=== PATIENT | male | born 1940 | race Caucasian/White ===

== ENCOUNTER 2021-10-10 18:44 | Emergency (ER) | payer MEDICARE, BC, SELFPAY ==
[2021-10-10 18:54] VITALS: BP 156/85; PULSE 63; RESP 18; TEMP 36.8; O2SAT 95; BMI 29.5
--- NOTE | 2021-10-10 18:56 | CRLHL7_ITS ---
For Patients: As a result of the Century Cures Act, medical imaging exams and procedure reports are released immediately into your electronic medical record. You may view this report before your referring provider. If you have questions, please contact your health care provider. INDICATION: Head injury. TECHNIQUE: CT head without contrast. COMPARISON: 06/04/2021. FINDINGS: CSF spaces: Within normal limits for age. Brain parenchyma and extra-axial spaces: The rodrigues-white differentiation is normal. No sign of mass, hemorrhage, or midline shift. No extra-axial fluid collection. Skull base and calvarium: Unchanged opacification of the left maxillary and sphenoid sinuses. The visualized orbits are grossly unremarkable. No skull fractures. Right frontal scalp laceration present. IMPRESSION: Right frontal scalp laceration without fracture or intracranial hemorrhage. Please note that all CT scans at this facility use dose modulation, iterative reconstruction, and/or weight-based dosing when appropriate to reduce radiation dose to as low as reasonably achievable. Dictated by Jersey Anguiano MD @ 10/10/2021 8:14:05 PM (Electronically Signed)
--- NOTE | 2021-10-10 19:06 | ED_ITS ---
HPI - Wound/Laceration General Time Seen by Provider: 19:06 Date Seen: 10/10/21 Chief Complaint: Laceration/Wound Stated Complaint: head laceration Time Seen by Provider: 10/10/21 19:00 Source: patient, family (His daughter is present) and RN notes reviewed Mode of arrival: ambulatory Limitations: no limitations History of Present Illness HPI narrative: Patient was sent directly to head CT with a fall onto concrete causing a laceration to his forehead. Nursing staff triaged him and sent him test head CT as he is on anticoagulation with Coumadin. Patient was seen as soon as he was back in department from head CT. He believes his tetanus is up-to-date per nursing staff but we will be checking that. Patient was working out in the shop when he tripped and lost his balance. He fell forward hitting his head on concrete. He sustained a laceration over his right eyebrow area, there is a flap there that did bleed, bleeding is now subsequently controlled. He denies any loss of consciousness, there was another family member with him which corroborated this history. Denies any neck pain. Denies any visual changes. Denies any difficulty breathing or chest pain. Has no abdominal pain. Did hit his right knee and there is a little discomfort there but was able to ambulate on it. This happened shortly prior to arrival. Patient is on Coumadin. He has been on Coumadin long-term. He believes his last INR was about 4 and half weeks ago and was in the 2 range, he did remember the exact number but I do not remember what he said at time of this dictation. He is scheduled to follow up on the of this month. His daughter reports he has 2 alcoholic beverages a day, nothing more at this point. Location: face Extremity Location: Right: knee Patient tetanus UTD: No (Last in 2006) Context: fall (After tripping) Associated symptoms: pain (In right forehead area where laceration is) Related Data Home Medications Medication Instructions Recorded Confirmed warfarin 5 mg tablet mg 10/10/21 Allergies Allergy/AdvReac Type Severity Reaction Status Date / Time No Known Drug Allergies Allergy Verified 10/10/21 18:54 Review of Systems Status of ROS: Reports: 10 or more systems reviewed and unremarkable except as noted in History and below PFSH PFSH Social History Smoking Status: Unknown if ever smoked Second hand tobacco smoke exposure: No How often do you have a drink containing alcohol: 2-4 times a month How many standard drinks containing alcohol do you have on a typical day: 1 or 2 How often do you have six or more drinks on one occasion: Less than monthly AUDIT-C Alcohol total score: 3 Non-prescribed substance use: denies use Exam Const: Vital Signs, click to edit/add: Vital Signs - 24 hr 10/10/21 18:54 Temperature 98.2 F Pulse Rate [Right Pulse Oximeter] 63 Respiratory Rate 18 Blood Pressure [Ri ght Upper Arm] 156/85 H Pulse Oximetry 95 Documenting provider has reviewed patient's vital signs: yes Common normals: no apparent distress, average body habitus, oriented x3, no limitations, healthy appearing and alert General appearance: cooperative and comfortable Orientation/consciousness: Yes awake HENMT: Common normals: normocephalic, hearing grossly normal bilaterally, external ears normal and external nose normal Head and scalp: normocephalic and laceration (Flap above right eyebrow, L-shaped about 3 cm long) Face and sinus: normal facial exam (Outside of laceration) Nose: external nose normal External ear: external ears normal Eye: Common normals: PERRL, EOMs intact bilaterally and conjunctivae normal Conjunctiva: conjunctiva(e) normal Pupil: PERRL Neck & C-Spine: Common normals: full ROM, no lymphadenopathy, supple and thyroid normal Thyroid: thyroid normal Resp: Common normals: normal respiratory effort and clear to auscultation bilaterally Auscultation: clear to auscultation bilaterally Cardio: Common normals: regular rate, regular rhythm, S1 normal heart sound, S2 normal heart sound, no gallops, no clicks and no murmurs Rate: regular rate Rhythm: regular rhythm Heart sounds: S1 normal and S2 normal Other: Is known to have atrial fibrillation but his heart rate certainly sounds quite regular at this time. GI: Common normals: Normal to inspection, nondistended, normoactive bowel sounds present, soft to palpation, non-tender, no hepatosplenomegaly and no masses Palpation: soft and no hepatosplenomegaly Extremity: Common normals: normal to inspection and full ROM (But complains of pain with full flexion of his right knee.) Other: Joint line is nontender over the right knee joint, no ecchymosis, abrasions or open wounds noted. Neuro: Common normals: oriented x3 Sensorium/orientation: awake and alert Course Course Hospital Course: Patient was sent for head CT immediately. After that patient was examined and laceration repaired after nursing irrigated. Please see procedure note. He did not want his INR done tonight which I think is reasonable. He has no excessive bleeding from his wound and thus I do not have concerns about being supratherapeutic. The a right knee x-ray to rule out fracture. I have reviewed with patient and his daughter that there still could be intra-articular issues such as cartilage damage from a fall. He are ever does not have any joint effusion or swelling with being on Coumadin I think we might see that if there was significant cartilage damage from a fall. Vital Signs Vital signs: Initial Vital Signs Temperature 98.2 F 10/10/21 18:54 Temperature Source Temporal Artery Scan 10/10/21 18:54 Pulse Rate 63 10/10/21 18:54 Respiratory Rate 18 10/10/21 18:54 Blood Pressure 156/85 H 10/10/21 18:54 Blood Pressure Mean 108 10/10/21 18:54 Blood Pressure Position Sitting 10/10/21 18:54 Pulse Oximetry 95 10/10/21 18:54 Oxygen Delivery Method 10/10/21 18:54 Vital Signs Temperature 98.2 F 10/10/21 18:54 Pulse Rate 63 10/10/21 18:54 Respiratory Rate 18 10/10/21 18:54 Blood Pressure 156/85 H 10/10/21 18:54 Pulse Oximetry 95 10/10/21 18:54 Temperature 98.2 F 10/10/21 18:54 Pulse Rate 63 10/10/21 18:54 Respiratory Rate 18 10/10/21 18:54 Blood Pressure 156/85 H 10/10/21 18:54 Pulse Oximetry 95 10/10/21 18:54 MDM - Wound/Laceration MDM Narrative Medical decision making narrative: Rule out intracranial bleed, skull fracture. Also rule out fracture of the knee. Imaging Data CT scan - head: Attestation: I have reviewed the pertinent imaging results. Radiologist's impression: Patient: NIKKIE LEBRON Facility:?[facility] Patient ID:?[id number] Site Patient ID:?[id number]. Site :?[id number] Study:?CT Head W/O-10/10/2021 7:23:46 PM Ordering Physician:?Shannan Araya Final Report: INDICATION: Head injury. TECHNIQUE: CT head without contrast. COMPARISON: 06/04/2021. FINDINGS: CSF spaces: Within normal limits for age. Brain parenchyma and extra-axial spaces: The rodrigues-white differentiation is normal. No sign of mass, hemorrhage, or midline shift. No extra-axial fluid collection. Skull base and calvarium: Unchanged opacification of the left maxillary and sphenoid sinuses. The visualized orbits are grossly unremarkable. No skull fractures. Right frontal scalp laceration present. IMPRESSION: Right frontal scalp laceration without fracture or intracranial hemorrhage. Please note that all CT scans at this facility use dose modulation, iterative reconstruction, and/or weight-based dosing when appropriate to reduce radiation dose to as low as reasonably achievable. Dictated by Jersey Anguiano MD @ 10/10/2021 8:14:05 PM (Electronic Signature) Right knee x-ray: Attestation: I have reviewed the pertinent imaging results. My impression: I do not see or appreciate any acute fracture on my preliminary read but there is a stippling type lesion in the distal femur. Will await Radiology over-read. Radiologist's impression: Patient: NIKKIE LEBRON Facility:?[facility] Patient ID:?[id number] Site Patient ID:?[id number]. Site :?[id number] Study:?XRay Knee 2 VIEWS-10/10/2021 8:19:46 PM Ordering Physician:?Shannan Araya Final Report: INDICATION: Fall, knee pain, injury, pain TECHNIQUE: Knee radiograph 2 views right COMPARISON: None FINDINGS: Bone: No acute fractures or aggressive bone lesions are identified. Is a chondroid type lesion in the distal femur measuring 3 cm in diameter. 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 No significant knee effusion is seen. Soft tissue: Unremarkable. No radiopaque foreign bodies are seen. IMPRESSIONS: 1. No acute osseous injuries or abnormalities are noted. 2. Is a chondroid type lesion in the distal femur measuring 3 cm in diameter. Comparison with any prior outside imaging is recommended. If these cannot be obtained, follow up radiograph in 3 months is warranted to document stability. Dictated by Michael Grider MD @ 10/10/2021 8:43:58 PM Dictated by: Michael Grider MD @ 10/10/2021 20:44:02 (Electronic Signature) Did review with his daughter the chondroid lesion and showed her pictures on the x-ray. She will have him follow up with his primary care provider or orthopedics depending on if he has ongoing issues or if he just needs a 3 month x-ray to see if there is any change. Critical Care Time Critical Care Time Critical Care Time: No Discharge Plan Discharge Clinical Impression: Laceration of face, Fall, Acute pain of right knee Patient Disposition: Home, Self-Care Condition: Stable Instructions: Care For Your Stitches (ED), Laceration (ED), Fall Prevention for Older Adults (ED), Knee Pain (ED) Additional Instructions: Use bandages on the laceration above here I with bacitracin during the day and as needed and if there is some mild bleeding. If concern for infection of the wound, please seek re-evaluation. Can use Tylenol per bottle directions if you have any discomfort. If there is ongoing knee pain, do recommend re-evaluation and consider seen orthopedics. You can see primary care provider or Orthopedics to follow up the chondroid lesion on the x-ray, if he is doing fine it is likely his primary care provider congested artery imaging films of his knee in 3 months time. Activity Level: Activity as Tolerated Prescriptions: No Action warfarin 5 mg tablet 0RF Label Comments: TAKE 2 TABLETS BY MOUTH EVERY DAY OR DIRECTED Follow Up/Referrals: Brien Blunt MD [Primary Care Provider] - Stand Alone Forms: [facility] Info Instructions Procedures Laceration Laceration 1: Pre procedure diagnosis: Right facial laceration, above right eye Post procedure diagnosis: Same Site marking: not applicable Name of person performing procedure: Quiana Campbell Site: face Size (cm): 3 Description: flap Depth: simple, single layer Local Anesthetic: lidocaine 1% Amount of anesthesia used (mL): 5 Pre-repair: wound explored (Flap but only into the superficial tissue.), irrigated extensively and deep structures intact Skin layer closed with: other (Ethilon) Size (cm): 4-0 Number of sutures: 6 Technique: simple, interrupted Conclusion: patient tolerated procedure
--- NOTE | 2021-10-10 19:45 | ED.NURSE ---
irrigation done, 300cc of NS to lac above right eyebrow
[2021-10-10] MEDS: LIDOCAINE 1% 20 ML VIAL 5 ML INJECTION (19:50)
--- NOTE | 2021-10-10 19:53 | CRLHL7_ITS ---
For Patients: As a result of the Cures Act, medical imaging exams and procedure reports are released immediately into your electronic medical record. You may view this report before your referring provider. If you have questions, please contact your health care provider. INDICATION: Fall, knee pain, injury, pain TECHNIQUE: Knee radiograph 2 views right COMPARISON: None FINDINGS: Bone: No acute fractures or aggressive bone lesions are identified. Is a chondroid type lesion in the distal femur measuring 3 cm in diameter. 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 No significant knee effusion is seen. Soft tissue: Unremarkable. No radiopaque foreign bodies are seen. IMPRESSIONS: 1. No acute osseous injuries or abnormalities are noted. 2. Is a chondroid type lesion in the distal femur measuring 3 cm in diameter. Comparison with any prior outside imaging is recommended. If these cannot be obtained, follow up radiograph in 3 months is warranted to document stability. Dictated by Michael Grider MD @ 10/10/2021 8:43:58 PM Dictated by: Michael Grider MD @ 10/10/2021 20:44:02 (Electronically Signed)
[2021-10-10 21:22] VITALS: BP 142/62; PULSE 80; RESP 16; O2SAT 98
--- NOTE | 2021-10-10 21:23 | ED.NURSE ---
pt stated he will get tetanus shot in clinic.
== END 2021-10-10 21:21 | disposition home or self-care (01) ==
LOC: ED 21:07
PROVIDERS: Emergency Provider Family Medicine; PCP Family Medicine
DX: S01.111A Laceration without foreign body of right eyelid and periocular area, initial encounter (principal); M25.561 Pain in right knee; W01.198A Fall on same level from slipping, tripping and stumbling with subsequent striking against other object, initial encounter
CPT/HCPCS: 12013; 70450; 73560; 99284

== ENCOUNTER 2022-04-18 11:42 | Emergency (ER) | payer MEDICARE, BC, SELFPAY ==
[2022-04-18 12:10] VITALS: BP 178/99; PULSE 68; RESP 24; TEMP 37.2; O2SAT 95; BMI 28.7
--- NOTE | 2022-04-18 12:46 | CRLHL7_ITS ---
For Patients: As a result of the Century Cures Act, medical imaging exams and procedure reports are released immediately into your electronic medical record. You may view this report before your referring provider. If you have questions, please contact your health care provider. INDICATION: Shoulder injury from fall TECHNIQUE: Shoulder radiograph 3 views right COMPARISON: None FINDINGS: Bone: No acute fractures or aggressive bone lesions are identified. Cephalad migration of the humeral head is noted, likely due to rotator cuff atrophy and/or tear. Severe diffuse osteopenia is present. Joint: The glenohumeral joint is unremarkable. The acromioclavicular joint has mild osteoarthritis. Soft tissue: Unremarkable. The visualized hemithorax is unremarkable in appearance. No radiopaque foreign bodies are seen. IMPRESSIONS: 1. No acute osseous injuries or abnormalities are noted. 2. Cephalad migration of the humeral head is noted, likely due to rotator cuff atrophy and/or tear. Dictated by Michael Grider MD @ 04/18/2022 1:32:13 PM Dictated by: Michael Grider MD @ 04/18/2022 13:32:20 (Electronically Signed)
--- NOTE | 2022-04-18 12:46 | CRLHL7_ITS ---
For Patients: As a result of the Cures Act, medical imaging exams and procedure reports are released immediately into your electronic medical record. You may view this report before your referring provider. If you have questions, please contact your health care provider. INDICATION: Fall. TECHNIQUE: Chest and left ribs 3 views. COMPARISON: None. FINDINGS: Cardiovascular and mediastinum: Mildly enlarged heart size. Aortic knob is prominent. Mediastinum is within normal limits. Left chest wall pacer with leads extending to the right atrium and ventricle. Lungs and pleural spaces: Lungs are clear. No sign of infiltrate or mass. No sign of pleural effusion. No pneumothorax. Bones and soft tissues: Detailed oblique images of the left ribs demonstrate subtle irregularity in a rib along the left anterior margin. IMPRESSION: Subtle irregularity along a left anterior rib possibly the 5th or 6th rib. Correlate with point tenderness. If there is persistent concern for fracture consider further evaluation with CT of the chest.. Dictated by Osmel Borden MD @ 04/18/2022 1:42:38 PM (Electronically Signed)
--- NOTE | 2022-04-18 12:47 | ED.GENADULT ---
HPI - General Adult General Chief complaint: Extremity Pain/Injury, Upper Stated complaint: Fell, hurt R shoulder, L rib Time Seen by Provider: 04/18/22 11:44 History of Present Illness HPI narrative: This 81-year-old male comes in for evaluation of an injury that occurred just prior to arrival. He was on a wet shop floor and slipped falling on his left side. He has left rib pain. He states that he had immediate pain and was unable to catch his breath for a few seconds. He did not hit his head or have loss of consciousness. He does report also some pain in the anterior aspect of his right shoulder. He is on Coumadin for chronic atrial fibrillation. Related Data Home Medications Medication Instructions Recorded Confirmed calcium-vit D3-ferrous fumarate tab PO 11/06/21 01/24/22 600 mg-125 unit-18 mg tablet clotrimazole 1 % topical cream applic topical 11/06/21 01/24/22 cyanocobalamin (vitamin B-12) 1,000 mcg IM .qmonth 11/06/21 04/18/22 1,000 mcg/mL injection solution triamcinolone acetonide 0.1 % 1 applic topical PRN 11/06/21 01/24/22 topical ointment warfarin 5 mg tablet 10 mg PO QDAY 11/06/21 04/18/22 Previous Rx's Medication Instructions Recorded hydrocodone 5 mg-acetaminophen 325 1 tab PO Q4-6H PRN pain #25 tabs 04/18/22 mg tablet Allergies Allergy/AdvReac Type Severity Reaction Status Date / Time No Known Drug Allergies Allergy Verified 01/24/22 08:46 Review of Systems Status of ROS: Reports: 10 or more systems reviewed and unremarkable except as noted in History and below Narrative: Constitutional: No fevers, no weight gain or loss. Eyes: No discharge. No vision changes. HENT: No congestion, no sore throat, no ear pain. Cardiovascular: No palpitations. Chest: Pain in the left lateral lower ribs. Respiratory: No shortness of breath, no wheezes, no cough. Gastrointestinal: No abdominal pain, no vomiting, no diarrhea. Genitourinary: No dysuria, no hematuria. Musculoskeletal: Normal range of motion. Skin: No rashes, no pruritis. Neurological: No dizziness, weakness, sensory change, speech change. Endo/Heme/Allergies: No bruising or bleeding. No polydipsia. Pysch: no suicidality, no anxiety, no insomnia. All other systems reviewed and are negative. [facility] Medical History Atrial fibrillation History of kidney cancer (~2013) Surgical History History of cholecystectomy (~2004) Social History Smoking Status: Former smoker What tobacco products do you use: cigarettes Smoking quit date/years: >15 years ago and cigars Second hand tobacco smoke exposure: No How often do you have a drink containing alcohol: 2-4 times a month How many standard drinks containing alcohol do you have on a typical day: 1 or 2 How often do you have six or more drinks on one occasion: Less than monthly AUDIT-C Alcohol total score: 3 Non-prescribed substance use: denies use Are you now , , , , never or living with a partner: Social isolation score (0-1 are the most socially isolated patients): 0 Exam Narrative: Exam Narrative: Constitutional: Well-developed, well-nourished. HEENT: Normocephalic, atraumatic. Neck: Normal range of motion. Nontender. Supple. Heart: Irregular. No murmurs. Normal rate. Intact distal pulses. Lungs: Clear to auscultation. No wheezes, rhonchi, or rales. Chest: Pain in the left lateral lower ribs. No sign of bruising. Abdomen: Normal bowel sounds. Nontender. No rebound tenderness. Genitalia: Deferred. Back: No midline tenderness. Normal range of motion. Extremities: Normal range of motion. No injury. Skin: Intact. No rash. Warm. No erythema or pallor. Neurologic: No altered sensation. No weakness. Alert and oriented. Psychiatric: No suicidality. No anxiety or depression. No insomnia. Nursing notes and vitals signs are reviewed. Const: Vital Signs, click to edit/add: Vital Signs - 24 hr 04/18/22 12:10 Temperature 99.0 F Pulse Rate [Pulse Oximeter] 68 Respiratory Rate 24 Blood Pressure [Le ft Upper Arm] 178/99 H Pulse Oximetry 95 Oxygen Delivery Me thod Room Air Course Vital Signs Vital signs: Initial Vital Signs Temperature 99.0 F 04/18/22 12:10 Temperature Source Temporal Artery Scan 04/18/22 12:10 Pulse Rate 68 04/18/22 12:10 Respiratory Rate 24 04/18/22 12:10 Blood Pressure 178/99 H 04/18/22 12:10 Blood Pressure Mean 125 04/18/22 12:10 Blood Pressure Position Sitting 04/18/22 12:10 Pulse Oximetry 95 04/18/22 12:10 Oxygen Delivery Method 04/18/22 12:10 Vital Signs Temperature 99.0 F 04/18/22 12:10 Pulse Rate 68 04/18/22 12:10 Respiratory Rate 24 04/18/22 12:10 Blood Pressure 178/99 H 04/18/22 12:10 Pulse Oximetry 95 04/18/22 12:10 Oxygen Delivery Method 04/18/22 12:10 Temperature 99.0 F 04/18/22 12:10 Pulse Rate 68 04/18/22 12:10 Respiratory Rate 24 04/18/22 12:10 Blood Pressure 178/99 H 04/18/22 12:10 Pulse Oximetry 95 04/18/22 12:10 Oxygen Delivery Method 04/18/22 12:10 Medical Decision Making MDM Narrative Medical decision making narrative: This patient has pain in his left ribs from a fall that occurred prior to arrival. X-ray imaging shows a possibility of a subtle fractures of the 5th and 6th ribs with no significant displacement. Lung crow appear normal without sign of pneumothorax. X-ray imaging of his right shoulder also has no acute findings. The patient received a rib belt and a prescription for tablets of Grant. His daughter made a follow-up appointment with his primary physician about a week from now. Imaging Data Chest x-ray: Radiologist's impression: Subtle irregularity along a left anterior rib possibly the 5th or 6th rib. Correlate with point tenderness. If there is persistent concern for fracture consider further evaluation with CT of the chest.. Discharge Plan Discharge Clinical Impression: Fracture, ribs Patient Disposition: Home w/ Parent or Adult Condition: Stable Additional Instructions: Take medication as needed and directed. Activity as tolerated. Follow up with primary MD or return if worsening. Prescriptions: New hydrocodone-acetaminophen 5-325 mg tablet 1 tab PO Q4-6H PRN (Reason: pain) Qty: 25 0RF No Action cyanocobalamin (vitamin B-12) 1,000 mcg/mL solution 1,000 mcg IM .qmonth triamcinolone acetonide 0.1 % ointment 1 applic topical PRN clotrimazole 1 % cream topical [id number] fumarate 600-125-18 mg-unit-mg tablet PO warfarin 5 mg tablet 10 mg PO QDAY Label Comments: TAKE 2 TABLETS BY MOUTH EVERY DAY OR DIRECTED Follow Up/Referrals: Brien Blunt MD [Primary Care Provider] - Stand Alone Forms: [facility] Info Instructions
[2022-04-18] MEDS: MORPHINE 10 MG/ML inj 6 MG IM (12:58)
[2022-04-18 14:18] VITALS: BP 138/91; PULSE 89; RESP 18; TEMP 36.7; O2SAT 93
== END 2022-04-18 14:40 | disposition home or self-care (01) ==
PROVIDERS: Emergency Provider Emergency Medicine Emergency Medical Services; PCP Family Medicine
DX: S22.39XA Fracture of one rib, unspecified side, initial encounter for closed fracture (principal); W01.0XXA Fall on same level from slipping, tripping and stumbling without subsequent striking against object, initial encounter
CPT/HCPCS: 71101; 73030; 96372; 99284; J2270

== ENCOUNTER 2023-05-04 12:13 | Emergency (ER) | payer MEDICARE, BC, SELFPAY ==
[2023-05-04 12:23] VITALS: BP 145/89; PULSE 83; RESP 16; TEMP 36.3; O2SAT 92; BMI 28.8
--- NOTE | 2023-05-04 12:32 | ED_ITS ---
HPI - General Adult General Date Seen: 05/04/23 Chief complaint: Back Injury/Pain Stated complaint: left flank pain Time Seen by Provider: 05/04/23 12:29 History of Present Illness HPI narrative: 82-year-old gentleman with a history of metastatic renal cell carcinoma (status post partial nephrectomy. Has a history of pancreatic met treated with radiation), atrial fibrillation(on warfarin), who presents to the ER today for evaluation of left flank pain. 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 He does says that he was pulling really hard on a ranch to loosen in up a stopper nut. He was twisti ng his torso to do that. He did that activity several days ago. Since then he has been having some mild pain in his left flank. He did not need to take any medicine for it. However yesterday began to get worse. He now has more intense pain whenever he tries to move, sit up, or twist his torso. The pain is located in the left flank. It does not radiate. No anterior abdominal pain. No pain up into his ribs. No trouble breathing. No pain with breathing. No shortness of breath. No midline back pain. The pain does not radiate down to his hip or lower extremity. No associated numbness or tingling. Urination has been normal. No fever. Overnight his pain got worse and now is not tolerable. He says when he holds still it is pretty mild but whenever he tries to move the pain is intense. He had taken Tylenol at home with minimal improvement. Per medical record: 04/18/22-ER visit for an injury. He slipped and fell on a wet shot floor and injured his left side. He had left rib pain. No head injury. X-ray showed possible left 5th and rib fractures. Prescribed hydrocodone for pain. 04/25/23-oncology visit. Oncology Hx: 2013 left renal mass s/p left open partial nephrectomy with pathology significant for 3.4cm gr2/4 clear cell renal cell carcinoma. AJCC 7 pT1aNX. 2. 2019 enhancing pancreatic lesion?identified 3. 08/10/2022 pancreatic lesion enlarged, EUS FNA bx positive for metastatic gr2 RCC 4. 8-11/23 SBRT to pancreatic oligometastasis 3000cGY in 5 fractions at [facility] 5. 01/2023 Pancreatic mass appears similar post-radiation consistent with indolent RCC. Also new indeterminate enhancing hepatic lesion, low suspicion for RCC metastasis. Interval Hx: From a clinical perspective, Mr. Mckeon is feeling well. He has had some mild left flank discomfort over the past 1-2 weeks, he notes that he often times over does it in his shop in feels that his current discomfort may be related to this. He is not having any urinary symptoms, no will hematuria. He is not having any abdominal pain, nausea or unintentional weight loss. He is accompanied today by his daughter who is in our an RN her at [facility]. Plan Mr. Mckeon is seen today to establish care for surveillance of oligo metastatic grade 2 clear cell renal cell carcinoma with most recent imaging from January 2023 showing no evidence of active disease, postradiation change noted involving the pancreas. Plan for follow-up at [address] chest/abdomen/pelvis prior. He will contact us in the interim if he has concerns such as hematuria, flank pain, unintentional weight loss, or major decline in overall energy level. Related Data Home Medications Medication Instructions Recorded Confirmed calcium-vit D3-ferrous fumarate tab PO 11/06/21 03/19/23 600 mg-125 unit-18 mg tablet cyanocobalamin (vitamin B-12) 1,000 mcg IM .qmonth 11/06/21 03/19/23 1,000 mcg/mL injection solution triamcinolone acetonide 0.1 % 1 applic topical PRN 11/06/21 03/19/23 topical ointment warfarin 5 mg tablet 10 mg PO QDAY 11/06/21 03/19/23 denosumab 60 mg/mL subcutaneous 60 mg subcut [id number] 09/12/22 03/19/23 syringe Previous Rx's Medication Instructions Recorded lidocaine 5 % topical patch See Rx Instructions topical 03/21/23 .COMPLEX #30 ea cephalexin 500 mg capsule 500 mg PO Q12H #20 caps 05/04/23 lidocaine 5 % topical patch 1 patch topical DAILY #15 ea 05/04/23 oxycodone 5 mg capsule 5 mg PO Q6H PRN pain #10 caps 05/04/23 Allergies Allergy/AdvReac Type Severity Reaction Status Date / Time No Known Drug Allergies Allergy Verified 04/25/23 11:16 PFSH [facility] Medical History (Updated 05/04/23 @ 14:39 by James Rodriguez MD) Metastatic renal cell carcinoma of pancreas ?C64.9 - Malignant neoplasm of unspecified kidney, except renal pelvis (ICD- 10) ?C78.89 - Secondary malignant neoplasm of other digestive organs (ICD-10) Renal cell cancer ?C64.9 - Malignant neoplasm of unspecified kidney, except renal pelvis (ICD- 10) History of kidney cancer (~2013) ?Z85.528 - Personal history of other malignant neoplasm of kidney (ICD-10) Atrial fibrillation ?I48.91 - Unspecified atrial fibrillation (ICD-10) Surgical History (Updated 11/08/22 @ 10:30 by Tarik Dow) S/P YAG capsulotomy, bilateral (11/23/20) ?Z98.890 - Other specified postprocedural states (ICD-10) H/O bilateral cataract extraction (~2020) ?Z98.41 - Cataract extraction status, right eye (ICD-10) ?Z98.42 - Cataract extraction status, left eye (ICD-10) History of partial nephrectomy (2013) ?Z90.5 - Acquired absence of kidney (ICD-10) History of cholecystectomy (04/08/06) ?Z90.49 - Acquired absence of other specified parts of digestive tract (ICD- 10) Social History (Reviewed 09/12/22 @ 15:12 by Thelma Rashid ~ [facility]) Smoking Status: Former smoker What tobacco products do you use: cigarettes Smoking quit date/years: >15 years ago and cigars Second hand tobacco smoke exposure: No How often do you have a drink containing alcohol: 2-4 times a month How many standard drinks containing alcohol do you have on a typical day: 1 or 2 How often do you have six or more drinks on one occasion: Less than monthly AUDIT-C Alcohol total score: 3 Non-prescribed substance use: denies use Are you now , , , , never or living with a partner: Social isolation score (0-1 are the most socially isolated patients): 0 Exam Narrative: Exam Narrative: Constitutional: Appears well-developed and well-nourished. Alert. Conversant. Non toxic. Polite. Whenever he tries to move he grimaces in pain and grunts. HENT: Head: Atraumatic. Nose: Nose normal. Mouth/Throat: Oral mucosa is clear and moist. no trismus. Pharynx normal. Tonsils symmetric. No tonsillar enlargement, erythema, or exudate. Eyes: Conjunctivae normal. EOM normal. Pupils equal, round, and reactive to light. No scleral icterus. Neck: Normal range of motion. Neck supple. No tracheal deviation present. Cardiovascular: Normal rate, regular rhythm. No gallop. No friction rub. No murmur heard. Symmetric radial artery pulses Pulmonary/Chest: Effort normal. No stridor. No respiratory distress. No wheezes. No rales. No rhonchi . No tenderness. Abdominal: Soft. Bowel sounds normal. No distension. No mass. No tenderness. No rebound. No guarding. No CVA tenderness. Musculoskeletal: No rib cage, thoracic, lumbar spine tenderness or step-off. He is mildly tender over the left flank. No bruising, redness, abrasion. No shingles. Bony pelvis is nontender including the posterior sacrum, posterior iliac bones, ASIS, and hips. Pelvis is stable. RUE: Normal range of motion. No tenderness. No deformity LUE: Normal range of motion. No tenderness. No deformity RLE: Normal range of motion. No edema. No tenderness. No deformity LLE: Normal range of motion. No edema. No tenderness. No deformity Neurological: Alert and oriented to person, place, and time. Normal strength. CN II-VII intact. No sensory deficit. GCS eye subscore is 4. GCS verbal subscore is 5. GCS motor subscore is 6. Normal coordination Skin: Skin is warm and dry. No rash noted. No pallor. Normal capillary refill. Psychiatric: Normal mood. Normal affect. Const: Vital Signs, click to edit/add: Vital Signs - 24 hr 05/04/23 12:23 Temperature 97.4 F L Pulse Rate [Pulse Oximeter] 83 Respiratory Rate 16 Blood Pressure [Ri ght Upper Arm] 145/89 H Pulse Oximetry 92 Oxygen Delivery Me thod Room Air Course Vital Signs Vital signs: Initial Vital Signs Temperature 97.4 F L 05/04/23 12:23 Temperature Source Temporal Artery Scan 05/04/23 12:23 Pulse Rate 83 05/04/23 12:23 Respiratory Rate 16 05/04/23 12:23 Blood Pressure 145/89 H 05/04/23 12:23 Blood Pressure Mean 107 H 05/04/23 12:23 Blood Pressure Position Sitting 05/04/23 12:23 Pulse Oximetry 92 05/04/23 12:23 Oxygen Delivery Method Room Air 05/04/23 12:23 Vital Signs Temperature 97.4 F L 05/04/23 12:23 Pulse Rate 83 05/04/23 12:23 Respiratory Rate 16 05/04/23 12:23 Blood Pressure 145/89 H 05/04/23 12:23 Pulse Oximetry 92 05/04/23 12:23 Oxygen Delivery Method Room Air 05/04/23 12:23 Temperature 97.4 F L 05/04/23 12:23 Pulse Rate 83 05/04/23 12:23 Respiratory Rate 16 05/04/23 12:23 Blood Pressure 145/89 H 05/04/23 12:23 Pulse Oximetry 92 05/04/23 12:23 Oxygen Delivery Method Room Air 05/04/23 12:23 Medications Administered Medications: Generic Name Dose Route Start Last Admin Trade Name Freq PRN Reason Stop Dose Admin Oxycodone/Acetaminophen 1 tab 05/04/23 12:49 05/04/23 13:16 Oxycodone/Apap 5-325 Tablet PO 1 tab Q4H PRN Administration Discontinued Medications Generic Name Dose Route Start Last Admin Trade Name Freq PRN Reason Stop Dose Admin Lidocaine 1 patch 05/04/23 12:49 05/04/23 13:15 Lidocaine 5% Patch TRANSDERMA 05/04/23 12:50 1 patch ONCE ONE Administration Protocol Ondansetron HCl 4 mg 05/04/23 12:49 05/04/23 13:16 Ondansetron Odt 4 Mg Tab PO 05/04/23 12:50 4 mg ONCE ONE Administration Medical Decision Making MDM Narrative Medical decision making narrative: Presented to the Emergency Department with left flank abdominal pain. The differential diagnosis of abdominal pain includes: Kidney pathology such as recurrent tumor, perinephric hematoma since he is on warfarin, UTI, kidney stone, as well as GI pathology, Bowel Obstruction, Ulcer, Ischemia, Cholecystitis, Diverticulitis, Pancreatitis, Colitis, amongst many other etiologies. Overall though, clinical presentation would be most consistent with musculoskeletal left flank pain. Given medical history we did obtain workup to rule out other conditions. Laboratory testing does not reveal a cause for the patient's pain. Stone protocol CT Imaging is noted to be normal. Discussed with the patient and his daughter that without contrast cannot definitively rule out conditions such as renal infarct or artery thrombosis but overall with reassuring labs, likelihood of those conditions is very very low. At this point visual the risk of contrast exposure would outweigh the benefit. Urinalysis does show pyuria which could indicate possible UTI. Clinic a I suspect the patient probably has cystitis but we will treat him with antibiotics with a duration suspicion for pyelonephritis as well. Cephalexin started today, pending urine culture. He is subtherapeutic on his INR. Turns out he missed a dose 36 hours ago. Therefore will not change any medications now. Recommend follow-up INR on Saturday. Also discussed that being on antibiotic therapy could disturb his INR He had very good improvement in his flank pain with lidocaine patch and 1 oxycodone tablet. He is not having excessive side effects or drowsiness or unsteadiness. Discharge home with a plan for pain control including the following: Tylenol as needed. Add lidocaine patch every morning. Use oxycodone only if needed for breakthrough pain uncontrolled by those medications. Opiate and sedation precautions reviewed in detail with the patient and his family. No life threatening cause or need for emergent surgery or hospital admission is detected today. The patient also understands that if they worsen, they should return to the ER right away. I discussed the uncertainty about the diagnosis and answered the patient's questions. Abdominal pain return precautions discussed. Lab Data Labs: Lab Results 05/04/23 05/04/23 Range/Units 13:10 13:15 WBC 6.63 (4.50-11.00) K/uL RBC 4.44 (4.30-5.90) m/uL Hgb 14.2 (13.5-17.5) gm/dL Hct 43.2 (37.0-53.0) % MCV 97 (80-100) fL MCH 32 (26-34) pg MCHC 33 (32-36) gm/dL RDW Coeff of Coleman 13.0 (11.5-15.5) % Plt Count 262 (140-440) K/uL Neut % (Auto) 67.4 (42.0-72.0) % Lymph % (Auto) 21.1 (20-44) % [place] % (Auto) 9.7 (0.0-11.0) % Eos % (Auto) 1.1 (0.0-7.0) % Baso % (Auto) 0.5 (0.0-3.0) % Neut # (Auto) 4.48 (1.7-7.0) K/uL Lymph # (Auto) 1.40 (0.90-2.90) K/uL [place] # (Auto) 0.60 (0.00-0.90) K/UL Eos # (Auto) 0.07 (0.00-0.50) K/uL Baso # (Auto) 0.03 (0.00-0.30) K/uL Abs Immat Gran (auto) 0.01 (0.00-0.30) K/uL Imm/Tot Granulo (auto) 0.2 % INR 1.51 H (0.91-1.10) Sodium 140 (135-149) mmol/L Potassium 4.4 (3.6-5.1) mmol/L Chloride 106 (96-114) mmol/L Carbon Dioxide 25 (20-32) mmol/L Anion Gap 9 (7-15) mEq/L BUN 15 (7-30) mg/dL Creatinine 0.9 (0.5-1.5) mg/dL Estimated Creat Clear 65.08 Estimated GFR 85 ml/min Glucose 100 (60-115) mg/dL Calcium 9.3 (8.4-10.6) mg/dL Lipase 58 (23-300) U/L Urine Color Yellow (Yellow) Urine Appearance Clear (Clear) Urine pH 7.0 (5.0-8.5) Ur Specific [place] 1.020 (1.000-1.030) Urine Protein Negative (Negative) Urine Glucose (UA) Negative (Negative) Urine Ketones Negative (Negative) Urine Blood Negative (Negative) Urine Nitrite Negative (Negative) Urine Bilirubin Negative (Negative) Urine Urobilinogen 2.0 A (0.2-1.0) Ur Leukocyte Esterase 1+ A (Negative) Urine RBC 0-2 (0-2) Urine WBC 10-25 A (0-5) Ur Squamous Epith Cells Few (None-Few) Urine Bacteria Few A (None) Urine Mucus Few A (None) Imaging Data CT scan - abdomen: Attestation: I have reviewed the pertinent imaging results. Radiologist's impression: IMPRESSION: 1. Stable right renal cyst. Interval postop changes left kidney. No hydronephrosis. No ureteral dilatation 2. No abnormal bowel distention, bowel wall thickening or inflammation. 3. No free air or free fluid. Discharge Plan Discharge Clinical Impression: Acute left flank pain, Subtherapeutic international normalized ratio (INR), Acute UTI Patient Disposition: Home, Self-Care Condition: Stable Instructions: Urinary Tract Infection in Men (DC), Flank Pain (ED) Additional Instructions: As we discussed, your INR level is low today. Please continue on your Coumadin dose and have it rechecked again on Saturday or . You have signs of an infection in your bladder. Please take the prescribed antibiotics. I suspect that the pain in your left side is probably due to injured muscles and is probably not a kidney infection. To treat your side pain, start with Tylenol. Use lidocaine patches every day. Use the prescription oxycodone if needed if you have pain uncontrolled by the Tylenol or lidocaine patch. Be careful with oxycodone because it causes drowsiness, dizziness, constipation, and can cause confusion. Oxycodone, like all prescription pain killers, can be addictive. Come back to the ER right away if you have any concerns especially fever, worsening or uncontrolled pain, trouble breathing, pain radiating down your leg, or any other concerns. Prescriptions: New oxycodone 5 mg capsule 5 mg PO Q6H PRN (Reason: pain) Qty: 10 0RF lidocaine 5 % adhesive patch,medicated 1 patch topical DAILY Qty: 15 0RF Rx Instructions: leave on most painful area for up to 12 hrs cephalexin 500 mg capsule 500 mg PO Q12H Qty: 20 0RF No Action cyanocobalamin (vitamin B-12) 1,000 mcg/mL solution 1,000 mcg IM .qmonth triamcinolone acetonide 0.1 % ointment 1 applic topical PRN [id number] fumarate 600-125-18 mg-unit-mg tablet PO denosumab 60 mg/mL syringe 60 mg subcut [id number] warfarin 5 mg tablet 10 mg PO QDAY Patient Comments: TAKE 2 TABLETS BY MOUTH EVERY DAY OR DIRECTED lidocaine 5 % adhesive patch,medicated See Rx Instructions topical .COMPLEX Qty: 30 3RF Rx Instructions: leave on most painful area for up to 12 hrs topical Follow Up/Referrals: Brien Blunt MD [Primary Care Provider] - Stand Alone Forms: [facility] Info Instructions
--- OUTSIDE RECORDS SUMMARY | 2023-05-04 12:40 | XMS_ITS | Encounter Summary ---
Author Name Unknown Organization [facility] Address [address] [place] [address] Care Team Providers Care Forensic Manager Name Role Phone Brien Blunt MD Primary Care Provider [phone] Reason for Visit * Diagnostic Imaging CT Scan (Routine) - Closed Specialty Diagnoses / Procedures Referred By Robles t Referred To Contact Radiology. Diagnoses Paroxysmal atrial fibrillation (H) Headache Procedures CT Head w/o Contrast CT Head w/o & w Contrast Derrell Covarrubias MD [facility] [address] [place] [address] [address] Scan [id number] [id number] Referral ID Status Reason Start Date Expiration Date Visits Re quested Visits Authorized [id number] Closed 08/29/2022 08/29/2023 1 1 Encounter Details Date Type Department Care Team (Late st Contact Info) Description 09/10/2022 9:23 AM CDT - 09/10/2022 11:59 PM CDT Hospital Encounter [facility] [id number] [phone] Derrell Covarrubias MD [facility] [address] [place] [address] Paroxysmal atrial fibrillation (H); Headache Discharge Disposition: Home or Self Care Social History Tobacco Use Types Packs/Day Years Used Date Smoking Tobacco: Former Cigarettes Q uit: 1989 Smokeless Tobacco: Never Alcohol Use Standard Drinks/Week Comments Yes 2 (1 standard drink = 0.6 oz pur e alcohol) 3-4 drinks/ wk Sex and Gender Information Value Date Recorded Sex Assigned at Not on file Gender Identity Not on file Sexual Orientation Not on file COVID-19 Exposure Response Date Recorded In the last 10 days, have yo u been in contact with someone who was confirmed or suspected to have Coronavirus/COVID-19? No / Unsure 09/10/2022 9:21 AM CDT documented as of this encounter Medications at Time of Discharge Medication Sig Dispensed Refills Start Date End Date Kdvifyl-Dsusqdtzq-Fqfsgx n D 600-40-500 MG-MG-UNIT TB24 0 clotrimazole (LOTRIMIN) 1 % vaginal cream Place vaginally 2 times daily 0 cyanocobalamin (CYANOCOBALAMIN) 1000 MCG/ML injection Inject 1 mL into the muscle every 30 days 0 denosumab (PROLIA) 60 MG/ML SOSY injection Inject 60 mg Subcutaneous once 0 sildenafil (VIAGRA) 100 MG tablet Take 100 mg by mouth daily as needed 0 warfarin ANTICOAGULANT (COUMADIN) 5 MG tablet Take 5 mg by mouth daily 0 documented as of this encounter Plan of Treatment Not on file documented as of this encounter Procedures Procedure Name Priority Date/Time Associated Diagnosis Comments CT HEAD W/O CONTRAST Routine 09/10/2022 9:47 AM CDT Paroxysmal atrial fibrillation (H) Headache documented in this encounter Results * CT Head w/o Contrast (09/10/2022 9:47 AM CDT) Anatomical Region Laterality Modality Head, SUBRAD CT NEURO, SUBRA D CT NEURO, UMP CT NEURO, RAD CT Computed Tomography Impressions 09/10/2022 10:10 AM CDT IMPRESSION: Probable chronic left maxillary and sphenoid sinusitis. Diffuse cerebral volume loss and cerebral white matter changes consistent with chronic small vessel ischemic disease. No evidence for acute intracranial pathology. Radiation dose for this scan was reduced using automated exposure control, adjustment of the mA and/or kV according to patient size, or iterative reconstruction technique KE JONES MD Narrative 09/10/2022 10:[address] OF THE HEAD WITHOUT CONTRAST 09/10/2022 9:47 AM COMPARISON: None HISTORY: Paroxysmal atrial fibrillation (H); Headache TECHNIQUE: [address] images of the head were acquired without IV contrast material. FINDINGS: There is mild diffuse cerebral volume loss. There are subtle patchy areas of decreased density in the cerebral white matter bilaterally that are consistent with sequela of chronic small vessel ischemic disease. The ventricles and basal cisterns are within normal limits in configuration given the degree of cerebral volume loss. ??There is no midline shift. There are no extra-axial fluid collections. No intracranial hemorrhage, mass or recent infarct. There is presumed chronic sinusitis in the left maxillary sinus and left locule of the sphenoid sinus. Remaining paranasal sinuses are well aerated. There is no mastoiditis. There are no fractures of the visualized bones. Procedure Note Ke Jones MD - 09/10/2022 CT OF THE HEAD WITHOUT CONTRAST 09/10/2022 9:47 AM COMPARISON: None HISTORY: Paroxysmal atrial fibrillation (H); Headache TECHNIQUE: [address] images of the head were acquired without IV contrast material. FINDINGS: There is mild diffuse cerebral volume loss. There are subtle patchy areas of decreased density in the cerebral white matter bilaterally that are consistent with sequela of chronic small vessel ischemic disease. The ventricles and basal cisterns are within normal limits in configuration given the degree of cerebral volume loss. There is no midline shift. There are no extra-axial fluid collections. No intracranial hemorrhage, mass or recent infarct. There is presumed chronic sinusitis in the left maxillary sinus and left locule of the sphenoid sinus. Remaining paranasal sinuses are well aerated. There is no mastoiditis. There are no fractures of the visualized bones. IMPRESSION: Probable chronic left maxillary and sphenoid sinusitis. Diffuse cerebral volume loss and cerebral white matter changes consistent with chronic small vessel ischemic disease. No evidence for acute intracranial pathology. Radiation dose for this scan was reduced using automated exposure control, adjustment of the mA and/or kV according to patient size, or iterative reconstruction technique KE JONES MD Derrell Covarrubias MD IM CT ORDERABLES documented in this encounter Visit Diagnoses Diagnosis Paroxysmal atrial fibrillation (H) Atrial fibrillation Headache documented in this encounter Care Teams Forensic Manager Relationship Specialty Start Date End Date Brien Blunt MD PCP - General Family Medicine 08/06/22 documented as of this encounter
--- OUTSIDE RECORDS SUMMARY | 2023-05-04 12:40 | XMS_ITS | Encounter Summary ---
Author Name Unknown Organization [facility] Address [address] [place] [address] Care Team Providers Care Crusher Tender Name Role Phone Unavailable Primary Care Provider Unavailabl e Reason for Referral * MRI/CAT/PET Scan (Routine) - Closed Specialty Diagnoses / Procedures Referred By Contac t Referred To Contact Radiology Diagnoses Carcinoma Renal Cell Left (HCC) Procedures CT Abdomen Pelvis with IV Contrast CT Abdomen Pelvis without and with IV Contrast Heriberto Kaba M.D., Ph.D. [address] [place] [phone] [facility] Referral ID Status Reason Start Date Expiration Date Visits Re quested Visits Authorized [id number] Closed 09/24/2022 09/24/2023 1 1 ET PUNCH PRESS OPERATOR * MRI/CAT/PET Scan (Routine) - Closed Specialty Diagnoses / Procedures Referred By Contac t Referred To Contact Radiology Diagnoses Carcinoma Renal Cell Left (HCC) Procedures CT Chest with IV Contrast Heriberto Kaba M.D., Ph.D. [address] [place] [address] [facility] Referral ID Status Reason Start Date Expiration Date Visits Re quested Visits Authorized [id number] Closed 09/24/2022 09/24/2023 1 1 ET PUNCH PRESS OPERATOR Reason for Visit * MRI/CAT/PET Scan (Routine) - Closed Specialty Diagnoses / Procedures Referred By Robles rivas Referred To Contact Radiology Diagnoses Carcinoma Renal Cell Left (HCC) Procedures CT Chest with IV Contrast Heriberto Kaba M.D., Ph.D. [address] [place] [phone] [facility] Referral ID Status Reason Start Date Expiration Date Visits Re quested Visits Authorized [id number] Closed 09/24/2022 09/24/2023 1 1 Encounter Details Date Type Department Care Team (Latest Contact Info) Description 02/25/2023 8:26 AM TURRET PUNCH PRESS OPERATOR - 02/25/2023 11:59 PM TURRET PUNCH PRESS OPERATOR Hospital Encounter Department of Radiology, [facility], in [place], [place] [address] [place] [phone] Heriberto Kaba M.D., Ph.D. [address] [place] [phone] Carcinoma Renal Cell Left (HCC) Discharge Disposition: Home or Self Care Social History Tobacco Use Types Packs/Day Years Used Date Smoking Tobacco: Former Cigarettes 0.5 20 Cigars Smokeless Tobacco: Never Alcohol Use Standard Drinks/Week Comments Yes 3 (1 standard drink = 0.6 oz pur e alcohol) Humiliation, Afraid, Rape, and Kick questionnair e Answer Date Recorded Within the last year, have y ou been afraid of your partner or ex-partner? No 06/27/2022 Within the last year, have y ou been humiliated or emotionally abused in other ways by your partner or ex-partner? No Within the last year, have y ou been kicked, hit, slapped, or otherwise physically hurt by your partner or ex-partner? No 06/27/2022 Within the last year, have y ou been raped or forced to have any kind of sexual activity by your partner or ex-partner? No 06/27/2022 Social Connection and Isolation Panel [NHANES] A nswer Date Recorded In a typical week, how many times do you talk on the phone with family, friends, or neighbors? Twice a week 06/28/19 23 How often do you get togethe r with friends or relatives? Twice a week 06/27/2022 How often do you attend chur ch or buddhism services? 1 to 4 times per year 06/27/2022 Do you belong to any clubs o r organizations such as quaker groups, unions, fraternal or athletic groups, or school groups? Yes 06/27/2022 How often do you attend meet ings of the clubs or organizations you belong to? 1 to 4 times per year 06/27/2022 Are you , , di vorced, , never , or living with a partner? 06/27/2022 AUDIT-C Answer Date Recorded Q1: How often do you have a drink containing alc ohol? 2-4 times a month 06/27/2022 Q2: How many drinks containi ng alcohol do you have on a typical day when you are drinking? 3 or 4 06/27/2022 Q3: How often do you have si x or more drinks on one occasion? Monthly 06/27/2022 Overall Financial Resource Strain (CARDIA) Answe r Date Recorded How hard is it for you to pa y for the very basics like food, housing, medical care, and heating? Not hard at all 06/27/2022 [facility] [place] of Occupat ional Health - Occupational Stress Questionnaire Answer Date Recorded Do you feel stress - tense, restless, nervous, or anxious, or unable to sleep at night because your mind is troubled all the time - these days? To some extent 06/27/2022 Exercise Vital Sign Answer Date Recorde d On average, how many days pe r week do you engage in moderate to strenuous exercise (like a brisk walk)? 2 days 06/27/2022 On average, how many minutes do you engage in exercise at this level? 30 min 06/27/2022 Hunger Vital Sign Answer Date Recorded Within the past 12 months, y ou worried that your food would run out before you got the money to buy more. Never true 06/28/19 23 Within the past 12 months, t he food you bought just didn't last and you didn't have money to get more. Never true 06/27/2022 PRAPARE - Transportation Answer Date Re corded In the past 12 months, has l ack of transportation kept you from medical appointments or from getting medications? No 05/31 In the past 12 months, has l ack of transportation kept you from meetings, work, or from getting things needed for daily living? No 06/27/2022 Housing Stability Vital Sign Answer Aristeo e Recorded In the last 12 months, was t here a time when you were not able to pay the mortgage or rent on time? No 06/27/2022 In the last 12 months, how many places have you lived? 1 06/27/2022 In the last 12 months, was t here a time when you did not have a steady place to sleep or slept in a nursing home (including now)? No 06/27/2022 Nutrition Answer Date Recorded Nutrition: EVOO Fat Source No 06/27 On average, how many serving s of fruits and vegetables do you eat per day (serving size is equal to 1 cup or approximately the size of a tennis ball)? 2-3 06/27/2022 Dental Answer Date Recorded Dental: Regular Dentist Yes 06/28/19 Employment Answer Date Recorded Employment status Retired 06/27/2022 Education Answer Date Recorded What is the highest level of school you have completed or the highest degree you have received? 12th grade 06/27/2022 Sex and Gender Information Value Date Recorded Sex Assigned at Male 05/30/2018 12:39 PM TURRET PUNCH PRESS OPERATOR Gender Identity Male 05/30/2018 12:39 PM TURRET PUNCH PRESS OPERATOR Sexual Orientation Straight 05/30/2018 12 :39 PM TURRET PUNCH PRESS OPERATOR documented as of this encounter Medications at Time of Discharge Medication Sig Dispensed Refills Start Date End Date BD SafetyGlide Syringe 3 mL 23 x 1 syringe See Admin Instructions. 0 06/08/2020 calcium carbonate-vitamin D3 1,250 mg (500 mg calcium)-5 mcg (200 Unit) per tablet Take 1 tablet by mouth daily with breakfast. 0 calcium citrate/vitamin D3 (CITRACAL REGULAR ORAL) Take 1 tablet by mouth 2 (two) times a day. 0 04/25/2016 clotrimazole (LOTRIMIN) 1 % cream Apply 1 Application topically as needed. 0 clotrimazole-betameth dip-zinc 1-0.05-20 % combo pack 0 11/06/2021 cyanocobalamin (VITAMIN B12) 1,000 mcg/mL injection every 30 (thirty) days. 4 04/02/2018 denosumab (PROLIA) 60 mg/mL syringe Inject 1 mL (60 mg total) under the skin every 6 (six) months. 1 mL 1 05/30/2018 denosumab (PROLIA) 60 mg/mL syringe Inject 1 mL (60 mg total) under the skin every 6 (six) months. 1 mL 1 11/07/2022 sildenafiL (VIAGRA) 50 mg tablet Take 1 tablet by mouth as directed. 0 11/02/2013 triamcinolone (KENALOG) 0.1 % cream Apply topically as needed. 0 04/25/2016 warfarin (COUMADIN) 5 mg tablet Take 10 mg by mouth daily. 0 05/09/2018 documented as of this encounter Plan of Treatment Scheduled Orders Name Type Priority Associated Diagnoses Orde r Schedule Creatinine, POCT Point of Care Testing-Docked Device Routine Routine lab collecti on (next collection) for 1 Occurrences starting 02/25/2023 until 02/25/2023 documented as of this encounter Procedures Procedure Name Priority Date/Time Associated Diagnosis Comments CT ABDOMEN PELVIS WITH IV CONTRAST RAD - Routine (most inpatients and all outpatients) 02/25/2023 9:26 AM TURRET PUNCH PRESS OPERATOR Carcinoma Renal Cell Left (HCC) CT CHEST WITH IV CONTRAST RAD - Routine (most inpatients and all outpatients) 02/25/2023 9:26 AM TURRET PUNCH PRESS OPERATOR Carcinoma Renal Cell Left (HCC) CREATININE, POCT, B Routine 02/25/2023 9:07 AM TURRET PUNCH PRESS OPERATOR CREATININE, POCT, B Routine 02/25/2023 9:07 AM TURRET PUNCH PRESS OPERATOR documented in this encounter Results * CT Abdomen Pelvis with IV Contrast (02/25/2023 9:26 AM TURRET PUNCH PRESS OPERATOR) Anatomical Region Laterality Modality Abdomen, Pelvis, Abdominal R ST LOS, Abdominal ARZ LOS, Abdominal FLA LOS N/A Computed Tomograp hy, Computed Tomography 02/25/2023 9:23 AM TURRET PUNCH PRESS OPERATOR Impressions 02/25/2023 9:42 AM TURRET PUNCH PRESS OPERATOR 1. New indeterminate enhancing hepatic lesion, low suspicion for RCC metastasis. 2. Minimal enlargement of a pancreatic metastasis. 3. Stable partial left nephrectomy. Narrative 02/25/2023 9:42 AM TURRET PUNCH PRESS OPERATOR EXAM: ??CT ABDOMEN PELVIS WITH IV CONTRAST COMPARISON: ??06/29/2022, 06/16/2021 FINDINGS: ??Partial left nephrectomy. No suspicious enhancement in the left kidney suggest recurrent neoplasm. No solid or enhancing right renal mass. Bilateral simple renal cysts. New enhancing 0.5 cm nodule in the superior aspect of the left hepatic lobe only visible on cortical medullary phase imaging (series 3, image 17) and not definitely visualized on prior exams. No other suspicious hepatic mass. Hepatic cyst. Cholecystectomy. Splenic cyst. Minimal interval enlargement of the enhancing metastatic nodule in the head of the pancreas now measuring approximately 1.3 x 1.5 x 1.4 cm (previously 1.4 x 1.2 x 1.2 cm). No new pancreatic masses. Negative adrenal glands. No enlarged abdominal lymph nodes. Small enhancing nodularity arising from the GE junction (series 3, image 30), potentially small polyp. Diverticulosis. Moderate prostate enlargement. Osteopenia. No suspicious skeletal lesions. This examination was performed in conjunction with a CT of the chest, which will be reported separately. Procedure Note Sherley Muniz M.D. - 02/25/2023 EXAM: CT ABDOMEN PELVIS WITH IV CONTRAST COMPARISON: 06/29/2022, 06/16/2021 FINDINGS: Partial left nephrectomy. No suspicious enhancement in the leftkidney suggest recurrent neoplasm. No solid or enhancing right renal mass.Bilateral simple renal cysts. New enhancing 0.5 cm nodule in the superior aspect of the left hepaticlobe only visible on cortical medullary phase imaging (series 3, image 17)and not definitely visualized on prior exams. No other suspicious hepaticmass. Hepatic cyst. Cholecystectomy. Splenic cyst. Minimal interval enlargement of theenhancing metastatic nodule in the head of the pancreas now measuringapproximately 1.3 x 1.5 x 1.4 cm (previously 1.4 x 1.2 x 1.2 cm). No newpancreatic masses. Negative adrenal glands. No enlarged abdominal lymph nodes. Small enhancing nodularity arising from the GE junction (series 3, image30), potentially small polyp. Diverticulosis. Moderate prostateenlargement. Osteopenia. No suspicious skeletal lesions. This examination was performed in conjunction with a CT of the chest,which will be reported separately. IMPRESSION: 1. New indeterminate enhancing hepatic lesion, low suspicion for RCCmetastasis. 2. Minimal enlargement of a pancreatic metastasis. 3. Stable partial left nephrectomy. Heriberto Kaba M.D., Ph.D. [facility] [place] PROCEDUR ES * CT Chest with IV Contrast (02/25/2023 9:26 AM TURRET PUNCH PRESS OPERATOR) Anatomical Region Laterality Modality Chest, Thoracic RST LOS, Tho racic ARZ LOS, Thoracic ARZ LOS, Thoracic FLA LOS N/A Computed Tomography, Compute d Tomography 02/25/2023 9:24 AM TURRET PUNCH PRESS OPERATOR Impressions 02/25/2023 10:50 AM TURRET PUNCH PRESS OPERATOR Stable exam including small pulmonary nodules. Narrative 02/25/2023 10:50 AM TURRET PUNCH PRESS OPERATOR EXAM: CT CHEST WITH IV CONTRAST COMPARISON: 06/29/2022 and 06/16/2021 FINDINGS: There is a 5 mm nodule in the right lower lobe (3/553). This is unchanged compared to both prior exams. Few additional tiny micronodules are also stable. No new or enlarging pulmonary nodules. No thoracic adenopathy. No pleural effusion. No parenchymal consolidation. Calcified granulomas. Bilateral apical scarring. Slight fibrosis or linear atelectasis in the bases. Stable bilateral fissural lymph nodes. Coronary, aortic valvular, and mitral annulus calcification. AV pacemaker. Slight cardiac enlargement. 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 Stable prominence of the central pulmonary arteries. Degenerative changes thoracic spine with stable loss of height of several thoracic vertebral bodies. Old rib fractures. Tiny esophageal hiatal hernia. Stable bone island right 6th rib. This examination was performed in conjunction with a CT of the abdomen, which will be reported separately. 3D maximum intensity projection (MIP) images were created on a dependent workstation as ordered by the treating provider and reviewed by the radiologist to increase sensitivity for detection of pulmonary nodules. Procedure Note Karsten Pelaez M.D. - 02/25/2023 EXAM: CT CHEST WITH IV CONTRAST COMPARISON: 06/29/2022 and 06/16/2021 FINDINGS: There is a 5 mm nodule in the right lower lobe (3/553). This is unchangedcompared to both prior exams. Few additional tiny micronodules are alsostable. No new or enlarging pulmonary nodules. No thoracic adenopathy. No pleural effusion. No parenchymalconsolidation. Calcified granulomas. Bilateral apical scarring. Slight fibrosis or linearatelectasis in the bases. Stable bilateral fissural lymph nodes. Coronary, aortic valvular, and mitral annulus calcification. AV pacemaker.Slight cardiac enlargement. Stable ectasia of the ascending aortameasuring 46 mm. Stable prominence of the central pulmonary arteries. Degenerative changes thoracic spine with stable loss of height of severalthoracic vertebral bodies. Old rib fractures. Tiny esophageal hiatalhernia. Stable bone island right 6th rib. This examination was performed in conjunction with a CT of the abdomen,which will be reported separately. 3D maximum intensity projection (MIP) images were created on a dependentworkstation as ordered by the treating provider and reviewed by theradiologist to increase sensitivity for detection of pulmonary nodules. IMPRESSION: Stable exam including small pulmonary nodules. Heriberto Kaba M.D., Ph.D. IMG CT PROCEDUR ES * Creatinine, POCT (02/25/2023 9:07 AM TURRET PUNCH PRESS OPERATOR) Pathologist [facility] Creatinine, POCT, B 0.9 0.7 - 1.4 mg/dL 02/25/2023 9:10 AM TURRET PUNCH PRESS OPERATOR PCDT Comment: ----ADDITIONAL INFORMATION---- Performed at the Point of Care Blood 02/25/2023 9:07 AM TURRET PUNCH PRESS OPERATOR 02/25/2023 9:10 AM TURRET PUNCH PRESS OPERATOR Unknown Provider LAB POCT ORDERABLES - DEVICE POC [facility] [address] [place] [address], [facility] PCDT [facility] POC [address] [place] [address] * Creatinine, POCT (02/25/2023 9:07 AM TURRET PUNCH PRESS OPERATOR) Pathologist [facility] Estimated GFR (eGFR), POCT 85 >=60 mL/min/BSA 02/25/2023 9:10 AM TURRET PUNCH PRESS OPERATOR PCDT Comment: Estimated GFR calculated using the 2020 CKD_EPI creatinine equation. Blood 02/25/2023 9:07 AM TURRET PUNCH PRESS OPERATOR 02/25/2023 9:10 AM TURRET PUNCH PRESS OPERATOR Unknown Provider LAB POCT ORDERABLES - DEVICE [facility] [address] [place] [address], [place] PCDT [facility] POC [address] [place] [address] documented in this encounter Visit Diagnoses Diagnosis Carcinoma Renal Cell Left (HCC) documented in this encounter Administered Medications Inactive Administered Medications - up to 3 most recent administrations Medication Order MAR Action Action Date Dose Rate Site iohexoL 300 mg iodine/mL solution 1-200 mL (OMNIPAQUE) 1-200 mL, intravenous, Once in imaging, contrast, Starting on Sat02/25/23 at 0858, For 1 dose, Imaging Protocol Orders, Dose per Radiant Medication Guidelines Given 02/25/2023 9:19 AM TURRET PUNCH PRESS OPERATOR 140 mL sodium chloride (PF) 0.9 % injection 1-100 mL 1-100 mL, intravenous, Once, On Sat02/25/23 at 0915, For 1 dose, Imaging Protocol Orders Given 02/25/2023 9:19 AM TURRET PUNCH PRESS OPERATOR 50 mL documented in this encounter
--- OUTSIDE RECORDS SUMMARY | 2023-05-04 12:40 | XMS_ITS | Clinical Summary ---
Author Name Unknown Organization [facility] Address [address] [place] [address] Care Team Providers Care Afternoon Nanny Name Role Phone Unavailable Primary Care Provider Unavailabl e Source Comments Patient records contain information from all sites at [facility]. For routine questions regarding patient records, call [phone] during business hours, M-F 8:00 AM - 5:00 PM Central Time. Record requests for emergency care only can be directed to [phone] at any time.[facility] Allergies No known active allergies Medications Medication Sig Dispensed Refills Start Date End Date Status triamcinolone (KENALOG) 0.1 % cream Apply topically as needed. 0 04/25/2016 Active calcium citrate/vitamin D3 (CITRACAL REGULAR ORAL) Take 1 tablet by mouth 2 (two) times a day. 0 04/25/2016 Active cyanocobalamin (VITAMIN B12) 1,000 mcg/mL injection every 30 (thirty) days. 4 04/02/2018 Active sildenafiL (VIAGRA) 50 mg tablet Take 1 tablet by mouth as directed. 0 11/02/2013 Active warfarin (COUMADIN) 5 mg tablet Take 10 mg by mouth daily. 0 05/09/2018 Active denosumab (PROLIA) 60 mg/mL syringe Inject 1 mL (60 mg total) under the skin every 6 (six) months. 1 mL 1 05/30/2018 Active Additional Information Patient not taking.Reported on 02/25/2023 BD SafetyGlide Syringe 3 mL 23 x 1 syringe See Admin Instructions. 0 06/08/2020 Active clotrimazole-betamet h dip-zinc 1-0.05-20 % combo pack 0 11/06/2021 Active denosumab (PROLIA) 60 mg/mL syringe Inject 1 mL (60 mg total) under the skin every 6 (six) months. 1 mL 1 11/07/2022 Active Additional Information Patient not taking.Reported on 02/25/2023 clotrimazole (LOTRIMIN) 1 % cream Apply 1 Application topically as needed. 0 Active calcium carbonate-vitamin D3 1,250 mg (500 mg calcium)-5 mcg (200 Unit) per tablet Take 1 tablet by mouth daily with breakfast. 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 2) 2019: Enhancing pancreatic lesion shown on imaging. 3) 08/10/2022: Pancreatic lesion continued to grow since 2019, EUS biopsy showed RCC. Genetics: Not indicated. Medical history is otherwise notable for Paget's disease of the bone, atrial fibrillation (on warfarin). Last Assessment & Plan: Today we reviewed available imaging and laboratory results pertinent to the diagnosis and plan. Pancreatic mass appears similar post-radiation. This is very gratifying and confirms our suspicion of an indolent RCC. One small hepatic enhancing lesion is likely seen due to better contrast timing. He will continue to observe and will do so with his primary care physician. Mildly enlarged prostate, will follow up with primary care physician. It was a pleasure to meet with Mr. Mckeon today. Patient does not require additional follow-up with me in Medical Oncology at [facility] at this time. If there are additional complications or concerns in the future, I would be happy to see back in clinic. 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 Carcinoma Renal Cell Left (HCC) (Primary Dx) 02/25/2023 10:45 AM PLANT TECHNICAL SPECIALIST Infusion Department of Infusion Therapy in [address] [address] Asa Enriquez M.D. Osteoporosis (Primary Dx) 02/25/2023 8:26 AM PLANT TECHNICAL SPECIALIST - 02/25/2023 11:59 PM PLANT TECHNICAL SPECIALIST Hospital Encounter Department of Radiology, [facility] in [address] [address] Heriberto Kaba M.D., Ph.D. Carcinoma Renal Cell Left (HCC) Discharge Disposition: Home or Self Care 02/25/2023 8:05 AM PLANT TECHNICAL SPECIALIST - 02/25/2023 8:25 AM PLANT TECHNICAL SPECIALIST Hospital Encounter Department of Laboratory Medicine and Pathology, [facility] in [address] [phone] Heriberto Kaba M.D., Ph.D. Carcinoma Renal Cell Left (HCC); Osteoporosis Discharge Disposition: Home or Self Care 02/20/2023 9:30 AM PLANT TECHNICAL SPECIALIST Clinical Communication Virtual Review in [address] [address] Pre-visit Intake from Last 3 Months Immunizations Name Administration Dates Next Due SARS-COV-2 (COVID-19) - PFIZ ER (Discontinued)(12 years or older) 05/27/2020,05/06/2020 Family History Medical History Relation Name Comments Diabetes Mother Naomi Age 85 Stroke Mother Naomi Age 86 Relation Name Status Comments Mother Naomi Social History Tobacco Use Types Packs/Day Years Used Date Smoking Tobacco: Former Cigarettes 0.5 20 Cigars Smokeless Tobacco: Never Tobacco Cessation:Counseling Given: Not Answered Alcohol Use Standard Drinks/Week Comments Yes 3 [...] friends, or neighbors? Twice a week 06/28/19 How often do you get togethe r with friends or relatives? Twice a week 06/27/2022 How often do you attend [facility] specialty [facility] or congregational services? 1 to 4 times per year 06/27/2022 Do you belong to any clubs o r organizations such as buddhist groups, unions, fraternal or athletic groups, or [...] and heating? Not hard at all 06/27/2022 [facility] - Occupational Stress Questionnaire Answer Date Recorded [...] place to sleep or slept in a senior care (including now)? No 06/27/2022 Nutrition Answer Date [...] Sex Assigned at Male 05/30/2018 12:39 PM PLANT TECHNICAL SPECIALIST Gender Identity Male 05/30/2018 12:39 PM PLANT TECHNICAL SPECIALIST Sexual Orientation Straight 05/30/2018 12 :39 PM PLANT TECHNICAL SPECIALIST Last Filed Vital Signs Vital Sign Reading Time Taken Comments Blood Pressure 141/71 02/25/2023 11:11 AM PLANT TECHNICAL SPECIALIST Pulse 89 02/25/2023 11:11 AM PLANT TECHNICAL SPECIALIST Temperature 37.2 ??C (99 ??F) 02/25/2023 2:51 PM PLANT TECHNICAL SPECIALIST Respiratory Rate 16 02/25/2023 2:51 PM PLANT TECHNICAL SPECIALIST Oxygen Saturation 95% 02/25/2023 2:51 PM PLANT TECHNICAL SPECIALIST Inhaled Oxygen Concentration - - Weight 105 kg (230 lb 7.9 oz) 02/25/2023 2:51 PM PLANT TECHNICAL SPECIALIST Height 183.9 cm (6' 0.4) 02/25/2023 2:51 PM PLANT TECHNICAL SPECIALIST Body Mass Index 30.91 02/25/2023 2:51 PM PLANT TECHNICAL SPECIALIST Plan of Treatment Health Maintenance Due Date Last Done Comments Depression Screening (Annual PHQ-2) 04/01/2023 Fall Risk Screen (Annual) 04/01/2023 DTaP,Tdap,and Td Vaccines (3 - Td or Tdap) 10/18/2031 10/17/2021, 12/12/2011, 04/05/2006 Pneumococcal vaccine (65+ years) Completed 02/19/20 15, 10/09/2007 Zoster Vaccines Completed 05/12/2019, 01/30, 04/19/2008 Influenza Vaccine Completed 01/03/2023, , 01/30/2021, Additional history exists COVID-19 Vaccine Completed 02/12/2023, 04/2021, 02/06/2021, Additional history exists Medical Devices Implanted Type Area Medical Records Receptionist Device Identifier Shelf Expiration Date Model / Serial / Lot Lead Medtronic [id number] Implanted:05/2008 (Quantity not on file) Cardiac Lead Other/Legacy - See Implant Description Medtronic / [id number] / Description:LEAD Medtronic P [id number] CapSureFix Novus Conversions - Default Historical Implant Device Implanted:04/2008 (Quantity not on file) Pacemaker Description:Device Status Te xt - Pacemaker. Pacemaker Medtronic [id number] Implanted:05/2008 (Quantity not on file) Pacemaker Chest Medtronic / [id number] / Description:Pacemaker Medtro marina [id number] Adapta Conversions - Default Historical Implant Device Implanted:05/2015 (Quantity not on file) Pacemaker Description:Device Status Te xt - Pacemaker. Procedures Procedure Name Priority Date/Time Associated Diagnosis Comments CT ABDOMEN PELVIS WITH IV CONTRAST RAD - Routine (most inpatients and all outpatients) 02/25/2023 9:26 AM PLANT TECHNICAL SPECIALIST Carcinoma Renal Cell Left (HCC) CT CHEST WITH IV CONTRAST RAD - Routine (most inpatients and all outpatients) 02/25/2023 9:26 AM PLANT TECHNICAL SPECIALIST Carcinoma Renal Cell Left (HCC) CREATININE, POCT, B Routine 02/25/2023 9 :07 AM PLANT TECHNICAL SPECIALIST CREATININE, POCT, B Routine 02/25/2023 9 :07 AM PLANT TECHNICAL SPECIALIST COMPREHENSIVE METABOLIC PANEL, S/P Routine 02/25/2023 8:20 AM PLANT TECHNICAL SPECIALIST Carcinoma Renal Cell Left (HCC) CBC NO CALL BACK, REFLEX T/S Routine 02/25/2023 8:20 AM PLANT TECHNICAL SPECIALIST Carcinoma Renal Cell Left (HCC) from Last 3 Months Results * CT Abdomen Pelvis with IV Contrast (02/25/2023 9:26 AM PLANT TECHNICAL SPECIALIST) Anatomical Region Laterality Modality Abdomen, Pelvis, Abdominal R ST LOS, Abdominal ARZ LOS, Abdominal FLA LOS N/A Computed Tomograp hy, Computed Tomography 02/25/2023 9:23 AM PLANT TECHNICAL SPECIALIST Impressions 02/25/2023 9:42 AM PLANT TECHNICAL SPECIALIST 1. New indeterminate enhancing hepatic lesion, low suspicion for RCC metastasis. 2. Minimal enlargement of a pancreatic metastasis. 3. Stable partial left nephrectomy. Narrative 02/25/2023 9:42 AM PLANT TECHNICAL SPECIALIST EXAM: ??CT ABDOMEN PELVIS WITH IV CONTRAST [...] partial left nephrectomy. Heriberto Kaba M.D., Ph.D. [facility] CT PROCEDUR ES * CT Chest with IV Contrast (02/25/2023 9:26 AM PLANT TECHNICAL SPECIALIST) Anatomical Region Laterality Modality Chest, Thoracic RST LOS, Tho racic ARZ LOS, Thoracic ARZ LOS, Thoracic FLA LOS N/A Computed Tomography, Compute d Tomography 02/25/2023 9:24 AM PLANT TECHNICAL SPECIALIST Impressions 02/25/2023 10:50 AM PLANT TECHNICAL SPECIALIST Stable exam including small pulmonary nodules. Narrative 02/25/2023 10:50 AM PLANT TECHNICAL SPECIALIST EXAM: CT CHEST WITH IV CONTRAST COMPARISON: [...] ES * Creatinine, POCT (02/25/2023 9:07 AM PLANT TECHNICAL SPECIALIST) Only the most recent of2 resultswithin the time period is included. Pathologist [facility] Creatinine, POCT, B 0.9 0.7 - 1.4 mg/dL 02/25/2023 9:10 AM PLANT TECHNICAL SPECIALIST PCDT Comment: ----ADDITIONAL INFORMATION---- Performed at the Point of Care Blood 02/25/2023 9:07 AM PLANT TECHNICAL SPECIALIST 02/25/2023 9:10 AM PLANT TECHNICAL SPECIALIST Unknown Provider LAB POCT ORDERABLES - DEVICE POC [facility] [address] [place] [address], [facility] PCDT [facility] POC [address] [place] [address] * (ABNORMAL) CBC no call back, reflex T/S HGB <8 (02/25/2023 8:20 AM PLANT TECHNICAL SPECIALIST) Pathologist [facility] Hemoglobin 14.6 13.2 - 16.6 g/dL 02/25/2023 9:56 AM PLANT TECHNICAL SPECIALIST DTL Hematocrit 43.1 38.3 - 48.6 % 02/25/2023 9:56 AM PLANT TECHNICAL SPECIALIST DTL Erythrocytes 4.38 4.35 - 5.65 x10(12)/L 02/25/2023 9:56 AM PLANT TECHNICAL SPECIALIST DTL MCV 98.4(H) 78.2 - 97.9 fL 02/25/2023 9:56 AM PLANT TECHNICAL SPECIALIST DTL RBC Distrib Width 13.0 11.8 - 14.5 % 02/25/2023 9:56 AM PLANT TECHNICAL SPECIALIST DTL Platelet Count 283 135 - 317 x10(9)/L 02/25/2023 9:56 AM PLANT TECHNICAL SPECIALIST DTL Leukocytes 5.0 3.4 - 9.6 x10(9)/L 02/25/2023 9:56 AM PLANT TECHNICAL SPECIALIST DTL Neutrophils 2.81 1.56 - 6.45 x10(9)/L 02/25/2023 9:56 AM PLANT TECHNICAL SPECIALIST [facility] Lymphocytes 1.49 0.95 - 3.07 x10(9)/L 02/25/2023 9:56 AM PLANT TECHNICAL SPECIALIST DTL Monocytes 0.56 0.26 - 0.81 x10(9)/L 02/25/2023 9:56 AM PLANT TECHNICAL SPECIALIST DTL Eosinophils 0.07 0.03 - 0.48 x10(9)/L 02/25/2023 9:56 AM PLANT TECHNICAL SPECIALIST DTL Basophils 0.04 0.01 - 0.08 x10(9)/L 02/25/2023 9:56 AM PLANT TECHNICAL SPECIALIST DTL Blood (Blood, Venous) 02/25/2023 8:20 AM PLANT TECHNICAL SPECIALIST 02/25/2023 8:54 AM PLANT TECHNICAL SPECIALIST Heriberto Kaba M.D., Ph.D. LAB BLOOD NON A DD-ON [facility] [address] [place] [address], [place] DTL [facility] [address] [place] [address] [facility] [address] [place] [address] * (ABNORMAL) Comprehensive Metabolic Panel (02/25/2023 8:20 AM PLANT TECHNICAL SPECIALIST) [facility] Potassium, S 4.7 3.6 - 5.2 mmol/L 02/25/2023 9:28 AM PLANT TECHNICAL SPECIALIST DTL Sodium, S 141 135 - 145 mmol/L 02/25/2023 9:28 AM PLANT TECHNICAL SPECIALIST DTL Chloride, S 104 98 - 107 mmol/L 02/25/2023 9:28 AM PLANT TECHNICAL SPECIALIST DTL Bicarbonate, S 29 22 - 29 mmol/L 02/25/2023 9:28 AM PLANT TECHNICAL SPECIALIST DTL Anion Gap 8 7 - 15 02/25/2023 9:28 AM PLANT TECHNICAL SPECIALIST DTL BUN (Blood Urea Nitrogen), S 11 8 - 24 mg/dL 02/25/2023 9:28 AM PLANT TECHNICAL SPECIALIST DTL Creatinine 0.98 0.74 - 1.35 mg/dL 02/25/2023 9:28 AM PLANT TECHNICAL SPECIALIST DTL Estimated GFR (eGFR) 77 >=60 mL/min/BS A 02/25/2023 9:28 AM PLANT TECHNICAL SPECIALIST DTL Comment: Estimated GFR calculated using the 2020 CKD_EPI creatinine equation. Calcium, Total, S 9.5 8.8 - 10.2 mg/dL 02/25/2023 9:28 AM PLANT TECHNICAL SPECIALIST DTL Glucose, S 116 70 - 140 mg/dL 02/25/2023 9:28 AM PLANT TECHNICAL SPECIALIST DTL Protein, Total, S 7.3 6.3 - 7.9 g/dL 02/25/2023 9:28 AM PLANT TECHNICAL SPECIALIST DTL Albumin, S 4.4 3.5 - 5.0 g/dL 02/25/2023 9:28 AM PLANT TECHNICAL SPECIALIST DTL Aspartate Aminotransferase (AST), S 17 8 - 48 U/L 02/25/2023 9:28 AM PLANT TECHNICAL SPECIALIST DTL Alkaline Phosphatase, S 88 40 - 129 U/L 02/25/2023 9:28 AM PLANT TECHNICAL SPECIALIST DTL Alanine Aminotransferase (ALT), S 10 7 - 55 U/L 02/25/2023 9:28 AM PLANT TECHNICAL SPECIALIST DTL Bilirubin, Total, S 1.5(H) 0.0 - 1.2 mg/dL 02/25/2023 9:28 AM PLANT TECHNICAL SPECIALIST DTL Blood (Blood, Venous) 02/25/2023 8:20 AM PLANT TECHNICAL SPECIALIST 02/25/2023 9:03 AM PLANT TECHNICAL SPECIALIST Heriberto Kaba M.D., Ph.D. LAB BLOOD ADD-O N [facility] [place] [address] [place] [address], [place] DTL [facility] [address] [place] [address] from Last 3 Months
--- OUTSIDE RECORDS SUMMARY | 2023-05-04 12:40 | XMS_ITS | Encounter Summary ---
Author Name Unknown Organization [facility] Address [address] [facility] [place] [address] Care Team Providers Care Heel Room Supervisor Name Role Phone Brien Blunt MD Primary Care Provider [phone] Encounter Details Date Type Department Care Team (Latest Contact Info) Description 09/10/2022 Travel Social History Tobacco Use Types Packs/Day Years [...] AM CDT documented as of this encounter Plan of Treatment Not on file documented as of this encounter Visit Diagnoses Not on filedocumented in this encounter Care Teams Heel Room Supervisor Relationship Specialty Start Date End Date Brien Blunt MD PCP - General Family Medicine 08/06/22 documented as of this encounter
--- OUTSIDE RECORDS SUMMARY | 2023-05-04 12:40 | XMS_ITS ---
Author Name Unknown Organization [facility] Address [address] [place] [address] Care Team Providers Care Sailboat Captain Name Role Phone Unavailable Unavailable Unavailable Surgery Details Not on file Complications Check Surgery Details section. Procedure Estimated Blood Loss Check Surgery Details section. Procedure Findings Check Surgery Details section. Procedure Specimens Taken Check Surgery Details section.
--- OUTSIDE RECORDS SUMMARY | 2023-05-04 12:40 | XMS_ITS ---
Author Name Unknown Organization [facility] Address [address] [place] [address] Care Team Providers Care Assistant Professor Of Forestry Name Role Phone Unavailable Primary Care Provider Unavailabl e Active Problems Problem Noted Date Diagnosed Date [...] follow-up with me in Medical Oncology at [facility] at this time. If there are additional complications or concerns in the future, I would be happy to see back in clinic. 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 Other Current Plans Vascular Access Patency - Peripheral Intravenous Catheter and Rapid Infusion Catheter* Plan Start Date:02/25/2023 Linked Problems Osteoporosis Treatment Medications No medications scheduled. Past Plans Radiation Treatments * No radiation treatments are documented for this patient in [facility]. Treatments may have been administered in another system.
--- OUTSIDE RECORDS SUMMARY | 2023-05-04 12:40 | XMS_ITS | Encounter Summary ---
Author Name Unknown Organization [facility] Address [address] [place] [address] Care Team Providers Care Dry End Tester Name Role Phone Brien Blunt MD Primary Care Provider [phone] Reason for Visit * Auth/Cert (Routine) Specialty Diagnoses / Procedures Referred By Robles rivas Referred To Contact Surgery Diagnoses Pancreatic mass Pancreatic mass [K86.89] Procedures [place] UPPR GI ENDOSCOPY W/US FN BX [place] EGD INTRMURAL NEEDLE ASPIR/BIOP ALTERED ANATOMY ENDOSCOPIC ULTRASOUND UPPER WITH FINE NEEDLE ASPIRATION n Periop Services [facility] [place] [address] Referral ID Status Reason Start Date Expiration Date Visits Re quested Visits Authorized [id number] 1 1 Encounter Details Date Type Department Care Team (Late st Contact Info) Description 08/10/2022 10:31 AM CDT - 08/10/2022 11:21 AM CDT Surgery [facility] [address] [id number] Helio Hurtado MD [facility] [place] [address] [facility] [place] [id number] ENDOSCOPIC ULTRASOUND UPPER WITH FINE NEEDLE ASPIRATION Surgery Details Date/Time Status Location OR Service Patient Class Case Class Case Type Trauma Case? 08/10/22 10:31 AM Posted [facility] OR N OR Gastroenterology Same Day Surgery Elective Panel 1 Procedure LRB Anes Op Region Wound Class Comments ENDOSCOPIC ULTRASOUND UPPER WITH FINE NEEDLE ASPIRATION N/A MAC Esophagus II-Clean Contamina bob Surgeon Surgeon Role Service Panel Helio Hurtado MD Primary Gastroenter ology 1 documented in this encounter Social History Tobacco Use Types Packs/Day Years Used Date Smoking Tobacco: Former Cigarettes Q uit: 1989 Smokeless Tobacco: Never Alcohol Use Standard Drinks/Week Comments Yes 2 (1 standard drink = 0.6 oz pur e alcohol) 3-4 drinks/ wk Sex and Gender Information Value Date Recorded Sex Assigned at Not on file Gender Identity Not on file Sexual Orientation Not on file documented as of this encounter Last Filed Vital Signs Vital Sign Reading Time Taken Comments Blood Pressure 127/65 08/10/2022 11:15 AM CDT Pulse 60 08/10/2022 11:15 AM CDT Temperature 36.8 ??C (98.3 ??F) 08/10/2022 1 1:10 AM CDT Simultaneous filing. User may not have seen previous data. Respiratory Rate 14 08/10/2022 11:1 5 AM CDT Oxygen Saturation 94% 08/10/2022 11: 15 AM CDT Inhaled Oxygen Concentration - - Weight 103 kg (227 lb) 08/10/2022 8:58 AM CDT Height 188 cm (6' 2) 08/10/2022 9:11 AM CDT Body Mass Index 29.15 08/10/2022 8:58 AM CDT documented in this encounter Medications at Time of Discharge Medication Sig Dispensed Refills Start Date End Date Uoxxron-Sbubsnzrz-Hjuqyo n D 600-40-500 MG-MG-UNIT TB24 0 clotrimazole [...] daily 0 documented as of this encounter H&P Notes * Helio Hurtado MD - 08/10/2022 10:08 AM CDT The History and Physical has been reviewed, the patient has been examined and no changes have occurred in the patient's condition since the H & P was completed. Helio Hurtado MD [facility] [phone] documented in this encounter Plan of Treatment Not on file documented as of this encounter Procedures Procedure Name Priority Date/Time Associated Diagnosis Comments FINE NEEDLE ASPIRATE Routine 08/10/2022 10:42 AM CDT ESOPHAGOGASTRODUODEN OSCOPY, WITH FINE NEEDLE ASPIRATION BIOPSY, WITH ENDOSCOPIC ULTRASOUND GUIDANCE 08/10/2022 10:28 AM CDT Pancreatic mass UPPER EUS Routine 08/10/2022 10:22 AM CDT LAB RESULT - HIM SCAN 07/25/2022 12:00 AM CDT EKG CARDIAC - HIM SCAN 06/07/2022 12:00 AM [employer] ECHO CARDIAC - HIM SCAN 06/01/2022 12:00 AM [employer] documented in this encounter Results * (ABNORMAL) Fine Needle Aspirate Pancreas (08/10/2022 10:42 AM CDT) Final Diagnosis Specimen A Interpretation: Positive for malignancy PANCREATIC UNCINATE MASS, ENDOSCOPIC ULTRASOUND-GUIDE D FINE-NEEDLE ASPIRATION: - METASTATIC RENAL CELL CARCINOMA, NUCLEAR GRADE 2 Adequacy: Satisfactory for evaluation 08/15/2022 11:44 AM CDT [facility] Comment Dr. Sue Brewster concurs with the diagnosis. 08/15/2022 11:44 AM CDT [facility] Clinical Information Pre-op Diagnosis: Pancreatic mass [K86.89] 08/15/2022 11:44 AM CDT [facility] Rapid Onsite Evaluation FNA Performance: Fine needle aspiration was not performed by [facility] staff. Aspirate immediate study/adequacy: I, JENN ERICKSON MD, attest that I immediately examined smears while the procedure was underway and determined or confirmed the adequacy of the specimens. It is of note that the final assessment and report may be performed and signed by a different pathologist. Onsite adequacy/interpr etation: A, Pass 1: Adequate; epithelium present KLW 1052 A, Pass 2: No immediate cytologic evaluation 08/15/2022 11:44 AM CDT [facility] Gross Description A(1). Pancreas, Pancreatic Uncinate Mass, Fine Needle Aspirate: Received are 2 fixed slides, processed for Pap stain, 2 air dried slides, processed for Diff Quik stain, and material in formalin, processed for one hematoxylin stained cell block. 08/15/2022 11:44 AM CDT [facility] Microscopic Description Cytologic smears show background hemorrhage with occasional sheets and nests of medium sized round to slightly elongated epithelial cells. The cells contain a medium sized oval nucleus, reticular nuclear chromatin and scant to moderate amounts of light basophilic cytoplasm on differential-Hector k stained smears. Cellblock sections show blood clot, few fragments of fibromuscular stroma, occasional pancreatic acini and occasional cords of a moderately cellular neoplasm composed of nests ofmedium sized cuboidal cellls with medium sized nuclei and clear to eosinophilic cytoplasm. The cells stain strongly positive for PAX8 and CD10, consistent with metastatic renal cell carcinoma. All controls stain appropriately. 08/15/2022 11:44 AM CDT [facility] Abnormal Result? Yes(A) No 08/15/2022 11:44 AM CDT [facility] Performing Labs The technical component of this testing was completed at [facility] 08/15/2022 11:44 AM CDT [facility] Fine Needle Aspiration PANCREATIC STRUCTURE / Unknown 08/10/2022 10:42 AM CDT 08/10/2022 2:53 PM CDT Helio BENAVIDEZ - EMERITA JUAREZ [facility] [address] [place] [address], [facility] [phone] [facility] Specialty Lab [address] [facility], [address] [place] [address], [place] [phone] * UPPER EUS (08/10/2022 10:22 AM CDT) Upper EUS [facility] [address], [place] [address] ___ Patient Name: Alfonso Mckeon ? Procedure Date: 08/10/2022 10:22 AM ? Date of : 1940 ?Admit Type: Outpatient Age: 82 ? Room: [facility] OR 04 Note Status: Finalized ?Attending MD: HELIO HURTADO MD, Instrument Name: EUS Linear Scope [id number] ___ Procedure: ? Upper EUS Indications: ? Suspected mass in pancreas on CT scan Providers: ? HELIO HURTADO MD Referring MD: ? Medicines: ? Monitored Anesthesia Care Complications: ? No immediate complications. ___ Procedure: ? Pre-Anesthesia Assessment: ? - Prior to the procedure, a History and Physical was ? performed, and patient medications, allergies and ? sensitivities were reviewed. The patient's tolerance ? of previous anesthesia was reviewed. ? - The risks and benefits of the procedure and the ? sedation options and risks were discussed with the ? patient. All questions were answered and informed ? consent was obtained. ? After obtaining informed consent, the endoscope was ? passed under direct vision. Throughout the procedure, ? the patient's blood pressure, pulse, and oxygen ? saturations were monitored continuously. The EUS ? linear scope was introduced through the mouth, and ? advanced to the third part of duodenum. The upper EUS ? was accomplished without difficulty. The patient ? tolerated the procedure well. ? Findings: ? ENDOSCOPIC FINDING: : ? The examined esophagus was endoscopically normal. ? The entire examined stomach was endoscopically normal. ? The examined duodenum was endoscopically normal. ? ENDOSONOGRAPHIC FINDING: : ? There was no sign of significant endosonographic abnormality in the ? ampulla. ? There was no sign of significant endosonographic abnormality in the ? common bile duct and in the common hepatic duct. The maximum diameter of ? the ducts were 6 mm. ? There was no sign of significant endosonographic abnormality in the ? visualized portion of the liver. ? An oval mass was identified in the uncinate process of the pancreas. The ? mass was hypoechoic. The mass measured 15 mm by 12 mm in maximal ? cross-sectional diameter. The endosonographic borders were well-defined. ? Significant vascularity seen along needle track, limiting possible ? approaches to this. Fine needle aspiration for cytology was performed. ? Color Doppler imaging was utilized prior to needle puncture to confirm a ? lack of significant vascular structures within the needle path. Two ? passes were made with the 22 gauge needle using a transduodenal ? approach. A stylet was used. A case checker was present and performed a ? preliminary cytologic examination. Final cytology results are pending. ? The remainder of the pancreatic parenchyma was normal. The PD was ? prominent at the head, 4 mm, 2 mm at the body, 1 mm at the tail. ? No lymphadenopathy seen. ? Moderate Sedation: ? . Impression: ?- Pancreas uncinate mass, FNA as above. Difficult ? approach 2/2 intervening blood vessels. With ? appearance, neuroendocrine tumor and metastatic kidney ? cancer are higher on differential. Recommendation: ?- Discharge patient to home. ? - Clears today, ADAT tomorrow. ? - No NSAIDs x 2 weeks. ? - Await path results. ? Helio Hurtado MD HELIO HURTADO MD 08/10/2022 11:12:38 AM I was physically present for the entire viewing portion of the exam. Signature of teaching physician Chandni/Vel HURTADO MD Number of Addenda: 0 Note Initiated On: 08/10/2022 10:22 AM Scope In: 10:36:09 AM Scope Out: 10:59:37 AM RADIOLOGY RESULTS 08/10/2022 10:2 2 AM CDT Helio Hurtado MD PROCEDURES RADIOLOGY RESULTS * LAB RESULT - HIM SCAN (07/25/2022 12:00 AM CDT) 07/25/2022 Provider Outside NON-BEAKER LAB TE STING * EKG CARDIAC - HIM SCAN (06/07/2022 12:00 AM [employer]) 06/07/2022 Provider Outside ECG ORDERABLES * ECHO CARDIAC - HIM SCAN (06/01/2022 12:00 AM [employer]) Ejection Fraction 55-60 % Anatomical Region Laterality Modality Echocardiography 06/01/2022 Narrative 06/01/2022 12:00 AM [employer] [facility] ECHO CARDIAC Provider Outside CV ECHO ORDERABLES documented in this encounter Visit Diagnoses Diagnosis Pancreatic mass Unspecified disease of pancreas documented in this encounter Administered Medications Inactive Administered Medications - up to 3 most recent administrations Medication Order MAR Action Action Date Dose Rate Site lactated ringers infusion at 100 mL/hr, Intravenous, CONTINUOUS, Pre-procedure, Starting on Sat08/10/22 at 0930, Until Sat08/10/22 at 1415 $New Bag 08/10/2022 10:28 AM CDT 50 mL/hr lidocaine (LMX4) cream Topical, EVERY 1 HOUR PRN, pain, with VAD insertion, Starting on Sat08/10/22 at 0901, Apply at least 30 minutes prior to VAD insertion in divided doses as needed for size of site for insertion. MAX Dose: 2.5 g (?? of 5 g tube) Do NOT give if patient has a history of allergy to any local anesthetic or any kathy product. Do NOT use both lidocaine intradermal/subcutaneous injection and the lidocaine cream on the same site., Pre-procedure lidocaine (LMX4) cream Topical, EVERY 1 HOUR PRN, pain, with VAD insertion, Starting on Sat08/10/22 at 0902, Apply at least 30 minutes prior to VAD insertion in divided doses as needed for size of site for insertion. MAX Dose: 2.5 g (?? of 5 g tube) Do NOT give if patient has a history of allergy to any local anesthetic or any kathy product. Do NOT use both lidocaine intradermal/subcutaneous injection and the lidocaine cream on the same site., Pre-procedure lidocaine 1 % 0.1-1 mL 0.1-1 mL, Other, EVERY 1 HOUR PRN, mild pain with VAD insertion, Starting on Sat08/10/22 at 0901, MAX dose 1 mL subcutaneous OR intradermal along the side of the vein in divided doses as needed for VAD insertion. Do NOT give if patient has a history of allergy to any local anesthetic or any kathy product. Do NOT use both lidocaine intradermal/subcutaneous injection and the lidocaine cream on the same site., Pre-procedure lidocaine 1 % 0.1-1 mL 0.1-1 mL, Other, EVERY 1 HOUR PRN, mild pain with VAD insertion, Starting on Sat08/10/22 at 0902, MAX dose 1 mL subcutaneous OR intradermal along the side of the vein in divided doses as needed for VAD insertion. Do NOT give if patient has a history of allergy to any local anesthetic or any kathy product. Do NOT use both lidocaine intradermal/subcutaneous injection and the lidocaine cream on the same site., Pre-procedure sodium chloride (PF) 0.9% PF flush 3 mL 3 mL, Intracatheter, EVERY 8 HOURS, First dose on Sat08/10/22 at 0930, to lock peripheral IV dormant line, Pre-procedure sodium chloride (PF) 0.9% PF flush 3 mL 3 mL, Intracatheter, EVERY 1 MIN PRN, line flush, other, to ensure patency or to lock dormant line, Starting on Sat08/10/22 at 0902, Pre-procedure sodium chloride (PF) 0.9% PF flush 3 mL 3 mL, Intracatheter, EVERY 8 HOURS, First dose on Sat08/10/22 at 0930, to lock peripheral IV dormant line, Pre-procedure sodium chloride (PF) 0.9% PF flush 3 mL 3 mL, Intracatheter, EVERY 1 MIN PRN, line flush, other, to ensure patency or to lock dormant line, Starting on Sat08/10/22 at 0902, Pre-procedure documented in this encounter Active and Recently Administered Medications Times are shown in CDT. Scheduled Medication Order 08/08/2022 08/09/2022 08/10/2022 sodium chloride (PF) 0.9% PF flush 3 mL 3 mL, Intracatheter, EVERY 8 HOURS, First dose on Sat08/10/22 at 0930, to lock peripheral IV dormant line, Pre-procedure 0930 (Canceled Entry - Provider: Orders Generic Provider - Comment: Automatically canceled at discontinue of medication order) sodium chloride (PF) 0.9% PF flush 3 mL 3 mL, Intracatheter, EVERY 8 HOURS, First dose on Sat08/10/22 at 0930, to lock peripheral IV dormant line, Pre-procedure 0930 (Canceled Entry - Provider: Orders Generic Provider - Comment: Automatically canceled at discontinue of medication order) Continuous Medication Order 08/08/2022 08/09/2022 08/10/2022 lactated ringers infusion at 100 mL/hr, Intravenous, CONTINUOUS, Pre-procedure, Starting on Sat08/10/22 at 0930, Until Sat08/10/22 at 1415 1028 ($New Bag - Pro vider: Wayne Perry APRN GR[employer] SKIDDER OPERATOR)1100 (Anesthesia Volume Adjustment - Provider: Wayne Perry APRN [employer]APP[employer] SKIDDER OPERATOR) PRN Medication Order 08/08/2022 08/09/2022 08/10/2022 lidocaine (LMX4) cream Topical, EVERY 1 HOUR PRN, pain, with VAD insertion, Starting on Sat08/10/22 at 0901, Apply at least 30 minutes prior to VAD insertion in divided doses as needed for size of site for insertion. MAX Dose: 2.5 g (?? of 5 g tube) Do NOT give if patient has a history of allergy to any local anesthetic or any kathy product. Do NOT use both lidocaine intradermal/subcutaneous injection and the lidocaine cream on the same site., Pre-procedure lidocaine (LMX4) cream Topical, EVERY 1 HOUR PRN, pain, with VAD insertion, Starting on Sat08/10/22 at 0902, Apply at least 30 minutes prior to VAD insertion in divided doses as needed for size of site for insertion. MAX Dose: 2.5 g (?? of 5 g tube) Do NOT give if patient has a history of allergy to any local anesthetic or any kathy product. Do NOT use both lidocaine intradermal/subcutaneous injection and the lidocaine cream on the same site., Pre-procedure lidocaine 1 % 0.1-1 mL 0.1-1 mL, Other, EVERY 1 HOUR PRN, mild pain with VAD insertion, Starting on Sat08/10/22 at 0901, MAX dose 1 mL subcutaneous OR intradermal along the side of the vein in divided doses as needed for VAD insertion. Do NOT give if patient has a history of allergy to any local anesthetic or any kathy product. Do NOT use both lidocaine intradermal/subcutaneous injection and the lidocaine cream on the same site., Pre-procedure lidocaine 1 % 0.1-1 mL 0.1-1 mL, Other, EVERY 1 HOUR PRN, mild pain with VAD insertion, Starting on Sat08/10/22 at 0902, MAX dose 1 mL subcutaneous OR intradermal along the side of the vein in divided doses as needed for VAD insertion. Do NOT give if patient has a history of allergy to any local anesthetic or any kathy product. Do NOT use both lidocaine intradermal/subcutaneous injection and the lidocaine cream on the same site., Pre-procedure sodium chloride (PF) 0.9% PF flush 3 mL 3 mL, Intracatheter, EVERY 1 MIN PRN, line flush, other, to ensure patency or to lock dormant line, Starting on Sat08/10/22 at 0902, Pre-procedure sodium chloride (PF) 0.9% PF flush 3 mL 3 mL, Intracatheter, EVERY 1 MIN PRN, line flush, other, to ensure patency or to lock dormant line, Starting on Sat08/10/22 at 0902, Pre-procedure documented in this encounter Care Teams Dry End Tester Relationship Specialty Start Date End Date Brien Blunt MD PCP - General Family Medicine 08/06/22 documented as of this encounter
--- OUTSIDE RECORDS SUMMARY | 2023-05-04 12:40 | XMS_ITS | Encounter Summary ---
Author Name Unknown Organization [facility] Address [address] [place] [address] Care Team Providers Care Elastic Yarn Twister Name Role Phone Unavailable Primary Care Provider Unavailabl e Reason for Visit * Outpatient (Routine) - Closed Specialty Diagnoses / Procedures Referred By Robles rivas Referred To Contact Oncology Heriberto Kaba M.D., Ph.D. [address] [place] [address] [facility] Referral ID Status Reason Start Date Expiration Date Visits Re quested Visits Authorized [id number] Closed 09/24/2022 09/23/2025 1 1 Encounter Details Date Type Department Care Team ([facility] st Contact Info) Description 02/25/2023 3:00 PM CLAY DRY PRESS MIXER OPERATOR Office Visit Department of Oncology in [place], [place] [address] [place] [phone] Heriberto Kaba M.D., Ph.D. [address] [place] [phone] Carcinoma Renal Cell Left (HCC) (Primary Dx) Social History Tobacco Use Types Packs/Day Years [...] often do you attend chur ch or pentecostalism services? 1 to 4 times per year 06/27/2022 Do you belong to any clubs o r organizations such as religion groups, unions, fraternal or athletic groups, or [...] and heating? Not hard at all 06/27/2022 [facility] Occup[facility] ional [facility] - Occupational Stress [...] money to buy more. Never true 06/28/19 Within the past 12 months, t he [...] place to sleep or slept in a retirement (including now)? No 06/27/2022 Nutrition Answer Date [...] Sex Assigned at Male 05/30/2018 12:39 PM CLAY DRY PRESS MIXER OPERATOR Gender Identity Male 05/30/2018 12:39 PM CLAY DRY PRESS MIXER OPERATOR Sexual Orientation Straight 05/30/2018 12 :39 PM CLAY DRY PRESS MIXER OPERATOR documented as of this encounter Last Filed Vital Signs Vital Sign Reading Time Taken Comments Blood Pressure - - Pulse - - Temperature 37.2 ??C (99 ??F) 02/25/2023 2:51 PM CLAY DRY PRESS MIXER OPERATOR Respiratory Rate 16 02/25/2023 2:51 PM CLAY DRY PRESS MIXER OPERATOR Oxygen Saturation 95% 02/25/2023 2:51 PM CLAY DRY PRESS MIXER OPERATOR Inhaled Oxygen Concentration - - Weight 105 kg (230 lb 7.9 oz) 02/25/2023 2:51 PM CLAY DRY PRESS MIXER OPERATOR Height 183.9 cm (6' 0.4) 02/25/2023 2:51 PM CLAY DRY PRESS MIXER OPERATOR Body Mass Index 30.91 02/25/2023 2:51 PM CLAY DRY PRESS MIXER OPERATOR documented in this encounter Progress Notes * Heriberto Kaba M.D., Ph.D. - 02/25/2023 3:00 PM CST DEMOGRAPHIC INFORMATION Patient Name: Alfonso Mckeon Birthdate: 1940 Sex: male Address: [address] [place] [id number] CHIEF COMPLAINT/PURPOSE OF VISIT Primary responsible: Dr. Kaba Purpose of visit: Follow-up SUBJECTIVE HISTORY OF PRESENT ILLNESS Alfonso Mckeon is a 82 y.o. male with a past medical history significant for metastatic low-grade RCC who is seen in clinic for follow-up. Patient oncologic history is as follows, updated by me to reflect interim changes: Oncology History No history exists. SYSTEMS REVIEW A complete 10 point systems review was performed and negative except as noted above in the HPI. PAST MEDICAL/SURGICAL HISTORY/SOCIAL HISTORY/FAMILY HISTORY Reviewed and available in the EMR. VITAL SIGNS Vitals: 02/25/23 1451 Resp: 16 Temp: 37.2 ??C SpO2: 95% OBJECTIVE PHYSICAL EXAMINATION General: NAD; appears stated age Psych: Alert, interactive, oriented x3 Lungs: normal work of breathing LABS/IMAGING Recent Labs 02/25/23 0820 NA 141 CL 104 BICARB 29 CALCIUM 9.5 BUN 11 CREATININE 0.98 GLUCOSE 116 ALBUMIN 4.4 HGB 14.6 HCT 43.1 WBC 5.[address] Chest with IV Contrast Result Date: 02/25/2023 Impression: Stable exam including small pulmonary nodules. CT Abdomen Pelvis with IV Contrast Result Date: 02/25/2023 Impression: 1. New indeterminate enhancing hepatic lesion, low suspicion for RCC metastasis. 2. Minimal enlargement of a pancreatic metastasis. 3. Stable partial left nephrectomy. ASSESSMENT / PLAN Alfonso Mckeon is a 82 y.o. male with a past medical history significant for metastatic low-grade RCC who is seen in clinic for follow-up. #1 Carcinoma Renal Cell Left (HCC) Overview: Oncologic history summary: 1) 2013: Left renal mass, underwent left open partial nephrectomy. 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 2) 2019: Enhancing pancreatic lesion shown on imaging. 3) 08/10/2022: Pancreatic lesion continued to grow since 2019, EUS biopsy showed RCC. Genetics: Not indicated. Medical history is otherwise notable for Paget's disease of the bone, atrial fibrillation (on warfarin). Assessment & Plan: Today we reviewed available imaging and laboratory results pertinent to the diagnosis and plan. Pancreatic mass appears similar post-radiation. This is very gratifying and confirms our suspicion of an indolent RCC. One small hepatic enhancing lesion is likely seen due to better contrast timing.He will continue to observe and will do so with his primary care physician. Mildly enlarged prostate, will follow up with primary care physician. It was a pleasure to meet with Mr. Mckeon today. Patient does not require additional follow-up with me in Medical Oncology at [facility] at this time. If there are additional complications or concerns in the future, I would be happy to see back in clinic. Other orders - Oncology office visit (clinic) General; Renal PATIENT EDUCATION Patient ready to learn, no apparent learning barriers were identified; learning preferences includelistening. Explained diagnosis and treatment plan; patient expressed understanding of the content. It was my pleasure to care for Alfonso Mckeon today. Heriberto Kaba M.D., Ph.D. DRY PRESS MIXER OPERATOR documented in this encounter Miscellaneous Notes * Assessment & Plan Note - Heriberto Kaba M.D., Ph.D. - 02/25/2023 3:19 PM CLAY DRY PRESS MIXER OPERATOR Associated Problem(s): Carcinoma Renal Cell Left (HCC) Today we reviewed available imaging and laboratory results pertinent to the diagnosis and plan. Pancreatic mass appears similar post-radiation. This is very gratifying and confirms our suspicion of an indolent RCC. One small hepatic enhancing lesion is likely seen due to better contrast timing.He will continue to observe and will do so with his primary care physician. Mildly enlarged prostate, will follow up with primary care physician. It was a pleasure to meet with Mr. Mckeon today. Patient does not require additional follow-up with me in Medical Oncology at [facility] at this time. If there are additional complications or concerns in the future, I would be happy to see back in clinic. DRY PRESS MIXER OPERATOR documented in this encounter Plan of Treatment Not on file documented as of this encounter Visit Diagnoses Diagnosis Carcinoma Renal Cell Left (HCC)- Primary documented in this encounter
--- OUTSIDE RECORDS SUMMARY | 2023-05-04 12:40 | XMS_ITS | Clinical Summary ---
Author Name Unknown Organization [place] Address [facility] [place] [address] Care Team Providers Care Oceanologist Name Role Phone Brien Blunt MD Primary Care Provider [phone] Allergies No known active allergies Medications Medication Sig Dispensed Refills Start Date End Date Status clotrimazole (LOTRIMIN) 1 % vaginal cream Place vaginally 2 times daily 0 Active Zospxjl-Iovmbkjwj-Emm jamison D 600-40-500 MG-MG-UNIT TB24 0 Active cyanocobalamin (CYANOCOBALAMIN) 1000 MCG/ML injection Inject 1 mL into the muscle every 30 days 0 Active denosumab (PROLIA) 60 MG/ML SOSY injection Inject 60 mg Subcutaneous once 0 Active sildenafil (VIAGRA) 100 MG tablet Take 100 mg by mouth daily as needed 0 Active warfarin ANTICOAGULANT (COUMADIN) 5 MG tablet Take 5 mg by mouth daily 0 Active Active Problems No known active problems Social History Tobacco Use Types Packs/Day Years Used Date Smoking Tobacco: Former Cigarettes Q uit: 1989 Smokeless Tobacco: Never Alcohol Use Standard Drinks/Week Comments Yes 2 (1 standard drink = 0.6 oz pur e alcohol) 3-4 drinks/ wk Adolescent Education Answer Date Record ed Getting School Help Needed Not on file 12/22 Sex and Gender Information Value Date Recorded Sex Assigned at Not on file Gender Identity Not on file Sexual Orientation Not on file Last Filed Vital Signs Vital Sign Reading Time Taken Comments Blood Pressure 177/85 08/10/2022 11:45 AM CDT Pulse 66 08/10/2022 11:45 AM CDT Temperature 36.8 ??C (98.3 ??F) 08/10/2022 1 1:10 AM CDT Simultaneous filing. User may not have seen previous data. Respiratory Rate 16 08/10/2022 11:3 6 AM CDT Oxygen Saturation 97% 08/10/2022 11: 45 AM CDT Inhaled Oxygen Concentration - - Weight 103 kg (227 lb) 08/10/2022 8:58 AM CDT Height 188 cm (6' 2) 08/10/2022 9:11 AM CDT Body Mass Index 29.15 08/10/2022 8:58 AM CDT Plan of Treatment Health Maintenance Due Date Last Done Comments ADVANCE CARE PLANNING 1940 ANNUAL REVIEW OF HM ORDERS 1940 RSV VACCINE ( & 60+) (1 - 1-dose 60+ series) 1999 FALL RISK ASSESSMENT 06/21/2004 COVID-19 Vaccine (2022- season) 2022 01/30/2022, 02/06/2021, 05/27/2020, Additional history exists INFLUENZA VACCINE (#1) 2022 , 01/30/2021, 01/28/2020, Additional history exists PHQ-2 (once per calendar year) 2023 MEDICARE ANNUAL WELLNESS VISIT 07/03/2023 07/02/2022, 07/14/2021 DTAP/TDAP/TD IMMUNIZATION (3 - Td or Tdap) 10/18/2031 10/17/2021, 12/12/2011, 04/05/2006 Pneumococcal Vaccine: 65+ Years Completed 02/18/2015, 10/09/2007 ZOSTER IMMUNIZATION Completed 05/12/2019, 02/16/2019, 04/19/2008 HPV IMMUNIZATION Aged Out No longer e ligible based on patient's age to complete this topic IPV IMMUNIZATION Aged Out No longer e ligible based on patient's age to complete this topic MENINGITIS IMMUNIZATION Aged Out No l onger eligible based on patient's age to complete this topic RSV MONOCLONAL ANTIBODY Aged Out No l onger eligible based on patient's age to complete this topic Care Teams Oceanologist Relationship Specialty Start Date End Date Brien Blunt MD PCP - General Family Medicine 08/06/22
--- OUTSIDE RECORDS SUMMARY | 2023-05-04 12:40 | XMS_ITS | Referral Summary ---
Author Name Unknown Organization [facility] Address [address] [place] [address] Care Team Providers Care Crusher Operator Name Role Phone Unavailable Primary Care Provider Unavailabl e Source Comments Patient records contain information from all sites at [facility]. For routine questions regarding patient records, call [phone] during business hours, M-F 8:00 AM - 5:00 PM Central Time. Record requests for emergency care only can be directed to [phone] at any time.[facility] Encounters Date Type Department Care Team Description 02/25/2023 8:26 AM TEST BORING CREW CHIEF - 02/25/2023 11:59 PM TEST BORING CREW CHIEF Hospital Encounter Department of Radiology, [facility], in [place], [place] [address] [place] [address] Heriberto Kaba M.D., Ph.D. Carcinoma Renal Cell Left (HCC) Discharge Disposition: Home or Self Care 02/25/2023 3:00 PM TEST BORING CREW CHIEF Office Visit Department of Oncology in [place], [place] [address] [place] [address] Heriberto Kaba M.D., Ph.D. Carcinoma Renal Cell Left (HCC) (Primary Dx) 02/25/2023 10:45 AM TEST BORING CREW CHIEF Infusion Department of Infusion Therapy in [place], [place] [address] [place] [phone] Asa Enriquez M.D. Osteoporosis (Primary Dx) 02/25/2023 8:05 AM TEST BORING CREW CHIEF - 02/25/2023 8:25 AM TEST BORING CREW CHIEF Hospital Encounter Department of Laboratory Medicine and Pathology, [facility], in [place], [place] [address] [place] [phone] Heriberto Kaba M.D., Ph.D. Carcinoma Renal Cell Left (HCC); Osteoporosis Discharge Disposition: Home or Self Care 02/20/2023 9:30 AM [facility] Clinical Communication Virtual Review in [place], [place] [address] [place] [address] Pre-visit Intake from Last 3 Months Allergies No known active allergies Medications Medication [...] follow-up with me in Medical Oncology at [facility] at this time. If there are additional complications or concerns in the future, I would be happy to see back in clinic. 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 1 to 4 times per year 06/27/2022 Do you belong to any clubs o r organizations such as moravian groups, unions, fraternal or athletic groups, or [...] and heating? Not hard at all 06/27/2022 [facility] Occupat ional Health - Occupational Stress [...] place to sleep or slept in a intermediate (including now)? No 06/27/2022 Nutrition Answer Date [...] Sex Assigned at Male 05/30/2018 12:39 PM TEST BORING CREW CHIEF Gender Identity Male 05/30/2018 12:39 PM TEST BORING CREW CHIEF Sexual Orientation Straight 05/30/2018 12 :39 PM TEST BORING CREW CHIEF Last Filed Vital Signs Vital Sign Reading Time Taken Comments Blood Pressure 141/71 02/25/2023 11:11 AM TEST BORING CREW CHIEF Pulse 89 02/25/2023 11:11 AM TEST BORING CREW CHIEF Temperature 37.2 ??C (99 ??F) 02/25/2023 2:51 PM TEST BORING CREW CHIEF Respiratory Rate 16 02/25/2023 2:51 PM TEST BORING CREW CHIEF Oxygen Saturation 95% 02/25/2023 2:51 PM TEST BORING CREW CHIEF Inhaled Oxygen Concentration - - Weight 105 kg (230 lb 7.9 oz) 02/25/2023 2:51 PM TEST BORING CREW CHIEF Height 183.9 cm (6' 0.4) 02/25/2023 2:51 PM TEST BORING CREW CHIEF Body Mass Index 30.91 02/25/2023 2:51 PM TEST BORING CREW CHIEF Plan of Treatment Not on file Medical Devices Implanted Type Area Sales Support Rep Device Identifier Shelf Expiration Date Model / Serial / Lot Lead Medtronic [id number] Implanted:05/2008 (Quantity not on file) Cardiac Lead Other/Legacy - See Implant Description Medtronic / [id number] / Description:LEAD Medtronic P [id number] CapSureFix Novus Conversions - Default Historical Implant Device Implanted:04/2008 (Quantity not on file) Pacemaker Description:Device Status Te xt - Pacemaker. Pacemaker Medtronic [id number] Implanted:05/2008 (Quantity not on file) Pacemaker Chest Medtronic / [id number] / Description:Pacemaker Medtro marina [id number] Adapta Conversions - Default Historical Implant Device Implanted:05/2015 (Quantity not on file) Pacemaker Description:Device Status Te xt - Pacemaker. Procedures Procedure Name Priority Date/Time Associated Diagnosis Comments CT ABDOMEN PELVIS WITH IV CONTRAST RAD - Routine (most inpatients and all outpatients) 02/25/2023 9:26 AM TEST BORING CREW CHIEF Carcinoma Renal Cell Left (HCC) CT CHEST WITH IV CONTRAST RAD - Routine (most inpatients and all outpatients) 02/25/2023 9:26 AM TEST BORING CREW CHIEF Carcinoma Renal Cell Left (HCC) CREATININE, POCT, B Routine 02/25/2023 9 :07 AM TEST BORING CREW CHIEF CREATININE, POCT, B Routine 02/25/2023 9 :07 AM TEST BORING CREW CHIEF COMPREHENSIVE METABOLIC PANEL, S/P Routine 02/25/2023 8:20 AM TEST BORING CREW CHIEF Carcinoma Renal Cell Left (HCC) CBC NO CALL BACK, REFLEX T/S Routine 02/25/2023 8:20 AM TEST BORING CREW CHIEF Carcinoma Renal Cell Left (HCC) from Last 3 Months Results * CT Abdomen Pelvis with IV Contrast (02/25/2023 9:26 AM TEST BORING CREW CHIEF) Anatomical Region Laterality Modality Abdomen, Pelvis, Abdominal R ST LOS, Abdominal ARZ LOS, Abdominal FLA LOS N/A Computed Tomograp hy, Computed Tomography 02/25/2023 9:23 AM TEST BORING CREW CHIEF Impressions 02/25/2023 9:42 AM TEST BORING CREW CHIEF 1. New indeterminate enhancing hepatic lesion, low suspicion for RCC metastasis. 2. Minimal enlargement of a pancreatic metastasis. 3. Stable partial left nephrectomy. Narrative 02/25/2023 9:42 AM TEST BORING CREW CHIEF EXAM: ??CT ABDOMEN PELVIS WITH IV CONTRAST [...] partial left nephrectomy. Heriberto Kaba M.D., Ph.D. IMG CT PROCEDUR ES * CT Chest with IV Contrast (02/25/2023 9:26 AM TEST BORING CREW CHIEF) Anatomical Region Laterality Modality Chest, Thoracic RST LOS, Tho racic ARZ LOS, Thoracic ARZ LOS, Thoracic FLA LOS N/A Computed Tomography, Compute d Tomography 02/25/2023 9:24 AM TEST BORING CREW CHIEF Impressions 02/25/2023 10:50 AM TEST BORING CREW CHIEF Stable exam including small pulmonary nodules. Narrative 02/25/2023 10:50 AM TEST BORING CREW CHIEF EXAM: CT CHEST WITH IV CONTRAST COMPARISON: [...] small pulmonary nodules. Heriberto Kaba M.D., Ph.D. G CT PROCEDUR ES * Creatinine, POCT (02/25/2023 9:07 AM TEST BORING CREW CHIEF) Only the most recent of2 resultswithin the time period is included. Creatinine, POCT, B 0.9 0.7 - 1.4 mg/dL 02/25/2023 9:10 AM TEST BORING CREW CHIEF PCDT Comment: ----ADDITIONAL INFORMATION---- Performed at the Point of Care Blood 02/25/2023 9:07 AM TEST BORING CREW CHIEF 02/25/2023 9:10 AM TEST BORING CREW CHIEF Unknown Provider LAB POCT ORDERABLES - DEVICE Performing Organization Address City/State/[facility] Co de Phone Number [facility] PERFORMING LABS [address] [place] [address], [place] PCDT [facility] POC [address] [place] [address] * (ABNORMAL) CBC no call back, reflex T/S HGB <8 (02/25/2023 8:20 AM TEST BORING CREW CHIEF) Pathologist [facility] Hemoglobin 14.6 13.2 - 16.6 g/dL 02/25/2023 9:56 AM TEST BORING CREW CHIEF DTL Hematocrit 43.1 38.3 - 48.6 % 02/25/2023 9:56 AM TEST BORING CREW CHIEF DTL Erythrocytes 4.38 4.35 - 5.65 x10(12)/L 02/25/2023 9:56 AM TEST BORING CREW CHIEF DTL MCV 98.4(H) 78.2 - 97.9 fL 02/25/2023 9:56 AM TEST BORING CREW CHIEF DTL RBC Distrib Width 13.0 11.8 - 14.5 % 02/25/2023 9:56 AM TEST BORING CREW CHIEF DTL Platelet Count 283 135 - 317 x10(9)/L 02/25/2023 9:56 AM TEST BORING CREW CHIEF DTL Leukocytes 5.0 3.4 - 9.6 x10(9)/L 02/25/2023 9:56 AM TEST BORING CREW CHIEF DTL Neutrophils 2.81 1.56 - 6.45 x10(9)/L 02/25/2023 9:56 AM TEST BORING CREW CHIEF DHPM Lymphocytes 1.49 0.95 - 3.07 x10(9)/L 02/25/2023 9:56 AM TEST BORING CREW CHIEF DTL Monocytes 0.56 0.26 - 0.81 x10(9)/L 02/25/2023 9:56 AM TEST BORING CREW CHIEF DTL Eosinophils 0.07 0.03 - 0.48 x10(9)/L 02/25/2023 9:56 AM TEST BORING CREW CHIEF DTL Basophils 0.04 0.01 - 0.08 x10(9)/L 02/25/2023 9:56 AM TEST BORING CREW CHIEF DTL Blood (Blood, Venous) 02/25/2023 8:20 AM TEST BORING CREW CHIEF 02/25/2023 8:54 AM TEST BORING CREW CHIEF Heriberto Kaba M.D., Ph.D. LAB BLOOD NON A DD-ON [facility] [address] [place] [address], [place] DTL [facility] [address] [place] [address] * (ABNORMAL) Comprehensive Metabolic Panel (02/25/2023 8:20 AM TEST BORING CREW CHIEF) Pathologist [facility] Potassium, S 4.7 3.6 - 5.2 mmol/L 02/25/2023 9:28 AM TEST BORING CREW CHIEF DTL Sodium, S 141 135 - 145 mmol/L 02/25/2023 9:28 AM TEST BORING CREW CHIEF DTL Chloride, S 104 98 - 107 mmol/L 02/25/2023 9:28 AM TEST BORING CREW CHIEF DTL Bicarbonate, S 29 22 - 29 mmol/L 02/25/2023 9:28 AM TEST BORING CREW CHIEF DTL Anion Gap 8 7 - 15 02/25/2023 9:28 AM TEST BORING CREW CHIEF DTL BUN (Blood Urea Nitrogen), S 11 8 - 24 mg/dL 02/25/2023 9:28 AM TEST BORING CREW CHIEF DTL Creatinine 0.98 0.74 - 1.35 mg/dL 02/25/2023 9:28 AM TEST BORING CREW CHIEF DTL Estimated GFR (eGFR) 77 >=60 mL/min/BS A 02/25/2023 9:28 AM TEST BORING CREW CHIEF DTL Comment: Estimated GFR calculated using the 2020 CKD_EPI creatinine equation. Calcium, Total, S 9.5 8.8 - 10.2 mg/dL 02/25/2023 9:28 AM TEST BORING CREW CHIEF DTL Glucose, S 116 70 - 140 mg/dL 02/25/2023 9:28 AM TEST BORING CREW CHIEF DTL Protein, Total, S 7.3 6.3 - 7.9 g/dL 02/25/2023 9:28 AM TEST BORING CREW CHIEF DTL Albumin, S 4.4 3.5 - 5.0 g/dL 02/25/2023 9:28 AM TEST BORING CREW CHIEF DTL Aspartate Aminotransferase (AST), S 17 8 - 48 U/L 02/25/2023 9:28 AM TEST BORING CREW CHIEF DTL Alkaline Phosphatase, S 88 40 - 129 U/L 02/25/2023 9:28 AM TEST BORING CREW CHIEF DTL Alanine Aminotransferase (ALT), S 10 7 - 55 U/L 02/25/2023 9:28 AM TEST BORING CREW CHIEF DTL Bilirubin, Total, S 1.5(H) 0.0 - 1.2 mg/dL 02/25/2023 9:28 AM TEST BORING CREW CHIEF DTL Blood (Blood, Venous) 02/25/2023 8:20 AM TEST BORING CREW CHIEF 02/25/2023 9:03 AM TEST BORING CREW CHIEF Heriberto Kaba M.D., Ph.D. LAB BLOOD ADD-O N [facility] [address] [place] [address], [place] [facility] [address] [place] [address] from Last 3 Months ([place]) [id number] [facility] [place] [phone]
--- OUTSIDE RECORDS SUMMARY | 2023-05-04 12:40 | XMS_ITS | Encounter Summary ---
Author Name Unknown Organization [facility] Address [address] [facility] [place] [address] Care Team Providers Care Brake Adjuster Name Role Phone Brien Blunt MD Primary Care Provider +1- [phone] Reason for Visit * Auth/Cert (Routine) Specialty Diagnoses / Procedures Referred By Robles rivas Referred To Contact Surgery Diagnoses Pancreatic mass Pancreatic mass [K86.89] Procedures OK UPPR GI ENDOSCOPY W/US FN BX OK EGD INTRMURAL NEEDLE ASPIR/BIOP ALTERED ANATOMY ENDOSCOPIC ULTRASOUND UPPER WITH FINE NEEDLE ASPIRATION [facility] [address] [place] [address] Referral ID Status Reason Start Date Expiration Date Visits Re quested Visits Authorized [id number] 1 1 Encounter Details Date Type Department Care Team (Late st Contact Info) Description 08/10/2022 8:55 AM CDT - 08/10/2022 12:15 PM CDT Hospital Encounter [facility] Phase II [address] [place] [phone] Helio Hurtado MD [facility] [place] [address] [place] [id number] Discharge Disposition: Home or Self Care Social [...] Sig Dispensed Refills Start Date End Date Sddpmzg-Nxjtwpbmj-Kqxpjk n D 600-40-500 MG-MG-UNIT TB24 0 clotrimazole [...] & P was completed. Helio Hurtado MD [facility] [phone] documented in this encounter Plan of Treatment [...] CARDIAC - HIM SCAN 06/07/2022 12:00 AM STEAM FLATTENER ECHO CARDIAC - HIM SCAN 06/01/2022 12:00 AM STEAM FLATTENER documented in this encounter Results * (ABNORMAL) Fine Needle Aspirate Pancreas (08/10/2022 10:42 AM CDT) Final Diagnosis Specimen A Interpretation: Positive for malignancy PANCREATIC UNCINATE MASS, ENDOSCOPIC ULTRASOUND-GUIDE D FINE-NEEDLE ASPIRATION: - METASTATIC RENAL CELL CARCINOMA, NUCLEAR GRADE 2 Adequacy: Satisfactory for evaluation 08/15/2022 11:44 AM [facility] Comment Dr. Sue Brewster concurs with the diagnosis. 08/15/2022 11:44 AM [facility] Clinical Information Pre-op Diagnosis: Pancreatic mass [K86.89] 08/15/2022 11:44 AM [facility] Rapid Onsite Evaluation FNA Performance: Fine needle aspiration was not performed by [facility] staff. Aspirate immediate study/adequacy: I, JENN [...] No immediate cytologic evaluation 08/15/2022 11:44 AM [facility] Gross Description A(1). Pancreas, Pancreatic Uncinate Mass, Fine Needle Aspirate: Received are 2 fixed slides, processed for Pap stain, 2 air dried slides, processed for Diff Quik stain, and material in formalin, processed for one hematoxylin stained cell block. 08/15/2022 11:44 AM [facility] Microscopic Description Cytologic smears show [...] controls stain appropriately. 08/15/2022 11:44 AM CDT [facility] Abnormal Result? Yes(A) No 08/15/2022 11:44 AM CDT [facility] Performing Labs The technical component of this testing was completed at [facility] and [facility] 08/15/2022 11:44 AM CDT SPECIALTY LABS Fine Needle Aspiration PANCREATIC STRUCTURE / Unknown 08/10/2022 10:42 AM CDT 08/10/2022 2:53 PM CDT Helio BENAVIDEZ - EMERITA [facility] [address] [place] [address], [facility] [phone] SPECIALTY LABS Specialty Lab [address] [facility], Room [address] [place] [phone], [facility] [phone] * UPPER EUS (08/10/2022 10:22 AM CDT) Upper EUS [facility] [address] [place] [address] ___ Patient Name: Alfonso Mckeon ? Procedure [...] ? approach. A stylet was used. A grommet man was present and performed a ? preliminary [...] of the exam. Signature of teaching physician [id number] HURTADO MD Number of Addenda: 0 Note Initiated On: 08/10/2022 10:22 AM Scope In: 10:36:09 AM Scope Out: 10:59:37 AM RADIOLOGY RESULTS 08/10/2022 10:2 2 AM CDT Helio Hurtado MD PROCEDURES RADIOLOGY RESULTS * LAB RESULT - HIM SCAN (07/25/2022 12:00 AM CDT) 07/25/2022 Provider Outside NON-BEAKER LAB TE STING * EKG CARDIAC - HIM SCAN (06/07/2022 12:00 AM STEAM FLATTENER) 06/07/2022 Provider Outside ECG ORDERABLES * ECHO CARDIAC - HIM SCAN (06/01/2022 12:00 AM STEAM FLATTENER) Ejection Fraction 55-60 % Anatomical Region Laterality Modality Echocardiography 06/01/2022 Narrative 06/01/2022 12:00 AM STEAM FLATTENER [facility] ECHO CARDIAC Provider Outside CV ECHO ORDERABLES documented in this encounter Visit Diagnoses Not on filedocumented in this encounter Administered Medications Inactive Administered [...] Bag - Pro vider: Wayne Perry APRN AQUATIC PHYSIOTHERAPIST)1100 (Anesthesia Volume Adjustment - Provider: Wayne Perry APRN AQUATIC PHYSIOTHERAPIST) PRN Medication Order 08/08/2022 08/09/2022 08/10/2022 lidocaine [...] Pre-procedure documented in this encounter Care Teams Brake Adjuster Relationship Specialty Start Date End Date Brien Blunt MD PCP - General Family Medicine 08/06/22 documented as of this encounter
--- OUTSIDE RECORDS SUMMARY | 2023-05-04 12:40 | XMS_ITS | Encounter Summary ---
Author Name Unknown Organization [facility] Address [address] [facility] [place] [address] Care Team Providers Care Dip Filler Name Role Phone Brien Blunt MD Primary Care Provider +1- [phone] Reason for Visit * Auth/Cert (Routine) Specialty Diagnoses / Procedures Referred By Robles rivas Referred To Contact Surgery Diagnoses Pancreatic mass Pancreatic mass [K86.89] Procedures WI UPPR GI ENDOSCOPY W/US FN BX WI EGD INTRMURAL NEEDLE ASPIR/BIOP ALTERED ANATOMY ENDOSCOPIC ULTRASOUND UPPER WITH FINE NEEDLE ASPIRATION [facility] [address] [place] [phone] Referral ID Status Reason Start Date Expiration Date Visits Re quested Visits Authorized [id number] 1 1 Encounter Details Date Type Department Care Team (Late st Contact Info) Description 08/10/2022 10:27 AM CDT Anesthesia Event [address] [address] Elian Alvarez MD [facility] [address] [place], [place] [id number] Anesthesia Record Procedure Summary Procedure Name Responsible Anesthesiologist Anesthesia Start Time Anesthesia Stop Time ENDOSCOPIC ULTRASOUND UPPER WITH FINE NEEDLE ASPIRATION (Esophagus) Elian Alvarez MD 08/10/22 1027 08/10/22 1111 Events Date Time Event Comment 08/10/2022 0938 1026 An Pre/OR Room Sed St 1027 An Pre/OR Sedate Stop 1027 An Start 1027 An Start Data 1027 AN REASSESS I attest that I have identified and re-evaluated the patient immediately before the induction of anesthesia and I am satisfied that the anesthetic plan is suitable for the patient's condition and procedure. The first vital signs recorded are pre- induction. Wayne SAEID Perry GUIDANCE AND CONTROL SYSTEM ENGINEER 1027 Anesthesia Ready for Procedu re 1036 MD Present 1101 MD Present 1105 an stop data 1111 An Stop Electronically signed by Margie De Leon APRN CRNA on August 10, 2022 11:11 AM Meds Name Total lidocaine 1% 5 mL propofol 10 mg/mL 30 mg propofol drip mcg/kg/min 494.4 mg lactated ringers infusion 500 mL * Agents Name NO HELIOX O2 N2O Air Exp Sevoflurane Exp Isoflurane Exp Desflurane Exp N2O O2 Delivery Device Ins Sevoflurane Ins Isoflurane Ins Desflurane O2 Auxiliary * Blood No blood administrations on file. Lines, Drains, and Airways Type Details Placement Removal Peripheral IV 08/10/22; 943; 20 G ; Anterior, Right; Lower forearm; Alcohol; None; 1 08/10/22 0944 by Josie Dewitt RN 08/10/22 1204 by Enedina Christensen RN documented in this encounter Social History Tobacco [...] on file documented as of this encounter OR Notes * Anesthesia Postprocedure Evaluation - Elian Alvarez MD - 08/10/2022 11:42 AM CDT Patient: Alfonso Mckeon Procedure: Procedure(s): ENDOSCOPIC ULTRASOUND UPPER WITH FINE NEEDLE ASPIRATION Anesthesia Type: MAC Note: Disposition: Outpatient Postop Pain Control: Uneventful Sign Out: Well controlled pain PONV: No Neuro/Psych: Uneventful Sign Out: Acceptable/Baseline neuro status Airway/Respiratory: Uneventful Sign Out: Acceptable/Baseline resp. status CV/Hemodynamics: Uneventful Sign Out: Acceptable CV status; No obvious hypovolemia; No obvious fluid overload Other NRE: NONE DID A NON-ROUTINE EVENT OCCUR? No Last vitals: Vitals Value Taken Time BP 177/85 08/10/22 1145 Temp 36.8 ??C (98.3 ??F) 08/10/22 1110 Pulse 61 08/10/22 1159 Resp 16 08/10/22 1136 SpO2 99 % 08/10/22 1159 Vitals shown include unvalidated device data. Electronically Signed By: Elian Alvarez MD August 10, 2022 2:08 PM * Anesthesia Preprocedure Evaluation - Elian Alvarez MD - 08/10/2022 9:36 AM CDT Anesthesia Pre-Procedure Evaluation Patient: Alfonso Mckeon : 1940 Procedure : Procedure(s): ENDOSCOPIC ULTRASOUND UPPER WITH FINE NEEDLE ASPIRATION Past Medical History: Diagnosis Date ??? Ascending aorta dilatation (H) ??? Asymmetrical sensorineural hearing loss ??? Atrial fibrillation (H) Atrial Flutter ??? B-complex deficiency ??? Bone lesion 10/17/2021 ??? Calculus of kidney ??? Cardiac pacemaker in situ 07/02/2022 [employer] ??? Central retinal vein occlusion ??? Enchondroma of right femur ??? Gilbert's syndrome ??? Hyperlipidemia ??? Hypogonadism in male ??? Low testosterone ??? Osteoarthritis of carpometacarpal joint of right thumb ??? Osteopenia ??? Paget's disease of bone ??? Pancreatic lesion ??? Pulmonary nodules ??? Renal cell cancer (H) Past Surgical History: Procedure Laterality Date ??? CHOLECYSTECTOMY ??? NEPHRECTOMY PARTIAL Left 2014 ??? S/P AVN ablation 08/31/2008 No Known Allergies Social History Tobacco Use ??? Smoking status: Former Types: Cigarettes Quit date: 1990 Years since quittin.3 ??? Smokeless tobacco: Never Vaping Use ??? Vaping status: Not on file Substance Use Topics ??? Alcohol use: Yes Alcohol/week: 2.0 standard drinks of alcohol Types: 2 Standard drinks or equivalent per week Comment: 3-4 drinks/ wk Wt Readings from Last 1 Encounters: 08/10/22 103 kg (227 lb) Anesthesia Evaluation Pt has had prior anesthetic. ROS/MED HX ENT/Pulmonary: - neg pulmonary ROS Neurologic: - neg neurologic ROS Cardiovascular: - neg cardiovascular ROS (+) -----pacemaker, dysrhythmias, a-fib, valvular problems/murmurs (Mild ) type: METS/Exercise Tolerance: Hematologic: - neg hematologic ROS Musculoskeletal: - neg musculoskeletal ROS GI/Hepatic: - neg GI/hepatic ROS Renal/Genitourinary: (+) renal disease, Pt does not require dialysis, Endo: - neg endo ROS Psychiatric/Substance Use: - neg psychiatric ROS Infectious Disease: - neg infectious disease ROS Malignancy: - neg malignancy ROS Other: - neg other ROS Physical Exam Airway airway exam normal Mallampati: II TM distance: > 3 FB Neck ROM: full Mouth opening: > 3 cm Respiratory Devices and Support Dental (+) Modest Abnormalities - crowns, retainers, 1 or 2 missing teeth Cardiovascular cardiovascular exam normal Rhythm and rate: regular and normal Pulmonary pulmonary exam normal breath sounds clear to auscultation OUTSIDE LABS: CBC: No results found for: WBC, HGB, HCT, PLT BMP: No results found for: NA, POTASSIUM, CHLORIDE, CO2, BUN, CR, GLC COAGS: No results found for: PTT, INR, FIBR POC: No results found for: BGM, HCG, HCGS HEPATIC: No results found for: ALBUMIN, PROTTOTAL, ALT, AST, GGT, ALKPHOS, BILITOTAL, BILIDIRECT, AMANDA OTHER: No results found for: PH, LACT, A1C, JOSEPHINE, PHOS, MAG, LIPASE, AMYLASE, TSH, T4, T3, CRP, SED Anesthesia Plan ASA Status: 3 NPO Status: NPO Appropriate Anesthesia Type: MAC. - Reason for MAC: straight local not clinically adequate, chronic cardiopulmonary disease Consents Anesthesia Plan(s) and associated risks, benefits, and realistic alternatives discussed. Questions answered and patient/claim service representative(s) expressed understanding. - Discussed: - Discussed with: Patient - Patient is DNR/DNI Status: No Postoperative Care Pain management: Multi-modal analgesia. PONV prophylaxis: Ondansetron (or other 5HT-3) Comments: Elian Alvarez MD documented in this encounter Miscellaneous Notes * Anesthesia Care Transfer Note - Margie De Leon APRN GUIDANCE AND CONTROL SYSTEM ENGINEER - 08/10/2022 11:10 AM CDT Patient: Alfonso Mckeon Procedure: Procedure(s): ENDOSCOPIC ULTRASOUND UPPER WITH FINE NEEDLE ASPIRATION Diagnosis: Pancreatic mass [K86.89] Diagnosis Additional Information: No value filed. Anesthesia Type: MAC Note: Oropharynx: oropharynx clear of all foreign objects Level of Consciousness: drowsy Oxygen Supplementation: face mask Level of Supplemental Oxygen (L/min / FiO2): 6 Independent Airway: airway patency satisfactory and stable Dentition: dentition unchanged Report to RN Given: handoff report given Patient transferred to: Phase II Comments: Patient transferred to bed. Taken to ROMA Phase II on O2 FM. In Phase II vital signs stable, SBAR report to RN per institutional policy and procedure Transfer of care. Handoff Report: Identifed the Patient, Identified the Reponsible Provider, Reviewed the pertinent medical history, Discussed the surgical course, Reviewed Intra-OP anesthesia mangement and issues during anesthesia, Set expectations for post-procedure period and Allowed opportunity for questions andacknowledgement of understanding Vitals: Vitals Value Taken Time BP 126/60 08/10/22 1110 Temp 36.6 ??C (97.8 ??F) 08/10/22 1110 Pulse 60 08/10/22 1110 Resp 18 08/10/22 1110 SpO2 97 % 08/10/22 1110 Electronically Signed By: Margie De Leon APRN CRNA August 10, 2022 11:10 AM documented in this encounter Plan of Treatment [...] 08/10/2022 10:28 AM CDT 50 mL/hr lidocaine 1 % injection Intravenous, PRN, Starting on Sat08/10/22 at 1030, Anesthesia Intra-op $Given 08/10/2022 10:30 AM CDT 5 mLs propofol (DIPRIVAN) infusion Intravenous, CONTINUOUS PRN, Starting on Sat08/10/22 at 1027, Anesthesia Intra-op $New Bag 08/10/2022 10:27 AM CDT 150 mcg/kg/min 92.7 mL/hr propofol (DIPRIVAN) injection 10 mg/mL vial Intravenous, PRN, Starting on Sat08/10/22 at 1031, Anesthesia Intra-op $Given 08/10/2022 10:31 AM CDT 30 mg documented in this encounter Care Teams Dip Filler Relationship Specialty Start Date End Date Brien Blunt MD PCP - General Family Medicine 08/06/22 documented as of this encounter
--- OUTSIDE RECORDS SUMMARY | 2023-05-04 12:40 | XMS_ITS | Referral Summary ---
Author Name Unknown Organization [facility] Address [address] [facility] [place] [address] Care Team Providers Care Farm Machinery Engine Mechanic Name Role Phone Brien Blunt MD Primary Care Provider +1- [phone] Allergies No known active allergies Medications Medication Sig Dispensed Refills Start Date End Date Status clotrimazole (LOTRIMIN) 1 % vaginal cream Place vaginally 2 times daily 0 Active Xpuqrvn-Wxprcvxpd-Ljp jamison D 600-40-500 MG-MG-UNIT TB24 0 Active [...] 08/10/2022 8:58 AM CDT Plan of Treatment Not on file Care Teams Farm Machinery Engine Mechanic Relationship Specialty Start Date End Date Brien Blunt MD PCP - General Family Medicine 08/06/22
--- OUTSIDE RECORDS SUMMARY | 2023-05-04 12:41 | XMS_ITS | Encounter Summary ---
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 [address] [address] [place] [address] [facility] Referral ID Status Reason Start Date Expiration Date Visits Re quested Visits Authorized [id number] Closed 08/20/2022 08/20/2023 1 1 Encounter Details Date Type Department Care Team (Latest Contact Info) Description 08/20/2022 Orders Only Division of Gastroenterology in [place], [place] [address] [place] [address] Jose Martinez M.D. 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 1 to 4 times per year 06/27/2022 Do you belong to any clubs o r organizations such as muslim groups, unions, fraternal or athletic groups, or [...] and heating? Not hard at all 06/27/2022 [facility] [place] of Occupat ional Health - Occupational Stress [...] place to sleep or slept in a assisted (including now)? 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) Expected: 08/20/2022 (Approximate), Expires: 11/21/2023 documented as of this encounter Results * CBC with Differential, Blood (09/24/2022 2:22 PM CDT) Hemoglobin 14.5 13.2 - 16.6 g/dL 09/24/2022 2:47 PM CDT DTL Hematocrit 43.0 38.3 - 48.6 % 09/24/2022 2:47 PM CDT DTL Erythrocytes 4.43 4.35 - 5.65 x10(12)/L 09/24/2022 2:47 PM CDT DTL MCV 97.1 78.2 - 97.9 fL 09/24/2022 2:47 PM CDT DTL RBC Distrib Width 13.1 11.8 - 14.5 % 09/24/2022 2:47 PM CDT DTL Platelet Count 289 135 - 317 x10(9)/L 09/24/2022 2:47 PM CDT DTL Leukocytes 7.0 3.4 - 9.6 x10(9)/L 09/24/2022 2:47 PM CDT DTL Neutrophils 4.42 1.56 - 6.45 x10(9)/L 09/24/2022 2:47 PM CDT DTL Lymphocytes 1.82 0.95 - 3.07 x10(9)/L 09/24/2022 2:47 PM CDT DTL Monocytes 0.66 0.26 - 0.81 x10(9)/L 09/24/2022 2:47 PM CDT DTL Eosinophils 0.05 0.03 - 0.48 x10(9)/L 09/24/2022 2:47 PM CDT DTL Basophils 0.04 0.01 - 0.08 x10(9)/L 09/24/2022 2:47 PM CDT DTL Blood (Blood, Venous) 09/24/2022 2:22 PM CDT 09/24/2022 2:35 PM CDT Jose Martinez M.D. LAB BLOOD ADD-ON [facility] [address] [place] [address], [place] DTL [facility] [address] [place] [address] * (ABNORMAL) Comprehensive Metabolic Panel (09/24/2022 2:22 PM CDT) [facility] Potassium, S 4.1 3.6 - 5.2 mmol/L 09/24/2022 3:16 PM CDT DTL Sodium, S 141 135 - 145 mmol/L 09/24/2022 3:16 PM CDT DTL Chloride, S 106 98 - 107 mmol/L 09/24/2022 3:16 PM CDT DTL Bicarbonate, S 27 22 - 29 mmol/L 09/24/2022 3:16 PM CDT DTL Anion Gap 8 7 - 15 09/24/2022 3:16 PM CDT DTL BUN (Blood Urea Nitrogen), S 15 8 - 24 mg/dL 09/24/2022 3:16 PM CDT DTL Creatinine 1.00 0.74 - 1.35 mg/dL 09/24/2022 3:16 PM CDT DTL Estimated GFR (eGFR) 75 >=60 mL/min/BS A 09/24/2022 3:16 PM CDT DTL Comment: Estimated GFR calculated using the 2020 CKD_EPI creatinine equation. Calcium, Total, S 9.0 8.8 - 10.2 mg/dL 09/24/2022 3:16 PM CDT DTL Glucose, S 163(H) 70 - 140 mg/dL 09/24/2022 3:16 PM CDT DTL Protein, Total, S 6.7 6.3 - 7.9 g/dL 09/24/2022 3:16 PM CDT DTL Albumin, S 4.1 3.5 - 5.0 g/dL 09/24/2022 3:16 PM CDT DTL Aspartate Aminotransferase (AST), S 14 8 - 48 U/L 09/24/2022 3:16 PM CDT DTL Alkaline Phosphatase, S 71 40 - 129 U/L 09/24/2022 3:16 PM CDT DTL Alanine Aminotransferase (ALT), S 11 7 - 55 U/L 09/24/2022 3:28 PM CDT DTL Bilirubin, Total, S 1.3(H) <=1.2 mg/dL 09/24/2022 3:16 PM CDT DTL Blood (Blood, Venous) 09/24/2022 2:22 PM CDT 09/24/2022 2:57 PM CDT Jose Martinez M.D. LAB BLOOD ADD-ON [facility] [address] [place] [address], 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
--- OUTSIDE RECORDS SUMMARY | 2023-05-04 12:41 | XMS_ITS | Encounter Summary ---
Author Name Unknown Organization [facility] Address [address] [place] [address] Care Team Providers Care Control Clerk Name Role Phone Unavailable Primary Care Provider Unavailabl e Encounter Details Date Type Department Care Team (Latest Contact Info) Description 09/20/2022 3:15 PM CDT Clinical Communication Virtual Review in [place], [place] [address] [place] [address] Social History Tobacco Use Types Packs/Day Years Used Date Smoking Tobacco: Former Tobacco Cessation:Counseling Given: Not Answered Humiliation, Afraid, Rape, and Kick questionnair e [...] often do you attend chur ch or adventist services? 1 to 4 times per year 06/27/2022 Do you belong to any clubs o r organizations such as gnosticist groups, unions, fraternal or athletic groups, or [...] and heating? Not hard at all 06/27/2022 [facility] [place] of Occupat ional Health - Occupational Stress [...] place to sleep or slept in a snf (including now)? No 06/27/2022 Nutrition Answer Date [...] Sex Assigned at Male 05/30/2018 12:39 PM BUS OR TRUCK GARAGE MECHANIC Gender Identity Male 05/30/2018 12:39 PM BUS OR TRUCK GARAGE MECHANIC Sexual Orientation Straight 05/30/2018 12 :39 PM BUS OR TRUCK GARAGE MECHANIC documented as of this encounter Plan of Treatment Not on file documented as of this encounter Visit Diagnoses Not on filedocumented in this encounter
--- OUTSIDE RECORDS SUMMARY | 2023-05-04 12:41 | XMS_ITS | Encounter Summary ---
Author Name Unknown Organization [facility] Address [address] [place] [address] Care Team Providers Care Dry Cans Operator Name Role Phone Unavailable Primary Care Provider Unavailabl e Encounter Details Date Type Department Care Team (Latest Contact Info) Description 08/15/2022 Clinical Communication Division of Gastroenterology in [place], [place] [address] [place] [address] Jose Martinez M.D. [address] [address] [place] [phone] Social History Tobacco Use Types Packs/Day Years [...] often do you attend chur ch or baptism services? 1 to 4 times per year 06/27/2022 Do you belong to any clubs o r organizations such as judaism groups, unions, fraternal or athletic groups, or [...] and heating? Not hard at all 06/27/2022 [facility] [place] of Occupat ional Health - Occupational Stress [...] place to sleep or slept in a fci (including now)? No 06/27/2022 Nutrition Answer Date [...] Sex Assigned at Male 05/30/2018 12:39 PM SYRUP BLENDER Gender Identity Male 05/30/2018 12:39 PM SYRUP BLENDER Sexual Orientation Straight 05/30/2018 12 :39 PM SYRUP BLENDER documented as of this encounter Plan of Treatment Not on file documented as of this encounter Visit Diagnoses Not on filedocumented in this encounter
--- OUTSIDE RECORDS SUMMARY | 2023-05-04 12:41 | XMS_ITS | Encounter Summary ---
Author Name Unknown Organization [facility] Address [address] [place] [address] Care Team Providers Care Server Support Technician Name Role Phone Unavailable Primary Care Provider Unavailabl e Encounter Details Date Type Department Care Team (Latest Contact Info) Description 09/24/2022 2:08 PM CDT - 09/24/2022 11:59 PM CDT Hospital Encounter Department of Laboratory Medicine and Pathology, [facility] in [place], [place] [address] [place] [address] Jose Martinez M.D. 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 1 to 4 times per year [...] and heating? Not hard at all 06/27/2022 [facility] of Occupat ional Health - Occupational Stress [...] place to sleep or slept in a fdc (including now)? No 06/27/2022 Nutrition Answer Date [...] Sex Assigned at Male 05/30/2018 12:39 PM DRY CELL ASSEMBLY SUPERVISOR Gender Identity Male 05/30/2018 12:39 PM DRY CELL ASSEMBLY SUPERVISOR Sexual Orientation Straight 05/30/2018 12 :39 PM DRY CELL ASSEMBLY SUPERVISOR documented as of this encounter Medications at Time of Discharge Medication Sig Dispensed Refills Start Date End Date BD SafetyGlide Syringe 3 mL 23 x 1 syringe See Admin Instructions. 0 06/08/2020 calcium citrate/vitamin D3 (CITRACAL REGULAR ORAL) Take 1 tablet by mouth 2 (two) times a day. 0 04/25/2016 clotrimazole-betameth dip-zinc 1-0.05-20 % combo pack 0 11/06/2021 cyanocobalamin (VITAMIN B12) 1,000 mcg/mL injection every 30 (thirty) days. 4 04/02/2018 denosumab (PROLIA) 60 mg/mL syringe Inject 1 mL (60 mg total) under the skin every 6 (six) months. 1 mL 1 05/30/2018 sildenafiL (VIAGRA) 50 mg tablet Take 1 tablet by mouth as directed. 0 11/02/2013 triamcinolone (KENALOG) 0.1 % cream Apply topically as needed. 0 04/25/2016 warfarin (COUMADIN) 5 mg tablet Take 10 mg by mouth daily. 0 05/09/2018 fluticasone (FLONASE) 50 mcg/actuation nasal spray Administer into affected nostril(s) 2 (two) times a day. 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 LAB BLOOD ADD-ON [facility] [address] [address], [facility] [address] [address] * (ABNORMAL) Comprehensive Metabolic Panel (09/24/2022 2:22 PM CDT) Pathologist [facility] Potassium, S 4.1 3.6 - 5.2 mmol/L [...] CDT Jose Martinez M.D. 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
--- OUTSIDE RECORDS SUMMARY | 2023-05-04 12:41 | XMS_ITS | Encounter Summary ---
Author Name Unknown Organization [facility] Address [address] [place] [address] Care Team Providers Care Wood Drilling Machine Operator Name Role Phone Unavailable Primary Care Provider Unavailabl e Reason for Visit * Reason Onset Date Comments Appointment 08/20/2022 Encounter Details Date Type Department Care Team (Late st Contact Info) Description 08/20/2022 Clinical Communication Department of Oncology in [place], [place] [address] [place] [address] Isaias Odonnell M.D. [address] [place] [address] Appointment Social History Tobacco Use Types Packs/Day Years [...] often do you attend chur ch or yarsanism services? 1 to 4 times per year 06/27/2022 Do you belong to any clubs o r organizations such as rastafarian groups, unions, fraternal or athletic groups, or [...] and heating? Not hard at all 06/27/2022 [facility] of Occupat ional Health - Occupational Stress [...] place to sleep or slept in a prison (including now)? No 06/27/2022 Nutrition Answer Date [...] Sex Assigned at Male 05/30/2018 12:39 PM SHOP ESTIMATOR Gender Identity Male 05/30/2018 12:39 PM SHOP ESTIMATOR Sexual Orientation Straight 05/30/2018 12 :39 PM SHOP ESTIMATOR documented as of this encounter Plan of Treatment Not on file documented as of this encounter Visit Diagnoses Not on filedocumented in this encounter
--- OUTSIDE RECORDS SUMMARY | 2023-05-04 12:41 | XMS_ITS | Encounter Summary ---
Author Name Unknown Organization [facility] Address [address] [place] [address] Care Team Providers Care Retort Feeder Ground Bone Name Role Phone Unavailable Primary Care Provider Unavailabl e Encounter Details Date Type Department Care Team (Late st Contact Info) Description 11/12/2022 Orders Only Division of Endocrinology in [place], [place] [address] [place] [address] Asa Enriquez M.D. [address] [place] [address] Osteoporosis (Primary Dx) Social History Tobacco Use Types [...] often do you attend chur ch or jehovah's witness services? 1 to 4 times per year 06/27/2022 Do you belong to any clubs o r organizations such as religious groups, unions, fraternal or athletic groups, or [...] and heating? Not hard at all 06/27/2022 [facility] of Occupat ional Health - Occupational Stress [...] place to sleep or slept in a long term (including now)? No 06/27/2022 Nutrition Answer Date [...] Sex Assigned at Male 05/30/2018 12:39 PM LION TRAINER Gender Identity Male 05/30/2018 12:39 PM LION TRAINER Sexual Orientation Straight 05/30/2018 12 :39 PM LION TRAINER documented as of this encounter Plan of Treatment Not on file documented as of this encounter Visit Diagnoses Diagnosis Osteoporosis- Primary documented in this encounter
--- OUTSIDE RECORDS SUMMARY | 2023-05-04 12:41 | XMS_ITS | Encounter Summary ---
Author Name Unknown Organization [facility] Address [address] [place] [address] Care Team Providers Care Packaging Tech Name Role Phone Unavailable Primary Care Provider Unavailabl e Encounter Details Date Type Department Care Team (Late st Contact Info) Description 11/07/2022 Orders Only Division of Endocrinology in [place], [place] [address] [place] [address] Asa Enriquez M.D. [address] [place] [address] Social History Tobacco Use Types Packs/Day Years [...] often do you attend chur ch or christian services? 1 to 4 times per year 06/27/2022 Do you belong to any clubs o r organizations such as episcopalian groups, unions, fraternal or athletic groups, or [...] and heating? Not hard at all 06/27/2022 [facility] of Occupat ional Health - [...] place to sleep or slept in a care home (including now)? 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
--- OUTSIDE RECORDS SUMMARY | 2023-05-04 12:41 | XMS_ITS | Encounter Summary ---
Author Name Unknown Organization [facility] Address [address] [place] [address] Care Team Providers Care Hay Buckler Name Role Phone Unavailable Primary Care Provider Unavailabl e Encounter Details Date Type Department Care Team (Latest Contact Info) Description 09/24/2022 12:40 PM CDT Ancillary Procedure Department of Radiology in [place], [place] [address] [place] [address] Heriberto Kaba M.D., Ph.D. [address] [place] [phone] Carcinoma Renal Cell Left (HCC) Social History Tobacco Use Types Packs/Day Years [...] often do you attend chur ch or congregation services? 1 to 4 times per year 06/27/2022 Do you belong to any clubs o r organizations such as islam groups, unions, fraternal or athletic groups, or [...] and heating? Not hard at all 06/27/2022 [facility] of Occupat ional Health - [...] place to sleep or slept in a correction (including now)? No 06/27/2022 Nutrition Answer Date [...] Sex Assigned at Male 05/30/2018 12:39 PM CONSULTING SOLUTION DIRECTOR Gender Identity Male 05/30/2018 12:39 PM CONSULTING SOLUTION DIRECTOR Sexual Orientation Straight 05/30/2018 12 :39 PM CONSULTING SOLUTION DIRECTOR documented as of this encounter Plan of Treatment Not on file documented as of this encounter Procedures Procedure Name Priority Date/Time Associated Diagnosis Comments INTERPRETATION OF OUTSIDE CT ABDOMEN AND OR PELVIS RAD - Routine (most inpatients and all outpatients) 09/24/2022 12:46 PM CDT Carcinoma Renal Cell Left (HCC) documented in this encounter Results * Interpretation of Outside CT Abdomen and or Pelvis (09/24/2022 12:46 PM CDT) Anatomical Region Laterality Modality Abdomen, Pelvis, Abdominal R ST LOS, Abdominal ARZ LOS, Abdominal FLA LOS, Other N/A Computed Tomography 09/25/2022 9:46 AM CDT Impressions 09/25/2022 9:58 AM CDT Similar enhancing pancreatic nodule. No other suspicious enhancing nodularity. Narrative 09/25/2022 9:58 AM CDT EXAM: ??INTERPRETATION OF OUTSIDE CT ABDOMEN AND OR PELVIS Interpretation of outside CT abdomen/pelvis with intravenous contrast dated 09/10/2022. COMPARISON: ??CT abdomen/pelvis 06/29/2022. FINDINGS: ?? This examination was performed in conjunction with a CT of the chest, which has not been formally interpreted here. Hepatic and splenic hypoattenuating lesions have not significantly changed and likely represent cysts or hemangiomas. Cholecystectomy. Negative adrenal glands. 2.3 x 1.3 cm nodule along the pancreatic head, similar (2/179). Nondilated main pancreatic duct. Similar right renal pelvic dilation. Left renal scarring, likely postprocedural. Hypoattenuating renal lesions are similar. Prostatomegaly. Colonic diverticulosis. Normal caliber small bowel and colon. The celiac, superior mesenteric, and inferior mesenteric arteries are patent. The splenic vein is patent. Apparent filling defect in the vein and portal vein (5/64). No lymphadenopathy. Left femoral Paget's disease. Procedure Note Lucho Amado M.D., M.S. - 09/25/2022 EXAM: INTERPRETATION OF OUTSIDE CT ABDOMEN AND OR PELVIS Interpretation of outside CT abdomen/pelvis with intravenous contrastdated 09/10/2022. COMPARISON: CT abdomen/pelvis 06/29/2022. FINDINGS: This examination was performed in conjunction with a CT of the chest,which has not been formally interpreted here. Hepatic and splenic hypoattenuating lesions have not significantly changedand likely represent cysts or hemangiomas. Cholecystectomy. Negative adrenal glands. 2.3 x 1.3cm nodule along the pancreatic head, similar (2/179). Nondilated main pancreatic duct. Similarright renal pelvic dilation. Left renal scarring, likely postprocedural. Hypoattenuatingrenal lesions are similar. Prostatomegaly. Colonic diverticulosis. Normal caliber small bowel and colon. The celiac, superior mesenteric, and inferior mesenteric arteries arepatent. The splenic vein is patent. Apparent filling defect in the vein and portal vein (5/64). Nolymphadenopathy. Left femoral Paget's disease. IMPRESSION: Similar enhancing pancreatic nodule. No other suspicious enhancingnodularity. Heriberto Kaba M.D., Ph.D. G CT PROCEDUR ES documented in this encounter Visit Diagnoses Diagnosis Carcinoma Renal Cell Left (HCC) documented in this encounter
--- OUTSIDE RECORDS SUMMARY | 2023-05-04 12:41 | XMS_ITS | Encounter Summary ---
Author Name Unknown Organization [facility] Address [address] [place] [address] Care Team Providers Care Ferryboat Operator Helper Name Role Phone Unavailable Primary Care Provider Unavailabl e Reason for Visit * Episode Based Medications (Routine) - Closed Specialty Diagnoses / Procedures Referred By Robles rivas Referred To Contact Diagnoses Osteoporosis Asa Enriquez M.D. [address] [place] [address] [address] [place] [address] [place] [phone] Referral ID Status Reason Start Date Expiration Date Visits Re quested Visits Authorized [id number] Closed 12/12/2022 12/11/2024 99 99 Encounter Details Date Type Department Care Team (Latest Contact Info) Description 02/25/2023 8:05 AM STEERSMAN - 02/25/2023 8:25 AM [facility] Hospital Encounter Department of Laboratory Medicine and Pathology, [facility] in [place], [place] [address] [place] [phone] Heriberto Kaba M.D., Ph.D. [address] [place] [phone] Carcinoma Renal Cell Left (HCC); Osteoporosis Discharge Disposition: Home or Self Care Social [...] often do you attend chur ch or yazdanism services? 1 to 4 times per year 06/27/2022 Do you belong to any clubs o r organizations such as mu-ism groups, unions, fraternal or athletic groups, or [...] and heating? Not hard at all 06/27/2022 [facility] of Occupat ional Health - Occupational Stress [...] place to sleep or slept in a custodial (including now)? No 06/27/2022 Nutrition Answer Date [...] Sex Assigned at Male 05/30/2018 12:39 PM STEERSMAN Gender Identity Male 05/30/2018 12:39 PM STEERSMAN Sexual Orientation Straight 05/30/2018 12 :39 PM STEERSMAN documented as of this encounter Medications at [...] Name Priority Date/Time Associated Diagnosis Comments CBC NO CALL BACK, REFLEX T/S Routine 02/25/2023 8:20 AM STEERSMAN Carcinoma Renal Cell Left (HCC) COMPREHENSIVE METABOLIC PANEL, S/P Routine 02/25/2023 8:20 AM STEERSMAN Carcinoma Renal Cell Left (HCC) documented in this encounter Results * (ABNORMAL) Comprehensive Metabolic Panel (02/25/2023 8:20 AM STEERSMAN) Pathologist [facility] Potassium, S 4.7 3.6 - 5.2 mmol/L 02/25/2023 9:28 AM STEERSMAN DTL Sodium, S 141 135 - 145 mmol/L 02/25/2023 9:28 AM STEERSMAN DTL Chloride, S 104 98 - 107 mmol/L 02/25/2023 9:28 AM [facility] DTL Bicarbonate, S 29 22 - 29 mmol/L 02/25/2023 9:28 AM [facility]ERS[facility] DTL Anion Gap 8 7 - 15 02/25/2023 9:28 AM [facility] DTL BUN (Blood Urea Nitrogen), S 11 8 - 24 mg/dL 02/25/2023 9:28 AM STEERSMAN DTL Creatinine 0.98 0.74 - 1.35 mg/dL 02/25/2023 9:28 AM [facility] DTL Estimated GFR (eGFR) 77 >=60 mL/min/BS A 02/25/2023 9:28 AM STEERSMAN DTL Comment: Estimated GFR calculated using the 2020 CKD_EPI creatinine equation. Calcium, Total, S 9.5 8.8 - 10.2 mg/dL 02/25/2023 9:28 AM STEERSMAN DTL Glucose, S 116 70 - 140 mg/dL 02/25/2023 9:28 AM STEERSMAN DTL Protein, Total, S 7.3 6.3 - 7.9 g/dL 02/25/2023 9:28 AM STEERSMAN DTL Albumin, S 4.4 3.5 - 5.0 g/dL 02/25/2023 9:28 AM [facility]ERSMAN DTL Aspartate Aminotransferase (AST), S 17 8 - 48 U/L 02/25/2023 9:28 AM STEERSMAN DTL Alkaline Phosphatase, S 88 40 - 129 U/L 02/25/2023 9:28 AM STEERSMAN DTL Alanine Aminotransferase (ALT), S 10 7 - 55 U/L 02/25/2023 9:28 AM STEERSMAN DTL Bilirubin, Total, S 1.5(H) 0.0 - 1.2 mg/dL 02/25/2023 9:28 AM STEERSMAN DTL Blood (Blood, Venous) 02/25/2023 8:20 AM STEERSMAN 02/25/2023 9:03 AM STEERSMAN Heriberto Kaba M.D., Ph.D. LAB BLOOD ADD-O N [facility] [address] [place] [address], [facility] DTL [facility] [address] [place] [address] * (ABNORMAL) CBC no call back, reflex T/S HGB <8 (02/25/2023 8:20 AM STEERSMAN) Hemoglobin 14.6 13.2 - 16.6 g/dL 02/25/2023 9:56 AM STEERSMAN DTL Hematocrit 43.1 38.3 - 48.6 % 02/25/2023 9:56 AM [facility] DTL Erythrocytes 4.38 4.35 - 5.65 x10(12)/L 02/25/2023 9:56 AM STEERSMAN DTL MCV 98.4(H) 78.2 - 97.9 fL 02/25/2023 9:56 AM STEERSMAN DTL RBC Distrib Width 13.0 11.8 - 14.5 % 02/25/2023 9:56 AM STEERSMAN DTL Platelet Count 283 135 - 317 x10(9)/L 02/25/2023 9:56 AM STEERSMAN DTL Leukocytes 5.0 3.4 - 9.6 x10(9)/L 02/25/2023 9:56 AM STEERSMAN DTL Neutrophils 2.81 1.56 - 6.45 x10(9)/L 02/25/2023 9:56 AM STEERSMAN [facility] Lymphocytes 1.49 0.95 - 3.07 x10(9)/L 02/25/2023 9:56 AM STEERSMAN DTL Monocytes 0.56 0.26 - 0.81 x10(9)/L 02/25/2023 9:56 AM STEERSMAN DTL Eosinophils 0.07 0.03 - 0.48 x10(9)/L 02/25/2023 9:56 AM STEERSMAN DTL Basophils 0.04 0.01 - 0.08 x10(9)/L 02/25/2023 9:56 AM STEERSMAN DTL Blood (Blood, Venous) 02/25/2023 8:20 AM STEERSMAN 02/25/2023 8:54 AM STEERSMAN Heriberto Kaba M.D., Ph.D. LAB BLOOD NON A DD-ON [facility] [place] [address] [place] [address], [facility] DTL [facility] [address] [place] [address] [facility] [address] [place] [address] documented in this encounter Visit Diagnoses Diagnosis Carcinoma Renal Cell Left (HCC) Osteoporosis documented in this encounter
--- OUTSIDE RECORDS SUMMARY | 2023-05-04 12:41 | XMS_ITS | Encounter Summary ---
Author Name Unknown Organization [facility] Address [address] [place] [address] Care Team Providers Care Bench Worker Name Role Phone Unavailable Primary Care Provider Unavailabl e Encounter Details Date Type Department Care Team (Late st Contact Info) Description 08/15/2022 Documentation Division of Gastroenterology in [place], [place] [address] [place] [address] Jose Martinez M.D. [address] [address] [place] [phone] Social History Tobacco Use Types Packs/Day Years [...] often do you attend chur ch or samaritan services? 1 to 4 times per year 06/27/2022 Do you belong to any clubs o r organizations such as holiness groups, unions, fraternal or athletic groups, or [...] and heating? Not hard at all 06/27/2022 [facility] of Occupat ional Health - Occupational Stress [...] place to sleep or slept in a mcc (including now)? No 06/27/2022 Nutrition Answer Date [...] Sex Assigned at Male 05/30/2018 12:39 PM COMPUTER DESIGNER Gender Identity Male 05/30/2018 12:39 PM COMPUTER DESIGNER Sexual Orientation Straight 05/30/2018 12 :39 PM COMPUTER DESIGNER documented as of this encounter Progress Notes * Jose Martinez M.D. - 08/15/2022 4:11 PM CDT Spoke with patient's local sales and marketing director Dr. Guero Dunn from [facility] over the phone. 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 They have referred locally to Oncology for further treatment options for RCC therefore we will cancer any further diagnostic testing here at [facility]. If patient has further questions about RCC will refer to medical Oncology here at [facility]. Addendum 08/21/2022 We requested documentation of RCC biopsy results of local EUS. They will discuss with Oncology about potential options. In discussion with advanced endoscopy RFA ablation would be extremely challenging in this individual. This could be attempted if Oncology would like to pursue consideration of local regional therapy though there is a high chance that this will be unsuccessful. Alcohol ablation could also be attempted as well. There will be a discussion about potential options of treatment of this metastatic RCC with the patient during oncology appointment scheduled in the middle August. Will communicate this to the patient and his family members via the portal. My staff attempted to reach out to the patient's daughter but was unsuccessful therefore left message with call back number if they have any questions otherwise will communicate appointment time and date as well in my follow-up message later today. documented in this encounter Plan of Treatment Not on file documented as of this encounter Visit Diagnoses Not on filedocumented in this encounter
--- OUTSIDE RECORDS SUMMARY | 2023-05-04 12:41 | XMS_ITS | Encounter Summary ---
Author Name Unknown Organization [facility] Address [address] [place] [address] Care Team Providers Care Ukrainian Folk Arts Instructor Name Role Phone Unavailable Primary Care Provider Unavailabl e Reason for Visit * Reason Onset Date Comments outside images 12/13/2022 Encounter Details Date Type Department Care Team (Late st Contact Info) Description 12/13/2022 Clinical Communication Department of Oncology in [place], [place] [address] [place] [address] Susie Silva, RLenkaNLenka [address] [place] [phone] outside images Social History Tobacco Use Types Packs/Day Years [...] often do you attend chur ch or druze services? 1 to 4 times per year 06/27/2022 Do you belong to any clubs o r organizations such as oriental orthodox groups, unions, fraternal or athletic groups, or [...] and heating? Not hard at all 06/27/2022 [facility] of Occupat ional Health - Occupational [...] Sex Assigned at Male 05/30/2018 12:39 PM SPECIAL INSPECTOR Gender Identity Male 05/30/2018 12:39 PM SPECIAL INSPECTOR Sexual Orientation Straight 05/30/2018 12 :39 PM SPECIAL INSPECTOR documented as of this encounter Plan of Treatment Not on file documented as of this encounter Visit Diagnoses Not on filedocumented in this encounter
--- OUTSIDE RECORDS SUMMARY | 2023-05-04 12:41 | XMS_ITS | Encounter Summary ---
Author Name Unknown Organization [facility] Address [address] [place] [address] Care Team Providers Care Bench Worker Binding Name Role Phone Unavailable Primary Care Provider Unavailabl e Reason for Visit * Reason Onset Date Comments Appointment 11/02/2022 Encounter Details Date Type Department Care Team (Late st Contact Info) Description 11/02/2022 Clinical Communication Department of Oncology in [place], [place] [address] [place] [address] Heriberto Kaba M.D., Ph.D. [address] [place] [phone] Appointment Social History Tobacco Use Types Packs/Day [...] often do you attend chur ch or jew services? 1 to 4 times per year 06/27/2022 Do you belong to any clubs o r organizations such as christian groups, unions, fraternal or athletic groups, or [...] and heating? Not hard at all 06/27/2022 [facility] of Occupat ional Health - Occupational [...] Sex Assigned at Male 05/30/2018 12:39 PM MEDICAL OFFICER PSYCHIATRY Gender Identity Male 05/30/2018 12:39 PM MEDICAL OFFICER PSYCHIATRY Sexual Orientation Straight 05/30/2018 12 :39 PM MEDICAL OFFICER PSYCHIATRY documented as of this encounter Plan of Treatment Not on file documented as of this encounter Visit Diagnoses Not on filedocumented in this encounter
--- OUTSIDE RECORDS SUMMARY | 2023-05-04 12:41 | XMS_ITS | Encounter Summary ---
Author Name Unknown Organization [facility] Address [address] [place] [address] Care Team Providers Care Wheel Adjuster Name Role Phone Unavailable Primary Care Provider Unavailabl e Reason for Visit * Reason Comments Outpatient Infusion Reclast * Episode Based Medications (Routine) - Closed Specialty Diagnoses / Procedures Referred By Robles t Referred To Contact Diagnoses Osteoporosis Asa Enriquez M.D. 200 [place] [address] [address] [place] [address] [place] [phone] Referral ID Status Reason Start Date Expiration Date Visits Re quested Visits Authorized [id number] Closed 12/12/2022 12/11/2024 99 99 Encounter Details Date Type Department Care Team (Late st Contact Info) Description 02/25/2023 10:45 AM ANALYTICS CONSULTANT Infusion Department of Infusion Therapy in [place], [place] [address] [place] [phone] Asa Enriquez M.D. [address] [place] [phone] Osteoporosis (Primary Dx) Social History Tobacco Use [...] week 06/27/2022 How often do you attend [facility] or church services? 1 to 4 times per year 06/27/2022 Do you belong to any clubs o r organizations such as restorationism groups, unions, fraternal or athletic groups, or [...] and heating? Not hard at all 06/27/2022 [facility] [place] of Occupat ional Health - Occupational Stress [...] Sex Assigned at Male 05/30/2018 12:39 PM ANALYTICS CONSULTANT Gender Identity Male 05/30/2018 12:39 PM ANALYTICS CONSULTANT Sexual Orientation Straight 05/30/2018 12 :39 PM ANALYTICS CONSULTANT documented as of this encounter Last Filed Vital Signs Vital Sign Reading Time Taken Comments Blood Pressure 141/71 02/25/2023 11:11 AM ANALYTICS CONSULTANT Pulse 89 02/25/2023 11:11 AM ANALYTICS CONSULTANT Temperature 36.5 ??C (97.7 ??F) 02/25/2023 11:[address] Respiratory Rate 16 02/25/2023 11:11 AM ANALYTICS CONSULTANT Oxygen Saturation - - Inhaled Oxygen Concentration - - Weight - - Height - - Body Mass Index - - documented in this encounter Plan of Treatment Not on file documented as of this encounter Visit Diagnoses Diagnosis Osteoporosis- Primary documented in this encounter Administered Medications Inactive Administered Medications - up to 3 most recent administrations Medication Order MAR Action Action Date Dose Rate Site NaCl 0.9% infusion 10-250 mL/hr, intravenous, As needed, Post Medications (Hazardous/Low Fluid Volume), Starting on Sat02/25/23 at 1100, Infuse at the same rate as the medication until tubing cleared of medication, then discard. New Bag 02/25/2023 11:39 AM ANALYTICS CONSULTANT 400 mL/hr 400 mL/hr sodium chloride 0.9 % injection 3 mL 3 mL, intra-catheter, As needed, line care, Starting on Sat02/25/23 at 1100, Prior to and following infusion and between multiple consecutive infusions. Given 02/25/2023 11:18 AM ANALYTICS CONSULTANT 3 mL zoledronic gjzj-uoljvrtu-hbxzn IVPB 5 mg (RECLAST) 5 mg, intravenous, at 400 mL/hr, Administer over 15 Minutes, Once, On Sat02/25/23 at 1115, For 1 dose, Notify Provider for creatinine clearance less than 35mL/min as treatment is not recommended. Monitor serum creatinine before each dose, Restriction Criteria (Pharmacy will review and approve if criteria met): Osteoporosis patient who has failed or cannot tolerate one of the oral bisphosphonates, alendronate (Fosamax) and risendronate (Actonel) New Bag 02/25/2023 11:24 AM ANALYTICS CONSULTANT 5 mg 400 mL/hr documented in this encounter
--- OUTSIDE RECORDS SUMMARY | 2023-05-04 12:41 | XMS_ITS | Encounter Summary ---
Author Name Unknown Organization [facility] Address [address] [place] [address] Care Team Providers Care Steam Box Operator Name Role Phone Unavailable Primary Care Provider Unavailabl e Reason for Referral * MRI/CAT/PET Scan (Routine) - Closed Specialty Diagnoses / Procedures Referred By Contac t Referred To Contact Radiology Diagnoses Carcinoma Renal Cell Left (HCC) Procedures CT Abdomen Pelvis with IV Contrast CT Abdomen Pelvis without and with IV Contrast Heriberto Kaba M.D., Ph.D. [address] [place] [phone] [facility] Referral ID Status Reason Start Date Expiration Date Visits Re quested Visits Authorized [id number] Closed 09/24/2022 09/24/2023 1 1 * Outpatient (Routine) - Closed Specialty Diagnoses / Procedures Referred By Contac t Referred To Contact Oncology Heriberto Kaba M.D., Ph.D. [address] [place] [address] [facility] Referral ID Status Reason Start Date Expiration Date Visits Re quested Visits Authorized [id number] Closed 09/24/2022 09/23/2025 1 1 * MRI/CAT/PET Scan (Routine) - Closed Specialty Diagnoses / Procedures Referred By Robles rivas Referred To Contact Radiology Diagnoses Carcinoma Renal Cell Left (HCC) Procedures CT Chest with IV Contrast Heriberto Kaba M.D., Ph.D. 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 [address] [address] [place] [address] [facility] Referral ID Status Reason Start Date Expiration Date Visits Re quested Visits Authorized [id number] Closed 08/20/2022 08/20/2023 1 1 Encounter Details Date Type Department Care Team (Latest Contact Info) Description 09/24/2022 3:00 PM CDT Comprehensive Visit Department of Oncology in [place], [place] [address] [place] [address] Heriberto Kaba M.D., Ph.D. 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 1 to 4 times per year 06/27/2022 Do you belong to any clubs o r organizations such as taoism groups, unions, fraternal or athletic groups, or [...] heating? 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 UTILITY WORKER Gender Identity Male 05/30/2018 12:39 PM MERCHANT MILL UTILITY WORKER Sexual Orientation Straight 05/30/2018 12 :39 PM MERCHANT MILL UTILITY WORKER documented as of this encounter Last Filed Vital Signs Vital Sign Reading Time Taken Comments Blood Pressure 122/67 09/24/2022 2:52 PM CDT Pulse 65 09/24/2022 2:52 PM CDT Temperature 37.4 ??C (99.3 ??F) 09/24/2022 2:52 PM CD T Respiratory Rate 16 09/24/2022 2:52 PM CDT Oxygen Saturation 95% 09/24/2022 2:52 PM CDT Inhaled Oxygen Concentration - - Weight 104 kg (228 lb 2.8 oz) 09/24/2022 2:52 PM CDT Height 184.6 cm (6' 0.68) 09/24/2022 2:52 PM CD T Body Mass Index 30.37 09/24/2022 2:52 PM CDT documented in this encounter Consult Notes * Heriberto Kaba M.D., Ph.D. - 09/24/2022 3:00 PM CDT DEMOGRAPHIC INFORMATION Patient Name: Alfonso Mckeon Birthdate: 1940 Sex: male [address]: [address] [place] [phone] CHIEF COMPLAINT/PURPOSE OF VISIT Purpose of visit: RCC consult SUBJECTIVE HISTORY OF PRESENT ILLNESS Alfonso Mckeon is a 82 y.o. male with a past medical history significant for metastatic RCC who is seen in clinic for follow-up. SYSTEMS REVIEW A complete 10 point systems review was performed and negative except as noted above in the HPI. PAST MEDICAL/SURGICAL HISTORY/SOCIAL HISTORY/FAMILY HISTORY Reviewed and available in the EMR. VITAL SIGNS Vitals: 09/24/22 1452 BP: 122/67 Pulse: 65 Resp: 16 Temp: 37.4 ??C SpO2: 95% OBJECTIVE PHYSICAL EXAMINATION General: NAD; nontoxic in appearance Psych: Alert, interactive, oriented x3 HEENT: pupils equal and round; mucous membranes slightly dry Heart: normal blood pressure Lungs: normal work of breathing Neuro: CN 2-12 grossly intact; no deficits noted LABS/IMAGING Recent Labs 09/24/22 1422 NA 141 CL 106 BICARB 27 CALCIUM 9.0 BUN 15 CREATININE 1.00 GLUCOSE 163 H ALBUMIN 4.1 HGB 14.5 HCT 43.0 WBC 7.[address] Head without IV Contrast Result Date: 09/10/2022 Impression: IMPRESSION: Probable chronic left maxillary and sphenoid sinusitis. Diffuse cerebral volume loss and cerebral white matter changes consistent with chronic small vessel ischemic disease. No evidence for acute intracranial pathology. Radiation dose for this scan was reduced using automated exposure control, adjustment of the mA and/or kV according to patient size, or iterative reconstruction technique KE BRACE, MD ASSESSMENT / PLAN Alfonso Mckeon is a 82 y.o. male with a past medical history significant for metastatic RCC who is seen in clinic for [...] atrial fibrillation (on warfarin). Assessment & Plan: We discussed the diagnosis at length as well as expected outcomes, treatment options, risks, benefits, side-effects, warning signs for immediate evaluation, and alternatives. We reviewed available imaging and laboratory results pertinent to the diagnosis and plan. Patient has a good understanding as well as capacity and agrees to proceed. We discussed that this appears to be an indolent RCC, and by my read has not changed appreciably inthe last 3 months. Our radiology review is pending. I would favor avoiding systemic therapy at thistime. In addition, it is unclear whether he will need localized therapy. I will see back in 4-6 months with repeat imaging. If this remains stable without additional sites, Mr. Mckeon could continuesurveillance with his primary care physician. Warning signs for earlier return to clinic given. 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 Explained diagnosis and treatment plan; patient expressed understanding of the content. It was my pleasure to care for Alfonso Mckeon today. Heriberto Kaba M.D., Ph.D.Answers submitted by the patient for this visit: General Review of Systems (Submitted on 06/27/2022) No general issues: Yes No eye issues: Yes No ENT issues: Yes No heart issues: Yes No respiratory issues: Yes No GI issues: Yes No muscle/bone issues: Yes No skin issues: Yes No neurologic issues: Yes No mental health issues: Yes No blood/lymph issues: Yes Frequent urination: Yes documented in this encounter Miscellaneous Notes * Assessment & Plan Note - Heriberto Kaba M.D., Ph.D. - 09/24/2022 3:24 PM CDT Associated Problem(s): Carcinoma Renal Cell Left (HCC) We discussed the diagnosis at length as well as expected outcomes, treatment options, risks, benefits, side-effects, warning signs for immediate evaluation, and alternatives. We reviewed available imaging and laboratory results pertinent to the diagnosis and plan. Patient has a good understanding as well as capacity and agrees to proceed. We discussed that this appears to be an indolent RCC, and by my read has not changed appreciably inthe last 3 months. Our radiology review is pending. I would favor avoiding systemic therapy at thistime. In addition, it is unclear whether he will need localized therapy. I will see back in 4-6 months with repeat imaging. If this remains stable without additional sites, Mr. Mckeon could continuesurveillance with his primary care physician. Warning signs for earlier return to clinic given. documented in this encounter Plan of Treatment Scheduled Referrals Name Type Priority Associated Diagnoses Orde r Schedule Oncology office visit (clinic) General; Renal Outpatient Referral Routine Expected: 01/24/2023, Expires: 12/26/2023 documented as of this encounter Results * CT Abdomen Pelvis with IV Contrast (02/25/2023 9:26 AM MERCHANT MILL UTILITY WORKER) Anatomical Region Laterality Modality Abdomen, Pelvis, Abdominal R ST LOS, Abdominal ARZ LOS, Abdominal FLA LOS N/A Computed Tomograp hy, Computed Tomography 02/25/2023 9:23 AM MERCHANT MILL UTILITY WORKER Impressions 02/25/2023 9:42 AM MERCHANT MILL UTILITY WORKER 1. New indeterminate enhancing hepatic lesion, low suspicion for RCC metastasis. 2. Minimal enlargement of a pancreatic metastasis. 3. Stable partial left nephrectomy. Narrative 02/25/2023 9:42 AM MERCHANT MILL UTILITY WORKER EXAM: ??CT ABDOMEN PELVIS WITH IV CONTRAST [...] partial left nephrectomy. Heriberto Kaba M.D., Ph.D. [facility] CT PROCEDUR ES * CT Chest with IV Contrast (02/25/2023 9:26 AM MERCHANT MILL UTILITY WORKER) Anatomical Region Laterality Modality Chest, Thoracic RST LOS, Tho racic ARZ LOS, Thoracic ARZ LOS, Thoracic FLA LOS N/A Computed Tomography, Compute d Tomography 02/25/2023 9:24 AM MERCHANT MILL UTILITY WORKER Impressions 02/25/2023 10:50 AM MERCHANT MILL UTILITY WORKER Stable exam including small pulmonary nodules. Narrative 02/25/2023 10:50 AM MERCHANT MILL UTILITY WORKER EXAM: CT CHEST WITH IV CONTRAST COMPARISON: [...] small pulmonary nodules. Heriberto Kaba M.D., Ph.D. [facility] CT PROCEDUR ES * (ABNORMAL) Comprehensive Metabolic Panel (02/25/2023 8:20 AM MERCHANT MILL UTILITY WORKER) Potassium, S 4.7 3.6 - 5.2 mmol/L 02/25/2023 9:28 AM MERCHANT MILL UTILITY WORKER DTL Sodium, S 141 135 - 145 mmol/L 02/25/2023 9:28 AM MERCHANT MILL UTILITY WORKER DTL Chloride, S 104 98 - 107 mmol/L 02/25/2023 9:28 AM MERCHANT MILL UTILITY WORKER DTL Bicarbonate, S 29 22 - 29 mmol/L 02/25/2023 9:28 AM MERCHANT MILL UTILITY WORKER DTL Anion Gap 8 7 - 15 02/25/2023 9:28 AM MERCHANT MILL UTILITY WORKER DTL BUN (Blood Urea Nitrogen), S 11 8 - 24 mg/dL 02/25/2023 9:28 AM MERCHANT MILL UTILITY WORKER DTL Creatinine 0.98 0.74 - 1.35 mg/dL 02/25/2023 9:28 AM MERCHANT MILL UTILITY WORKER DTL Estimated GFR (eGFR) 77 >=60 mL/min/BS A 02/25/2023 9:28 AM MERCHANT MILL UTILITY WORKER DTL Comment: Estimated GFR calculated using the 2020 CKD_EPI creatinine equation. Calcium, Total, S 9.5 8.8 - 10.2 mg/dL 02/25/2023 9:28 AM MERCHANT MILL UTILITY WORKER DTL Glucose, S 116 70 - 140 mg/dL 02/25/2023 9:28 AM MERCHANT MILL UTILITY WORKER DTL Protein, Total, S 7.3 6.3 - 7.9 g/dL 02/25/2023 9:28 AM MERCHANT MILL UTILITY WORKER DTL Albumin, S 4.4 3.5 - 5.0 g/dL 02/25/2023 9:28 AM MERCHANT MILL UTILITY WORKER DTL Aspartate Aminotransferase (AST), S 17 8 - 48 U/L 02/25/2023 9:28 AM MERCHANT MILL UTILITY WORKER DTL Alkaline Phosphatase, S 88 40 - 129 U/L 02/25/2023 9:28 AM MERCHANT MILL UTILITY WORKER DTL Alanine Aminotransferase (ALT), S 10 7 - 55 U/L 02/25/2023 9:28 AM MERCHANT MILL UTILITY WORKER DTL Bilirubin, Total, S 1.5(H) 0.0 - 1.2 mg/dL 02/25/2023 9:28 AM MERCHANT MILL UTILITY WORKER DTL Blood (Blood, Venous) 02/25/2023 8:20 AM MERCHANT MILL UTILITY WORKER 02/25/2023 9:03 AM MERCHANT MILL UTILITY WORKER Heriberto Kaba M.D., Ph.D. LAB BLOOD ADD-O N [facility] [address] [place] [address], [facility] [address] [place] [address] * (ABNORMAL) CBC no call back, reflex T/S HGB <8 (02/25/2023 8:20 AM MERCHANT MILL UTILITY WORKER) Hemoglobin 14.6 13.2 - 16.6 g/dL 02/25/2023 9:56 AM MERCHANT MILL UTILITY WORKER DTL Hematocrit 43.1 38.3 - 48.6 % 02/25/2023 9:56 AM MERCHANT MILL UTILITY WORKER DTL Erythrocytes 4.38 4.35 - 5.65 x10(12)/L 02/25/2023 9:56 AM MERCHANT MILL UTILITY WORKER DTL MCV 98.4(H) 78.2 - 97.9 fL 02/25/2023 9:56 AM MERCHANT MILL UTILITY WORKER DTL RBC Distrib Width 13.0 11.8 - 14.5 % 02/25/2023 9:56 AM MERCHANT MILL UTILITY WORKER DTL Platelet Count 283 135 - 317 x10(9)/L 02/25/2023 9:56 AM MERCHANT MILL UTILITY WORKER DTL Leukocytes 5.0 3.4 - 9.6 x10(9)/L 02/25/2023 9:56 AM MERCHANT MILL UTILITY WORKER DTL Neutrophils 2.81 1.56 - 6.45 x10(9)/L 02/25/2023 9:56 AM MERCHANT MILL UTILITY WORKER DHPM Lymphocytes 1.49 0.95 - 3.07 x10(9)/L 02/25/2023 9:56 AM MERCHANT MILL UTILITY WORKER DTL Monocytes 0.56 0.26 - 0.81 x10(9)/L 02/25/2023 9:56 AM MERCHANT MILL UTILITY WORKER DTL Eosinophils 0.07 0.03 - 0.48 x10(9)/L 02/25/2023 9:56 AM MERCHANT MILL UTILITY WORKER DTL Basophils 0.04 0.01 - 0.08 x10(9)/L 02/25/2023 9:56 AM MERCHANT MILL UTILITY WORKER DTL Blood (Blood, Venous) 02/25/2023 8:20 AM MERCHANT MILL UTILITY WORKER 02/25/2023 8:54 AM MERCHANT MILL UTILITY WORKER Heriberto Kaba M.D., Ph.D. LAB BLOOD NON A DD-ON [facility] [address] [place] [address], [facility] DTL [facility] [address] [place] [address] DHPM [facility] [address] [place] [address] * Interpretation of Outside CT Abdomen and [...] defect in the vein and portal vein (). Nolymphadenopathy. Left femoral Paget's disease. IMPRESSION: Similar enhancing pancreatic nodule. No other suspicious enhancingnodularity. Heriberto Kaba M.D., Ph.D. 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
--- OUTSIDE RECORDS SUMMARY | 2023-05-04 12:41 | XMS_ITS | Encounter Summary ---
Author Name Unknown Organization [facility] Address [address] [place] [address] Care Team Providers Care Assembling Inspector Name Role Phone Unavailable Primary Care Provider Unavailabl e Reason for Visit * Reason Onset Date Comments Pre-visit Intake 02/20/2023 Encounter Details Date Type Department Care Team (Latest Contact Info) Description 02/20/2023 9:30 AM GAME DESIGNER/CREATIVE DIRECTOR Clinical Communication Virtual Review in [place], [place] [address] [place] [address] Pre-visit Intake Social History Tobacco Use Types Packs/Day Years [...] any clubs o r organizations such as rastafari groups, unions, fraternal or athletic groups, or [...] and heating? Not hard at all 06/27/2022 [facility] of Occupat ional Health - Occupational [...] place to sleep or slept in a long-term (including now)? No 06/27/2022 Nutrition Answer Date [...] Sex Assigned at Male 05/30/2018 12:39 PM GAME DESIGNER/CREATIVE DIRECTOR Gender Identity Male 05/30/2018 12:39 PM GAME DESIGNER/CREATIVE DIRECTOR Sexual Orientation Straight 05/30/2018 12 :39 PM GAME DESIGNER/CREATIVE DIRECTOR documented as of this encounter Plan of Treatment Not on file documented as of this encounter Visit Diagnoses Not on filedocumented in this encounter
--- OUTSIDE RECORDS SUMMARY | 2023-05-04 12:41 | XMS_ITS | Encounter Summary ---
Author Name Unknown Organization [facility] Address [address] [place] [address] Care Team Providers Care Skilled Nursing Case Manager Name Role Phone Unavailable Primary Care Provider Unavailabl e Encounter Details Date Type Department Care Team (Late st Contact Info) Description 12/12/2022 Orders Only Division of Endocrinology in [place], [place] [address] [place] [address] Asa Enriquez M.D. [address] [place] [address] Osteoporosis (Primary Dx) Social History Tobacco Use [...] often do you attend chur ch or muslim services? 1 to 4 times per year 06/27/2022 Do you belong to any clubs o r organizations such as buddhism groups, unions, fraternal or athletic groups, or [...] and heating? Not hard at all 06/27/2022 [facility] [place] of Occupat ional Health - Occupational Stress [...] place to sleep or slept in a halfway (including now)? 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
--- OUTSIDE RECORDS SUMMARY | 2023-05-04 12:42 | XMS_ITS | Encounter Summary ---
Author Name Unknown Organization [facility] Address [address] [place] [address] Care Team Providers Care Printing Bindery Assistant Name Role Phone Unavailable Primary Care Provider Unavailabl e Reason for Referral * Outpatient (Routine) - Closed Specialty Diagnoses / Procedures Referred By Robles rivas Referred To Contact Diagnoses Mass Pancreas Procedures Endoscopic ultrasound (EUS) Jose Flowers M.D. [address] [address] [place] [address] [facility] Referral ID Status Reason Start Date Expiration Date Visits Re quested Visits Authorized [id number] Closed 07/12/2022 07/12/2023 1 1 Reason for Visit * Outpatient (Routine) - Closed Specialty Diagnoses / Procedures Referred By Robles rivas Referred To Contact Diagnoses Mass Pancreas Procedures Endoscopic ultrasound (EUS) Jose Flowers M.D. [address] [address] [place] [address] [facility] Referral ID Status Reason Start Date Expiration Date Visits Re quested Visits Authorized [id number] Closed 07/12/2022 07/12/2023 1 1 Encounter Details Date Type Department Care Team (Latest Contact Info) Description 07/25/2022 6:31 AM CDT - 07/25/2022 11:59 PM CDT Hospital Encounter Division of Gastroenterology in [place], [place] [address] [place] [phone] Jose Flowers M.D. [address] [address] [place] [phone] Jasmin Taylor M.D. [address] [place] [phone] Marie Brooks, DEAN OF WOMEN, OFFICE MACHINE SERVICER APPRENTICE, DNAP [address] [place] [address] Mass Pancreas Discharge Disposition: Home or Self Care Social [...] often do you attend chur ch or buddhist services? 1 to 4 times per year 06/27/2022 Do you belong to any clubs o r organizations such as mormonism groups, unions, fraternal or athletic groups, or [...] and heating? Not hard at all 06/27/2022 [facility] [place] [facility] Occupat ional Health - Occupational Stress [...] Sex Assigned at Male 05/30/2018 12:39 PM DIETITIAN Gender Identity Male 05/30/2018 12:39 PM DIETITIAN Sexual Orientation Straight 05/30/2018 12 :39 PM DIETITIAN documented as of this encounter Last Filed Vital Signs Vital Sign Reading Time Taken Comments Blood Pressure 132/72 07/25/2022 9:45 AM CDT Pulse 61 07/25/2022 9:53 AM CDT Temperature 36.4 ??C (97.5 ??F) 07/25/2022 9:53 AM CD T Respiratory Rate 21 07/25/2022 9:53 AM CDT Oxygen Saturation 91% 07/25/2022 9:53 AM CDT Inhaled Oxygen Concentration - - Weight - - Height - - Body Mass Index - - documented in this encounter Discharge Instructions * Attachments The following attachments cannot be sent through Care Everywhere. * Clear Liquid Diet (Vincentian) * About Your Endoscopic Ultrasound (Vincentian) documented in this encounter Medications at Time [...] 10 mg by mouth daily. 0 05/09/2018 calcium carb and citrate-vitD3 600 mg calcium- 500 unit tablet extended release Take by mouth daily. 0 06/29/2015 023 finasteride (PROSCAR) 5 mg tablet Take 1 tablet (5 mg total) by mouth daily. 90 tablet 3 06/29/2022 09/23/2022 fluticasone (FLONASE) 50 mcg/actuation nasal spray Administer into affected nostril(s) 2 (two) times a day. 0 07/17/2017 02/20/2023 tamsulosin (FLOMAX) 0.4 mg 24 hr capsule Daily 0 04/25/2021 023 triamcinolone (KENALOG) 0.1 % cream as needed. 0 03/30/20162022 documented as of this encounter Plan of Treatment Not on file documented as of this encounter Procedures Procedure Name Priority Date/Time Associated Diagnosis Comments INR, POCT, B Routine 07/25/2022 7:52 AM CDT UPPER EUS Routine 07/25/2022 7:38 AM CDT Mass Pancreas ENDOSCOPIC ULTRASOUND (EUS) Routine 07/25/2022 7:38 AM CDT Mass Pancreas documented in this encounter Results * INR, POCT (07/25/2022 7:52 AM CDT) INR, POCT, B 1.1 07/25/2022 7:57 AM CDT PCMO Comment: ----ADDITIONAL INFORMATION---- Standard intensity warfarin therapeutic range: 2.0 to 3.0 ?? High intensity warfarin therapeutic range: 2.5 to 3.5 Blood 07/25/2022 7:52 AM CDT 07/25/2022 7:57 AM CDT Unknown Provider LAB POCT ORDERABLES - DEVICE POC [facility] [address] [place] [address], [facility] POC [address] [place] [address] * Upper EUS (07/25/2022 7:38 AM CDT) 07/25/2022 7:38 AM CDT Impressions [facility] - 07/25/2022 9:52 AM CDT Post-op Diagnoses: ? - A well defined hypoechoic mass was identified in the pancreatic ? head/uncinate measuring 15.6 mm. The lesion was deep to the probe and ? deep to overlying vessels making FNB a challenge. Attempted a single ? pass, however the needle tip was poorly visualized due to distance from ? the probe. Minor bleeding occurred which was observed and stopped ? spontaneously. No further attempts made and NO tissue obtained. Overall ? appearance suggestive of pNET versus metastasis. Suggest PET Dotatate as ? clinically indicated. ? - Fatty pancreas. Prominent pancreas duct in the head measuring 4.5 mm ? - There was no sign of significant pathology in the common bile duct. ? - There was no evidence of significant pathology in the left lobe of the ? liver. ? - No specimens collected. Narrative [facility] - 07/25/2022 9:52 AM CDT [facility] GI Patient Name: Alfonso Mckeon Date of : 1940 Age: 82 Gender: Male Procedure Date: 07/25/2022 Procedure: ? Upper EUS Providers: ? Jasmin Taylor MD Referring Provider: ?Jose Flowers MD Pre-op Diagnoses: ?Abnormal abdominal/pelvic CT scan Recommendation: ? - The patient will be observed post-procedure, until all discharge ? criteria are met. ? - Return to referring physician. ? - Clear liquid diet today. ? - Re-start coumadin tomorrow Findings: ? ENDOSONOGRAPHIC FINDING: : ? A mass was identified in the pancreatic head/uncinate. The mass was ? hypoechoic. The mass measured 15.6 mm in maximal cross-sectional ? diameter. The endosonographic borders were well-defined. ? There was no sign of significant endosonographic abnormality in the ? common bile duct. ? There was no sign of significant endosonographic abnormality in the left ? lobe of the liver. Procedural Details: ? The patient was seen, evaluated, history reviewed, airway and heart-lung ? exams were performed by licensed provider and were satisfactory for ? planned level of sedation care. ? The risks, benefits and alternatives for the procedure and sedation were ? discussed and informed consent was obtained. A procedural pause was ? conducted in the presence of assisting personnel to verify the correct ? patient identity and procedure to be performed. Throughout the ? procedure, the patient's blood pressure, pulse, and oxygen saturations ? were monitored continuously. The Endosonoscope was introduced through ? the mouth, and advanced to the second part of duodenum. The upper EUS ? was accomplished without difficulty. The patient tolerated the procedure ? well. Complications: ? No immediate complications. Estimated Blood Loss: ?Estimated blood loss was minimal. Attending Participation: I personally performed the entire procedure. Jasmin Taylor MD 07/25/2022 9:51:35 AM This report has been signed electronically. Number of Addenda: 0 Note Initiated On: 07/25/2022 7:38 AM Jose Flowers M.D. GI PROCEDURE ORD ERABLES [employer] NA documented in this encounter Visit Diagnoses Diagnosis Mass Pancreas documented in this encounter
--- OUTSIDE RECORDS SUMMARY | 2023-05-04 12:42 | XMS_ITS | Encounter Summary ---
Author Name Unknown Organization [facility] Address [address] [place] [address] Care Team Providers Care Rug Dyer Helper Name Role Phone Unavailable Primary Care Provider Unavailabl e Encounter Details Date Type Department Care Team (Latest Contact Info) Description 07/25/2022 7:40 AM CDT Ancillary Procedure Department of Gastroenterology Social History Tobacco Use Types Packs/Day Years [...] week 06/27/2022 How often do you attend [facility] or zoroastrianism services? 1 to 4 times per year [...] and heating? Not hard at all 06/27/2022 [facility] - Occupational [...] place to sleep or slept in a jail (including now)? No 06/27/2022 Nutrition Answer Date [...] Sex Assigned at Male 05/30/2018 12:39 PM CHILD LIFE THERAPIST Gender Identity Male 05/30/2018 12:39 PM CHILD LIFE THERAPIST Sexual Orientation Straight 05/30/2018 12 :39 PM CHILD LIFE THERAPIST documented as of this encounter Plan of Treatment Not on file documented as of this encounter Procedures Procedure Name Priority Date/Time Associated Diagnosis Comments GASTROENTEROLOGY IMAGE EXAM Routine 07/25/2022 7:40 AM CDT documented in this encounter Results * Upper EUS-Gastroenterology Image Exam (07/25/2022 7:40 AM CDT) 07/25/2022 7:38 AM CDT Narrative [facility] - 07/25/2022 10:02 AM CDT This order has been created and auto-finalized to support the import of images acquired without order. The clinical documentation to support these images can be found on the encounter that produced images. Provider Not In System IMG NON RAD IMAGI NG PROCEDURES [facility] NA documented in this encounter Visit Diagnoses Not on filedocumented in this encounter
--- OUTSIDE RECORDS SUMMARY | 2023-05-04 12:42 | XMS_ITS | Encounter Summary ---
Author Name Unknown Organization [facility] Address [address] [place] [address] Care Team Providers Care Box Cutter Name Role Phone Unavailable Primary Care Provider Unavailabl e Reason for Visit * Appointment Request (Routine) - Closed Specialty Diagnoses / Procedures Referred By Robles rivas Referred To Contact Urology Diagnoses Elevated Prostate-Specific Antigen Referral ID Status Reason Start Date Expiration Date Visits Re quested Visits Authorized [id number] Closed 07/03/2022 07/03/2023 1 1 Encounter Details Date Type Department Care Team (Late st Contact Info) Description 07/12/2022 7:30 AM CDT Office Visit Department of Urology in [place], [place] [address] [place] [phone] Neil Moura, SAEID, C.N.P., M.S.N. [address] [place] [phone] Benign Prostatic Hyperplasia Hypertrophy With Obstruction (Primary Dx) Social History Tobacco Use Types [...] any clubs o r organizations such as scientology groups, unions, fraternal or athletic groups, or [...] and heating? Not hard at all 06/27/2022 [facility] [place] of Occupat ional Health - Occupational Stress [...] Sex Assigned at Male 05/30/2018 12:39 PM FINISHING PAN OPERATOR Gender Identity Male 05/30/2018 12:39 PM FINISHING PAN OPERATOR Sexual Orientation Straight 05/30/2018 12 :39 PM FINISHING PAN OPERATOR documented as of this encounter Progress Notes * Neil Moura APRN, C.N.P., M.S.N. - 07/12/2022 7:30 AM CDT SUBJECTIVE REQUESTING PROVIDER No ref. provider found CHIEF COMPLAINT/REASON FOR VISIT Nocturia HISTORY OF PRESENT ILLNESS Mr. Mckeon is a 82 y.o. male presents today for evaluation of lower urinary tract symptoms and elevated PSA. Recent PSA in May 2022 was 4.7 ng/mL locally. Repeat PSA today was 2.9 ng/mL. This is stable [id number]. He is never had a prostate MRI or prostate biopsy. He denies history of abnormal YESICA. Patient also endorses lower urinary tract symptoms. Nocturia is most bothersome to him. He is up every few hours during the night. He denies history of UTI or urinary retention. Urinalysis is negative. Denies hematuria, dysuria, and incontinence. He has taken Flomax and finasteride in the past. However, he has discontinued these medicines as he has noticed a increase in gait instability and has read that these medicines can contribute to this. He questions the utility of saw palmetto and other prostate supplements today. Fluid a take consists of coffee in the morning and water later in the day. He drinks up until 2 hours prior to bedtime. He denies lower extremity edema. He denies history of sleep apnea. PMH/PSH The following portions of the patient's history were reviewed and updated as appropriate: allergies, current medications, family history, medical history, social history, surgical history and problemlist. Social History: Social History Socioeconomic History Marital status: Spouse name: Not on file Number of children: Not on file Years of education: Not on file Highest education level: 12th grade Occupational History Not on file Tobacco Use Smoking status: Former Smokeless tobacco: Not on file Substance and Sexual Activity Alcohol use: Not on file Drug use: Not on file Sexual activity: Not on file Other Topics Concern Not on file Social History Narrative Not on file Social Determinants of Health Financial Resource Strain: Low Risk Difficulty of Paying Living Expenses: Not hard at all Food Insecurity: No Food Insecurity Worried About Running Out of Food in the Last Year: Never true Ran Out of Food in the Last Year: Never true Transportation Needs: No Transportation Needs Lack of Transportation (Medical): No Lack of Transportation (Non-Medical): No Physical Activity: Insufficiently Active Days of Exercise per Week: 2 days Minutes of Exercise per Session: 30 min Stress: Stress Concern Present Feeling of Stress : To some extent Social Connections: Moderately Integrated Frequency of Communication with Friends and Family: Twice a week Frequency of Social Gatherings with Friends and Family: Twice a week Attends Hindu Services: 1 to 4 times per year Active Member of Clubs or Organizations: Yes Attends Club or Organization Meetings: 1 to 4 times per year Marital Status: Intimate Partner Violence: Not At Risk Fear of Current or Ex-Partner: No Emotionally Abused: No Physically Abused: No Sexually Abused: No Housing Stability: Low Risk Unable to Pay for Housing in the Last Year: No Number of Places Lived in the Last Year: 1 Unstable Housing in the Last Year: No Family History: No family history on file. REVIEW OF SYSTEMS Genitourinary: Positive for difficulty urinating and frequent urination. The following systems were negative: Constitutional, Skin, Eyes, ENT, Respiratory, Cardiovascular, Gastrointestinal, Hematologic, Musculoskeletal, Neurological, Psychiatric Per HPI. 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 Lower Urinary Symptoms Lower Urinary Sx: difficulty urinating (+) OBJECTIVE PHYSICAL EXAM Constitutional: He is oriented to person, place, and time. He appears well- developed and well-nourished. HENT: Head: Normocephalic. Eyes: Conjunctivae are normal. Pulmonary/Chest: Effort normal. Neurological: He is alert and oriented to person, place, and time. Skin: Skin is warm and dry. Psychiatric: He has a normal mood and affect. His behavior is normal. Judgment and thought content normal. LABORATORY Lab Results Component Value Date NA 141 06/29/2022 CL 105 06/29/2022 BUN 14 06/29/2022 CO2 25 07/03/2021 HGB 14.3 06/19/2022 HCT 41.9 06/19/2022 WBC 5.8 06/19/2022 PSA 2.9 07/12/2022 Lab Results Component Value Date/Time CREATININE 0.95 06/29/2022 06:49 AM CREATININE 0.85 06/19/2022 08:35 AM CREATININE 0.96 06/04/2022 11:08 AM CREATININE 0.82 07/03/2021 08:40 AM CREATININE 1.09 06/16/2021 10:20 AM CREATININE 1.06 2020 09:32 AM CREATININE 0.83 04/12/2020 08:23 AM CREATININE 0.90 06/17/2019 08:52 AM CREATININE 0.96 06/01/2019 08:42 AM CREATININE 1.0 06/20/2017 09:22 AM Lab Results Component Value Date/Time PSA 2.9 07/12/2022 06:10 AM PSA 2.7 06/25/2016 08:[address] Chest with IV Contrast Result Date: 06/29/2022 Narrative: EXAM: CT CHEST WITH IV CONTRAST COMPARISON: 06/16/2021 FINDINGS: There is a 5 mm nodule in the right lower lobe (3/564). This is unchanged from the prior examination. Few additional micronodules are also stable including in the right lower lobe (/) and in the left lower lobe (3/275).No new nodules. No thoracic adenopathy. No pleural effusion. No parenchymal consolidation. Calcified granulomas in both lungs. Stable left fissural lymph nodes. Slight fibrosis or linear atelectasis in the bases. Right apical scarring. AV pacemaker. Coronary, aortic valvular, and mitral annulus calcification. Stable ectasia of the ascending aorta measuring 45 mm. Slight cardiac enlargement. Stable prominence of the central pulmonary arteries. Degenerative changes thoracic spine. Old bilateral rib fractures. Benign bone island right 6th rib. Stable mild compression of the T9 vertebral body. Small esophageal hiatal hernia. This examination was performed in conjunction with a CT of the abdomen, which will be reported separately. Impression: Stable exam including small pulmonary nodules. CT Abdomen Pelvis with IV Contrast Result Date: 06/29/2022 Narrative: EXAM: CT ABDOMEN PELVIS WITH IV CONTRAST COMPARISON: 06/16/2021 FINDINGS: Postoperative changes of left partial nephrectomy. There is a 1.6 cm enhancing nodule in the head of the pancreas which is better visualized than on the previous exam, suspicious for metastatic disease (series 3 image 69). No additional findings in the abdomen or pelvis suspicious for metastatic disease. Hepatic,splenic and bilateral renal cysts. Diverticulosis. Cholecystectomy. Vascular calcifications. StablePaget's disease of the left femur. Degenerative changes both hips. Hypertrophic changes in the spine. This examination was performed in conjunction with a CT of the chest, which will be reported separ boris. Impression: Enhancing nodule in the pancreas is better seen than on the previous exam and concerning for metastatic disease. No additional findings concerning for recurrent or metastatic disease. ASSESSMENT / PLAN #1 Nocturia #2 Elevated PSA It was a pleasure meet with Mr. Mckeon and his family in clinic today. Reviewed his history, lab work, and testing. We discussed his PSA has returned to baseline level at 2.9 ng/mL. His exam today was unremarkable. We discussed continuation of prostate cancer screening. We reviewed AUA guidelines r ecommending discontinuation of prostate cancer screening after age 70. We discussed there is a verylow likelihood of him developing a lethal prostate cancer. However, if the patient wishes to continue with PSA testing in the future I would recommend every 1-2 years. We next discussed his lower urinary tract symptoms. We discussed that there are multiple factors that can contribute to nocturia including incomplete bladder emptying, overactive bladder, pharmacological agents, other health problems, and behavioral patterns that the patient has developed over time. We reviewed conservative approaches to manage nocturia including limiting fluid intake 3-4 hours prior to bedtime, limiting dietary bladder irritants later in the day, and double voiding prior to bedtime. We also discussed obstructive sleep apnea can contribute to increased urine production at night as well as lower extremity edema. We discussed additional testing could include a uroflow. I have offered this today. However, the patient has declined. We discussed reasons for additional evaluation and consideration for escalation of treatment would be recurrent urinary tract infections, episodes of urinary retention, worsening kidney function secondary to ureteral reflux. Patient will continue to monitor his symptoms. He will trial behavioral strategies for his nighttime voiding and consider initiating saw palmetto if behavioral strategies are not helpful. All questions were answered. Signed by: Neil Moura APRN, C.N.P., M.S.N. 07/12/2022 7:50 AM CDT documented in this encounter Plan of Treatment Not on file documented as of this encounter Visit Diagnoses Diagnosis Benign Prostatic Hyperplasia Hypertrophy With Obstruction- Primary documented in this encounter
--- OUTSIDE RECORDS SUMMARY | 2023-05-04 12:42 | XMS_ITS | Encounter Summary ---
Author Name Unknown Organization [facility] Address [address] [place] [address] Care Team Providers Care Accuracy Expert Name Role Phone Unavailable Primary Care Provider Unavailabl e Reason for Referral * Outpatient (Routine) - Closed Specialty Diagnoses / Procedures Referred By Contact Referred To Contact Gastroenterology and Hepatology Diagnoses Mass Pancreas Geraldo Dickerson P.ALenka-CLenka [address] [place] [phone] [facility] Referral ID Status Reason Start Date Expiration Date Visits Re quested Visits Authorized [id number] Closed 06/29/2022 06/29/2023 1 1 Reason for Visit * Outpatient (Routine) - Closed Specialty Diagnoses / Procedures Referred By Contac t Referred To Contact Urology Effie Rodriguez, VIDEO NETWORK ENGINEER, C.N.P. [address] [place] [phone] [facility] Referral ID Status Reason Start Date Expiration Date Visits Re quested Visits Authorized [id number] Closed 2021 2022 1 1 Encounter Details Date Type Department Care Team (Late st Contact Info) Description 06/29/2022 3:30 PM CDT Office Visit Department of Urology in [place], [place] [address] [place] [phone] Effie Rodriguez APRN, C.N.P. [address] [place] [phone] Geraldo Dickerson P.A.-C. [address] [place] [phone] Mass Pancreas (Primary Dx); Carcinoma Renal Cell Left (HCC) Social History [...] week 06/27/2022 How often do you attend [facility] or pentecostal services? 1 to 4 times per year [...] and heating? Not hard at all 06/27/2022 [facility] - Occupational Stress Questionnaire Answer Date Recorded [...] place to sleep or slept in a fpc (including now)? No 06/27/2022 Nutrition Answer Date Recorded Nutrition: EVOO Fat Source No 03/29 /2023 On average, how many serving s of [...] Sex Assigned at Male 05/30/2018 12:39 PM PAN HELPER Gender Identity Male 05/30/2018 12:39 PM PAN HELPER Sexual Orientation Straight 05/30/2018 12 :39 PM PAN HELPER documented as of this encounter Progress Notes * Geraldo Dickerson P.A.-C. - 06/29/2022 3:30 PM CDT SUBJECTIVE CHIEF COMPLAINT / REASON FOR CONSULT [facility] recheck Patient of Dr. Odonnell seen on survivorship calendar HISTORY OF PRESENT ILLNESS Mr. Mckeon is a pleasant 82 y.o. male who underwent left robotic partial nephrectomy which was converted to a left open partial nephrectomy February 09, 2014. Pathology showed grade 2 of 4, pT1a clear cell renal cell carcinoma. He has had an indeterminate pulmonary nodule which has been followed with repeat CT scans. He also has a history of Paget's disease of the bone and follows with endocrinology. He has tried Flomax but gets significantly lightheaded from it. OBJECTIVE PHYSICAL EXAMINATION General: Well-appearing, in no acute apparent distress. ASSESSMENT / PLAN #1 Renal cell carcinoma #2 Pulmonary nodule I reviewed the situation with the patient. He has a pancreatic nodule that does not appear to be progressing however it does enhance. I will refer the patient to the pancreas clinic for evaluation. Plan 1. Patient should follow-up in [address] of the abdomen pelvis with and without contrast, chest CT without contrast, uroflow, BMP, and office visit. documented in this encounter Plan of Treatment Scheduled Referrals Name Type Priority Associated Diagnoses Order Schedule Gastroenterology and Hepatology - High risk pancreas consult (clinic) Outpatient Referral Routine Mass Pancreas Expected: 06/29/2022 (Approximate), Expires: 09/29/2023 documented as of this encounter Visit Diagnoses Diagnosis Mass Pancreas- Primary Carcinoma Renal Cell Left (HCC) documented in this encounter
--- OUTSIDE RECORDS SUMMARY | 2023-05-04 12:42 | XMS_ITS | Encounter Summary ---
Author Name Unknown Organization [facility] Address [address] [place] [address] Care Team Providers Care Concessionist Name Role Phone Unavailable Primary Care Provider Unavailabl e Reason for Referral * Outpatient (Routine) - Closed Specialty Diagnoses / Procedures Referred By Contsoledad rivas Referred To Contact Diagnoses Mass Pancreas Procedures Endoscopic ultrasound (EUS) Jose Flowers M.D. [address] [address] [place] [address] [facility] Referral ID Status Reason Start Date Expiration Date Visits Re quested Visits Authorized [id number] Closed 07/12/2022 07/12/2023 1 1 Reason for Visit * Outpatient (Routine) - Closed Specialty Diagnoses / Procedures Referred By Contact Referred To Contact Gastroenterology and Hepatology Diagnoses Mass Pancreas Geraldo Dickerson P.A.-C. [address] [place] [address] [facility] Referral ID Status Reason Start Date Expiration Date Visits Re quested Visits Authorized [id number] Closed 06/29/2022 06/29/2023 1 1 Encounter Details Date Type Department Care Team (Latest Contact Info) Description 07/12/2022 9:00 AM CDT Comprehensive Visit Division of Gastroenterology in [place], [place] [address] [place] [address] Geraldo Dickerson P.A.-C. [address] [place] [address] Jose Flowers M.D. [address] [address] [place] [phone] Mass Pancreas Social History Tobacco Use Types Packs/Day Years [...] week 06/27/2022 How often do you attend [facility] or gnosticist services? 1 to 4 times per year [...] all 06/27/2022 [facility] - Occupational Stress Questionnaire Answer [...] to sleep or slept in a senior living (including now)? No 06/27/2022 Nutrition Answer Date Recorded Nutrition: EVOO Fat Source No 06/27 On average, how many serving s of fruits and vegetables do you eat per day (serving size is equal to 1 cup or approximately the size of a tennis ball)? 2-3 06/27/2022 Dental Answer Date Recorded Dental: Regular Dentist Yes 06/28/19 23 Employment Answer Date Recorded Employment status Retired 06/27/2022 Education Answer Date Recorded What is the highest level of school you have completed or the highest degree you have received? 12th grade 06/27/2022 Sex and Gender Information Value Date Recorded Sex Assigned at Male 05/30/2018 12:39 PM CNC LASER OPERATOR Gender Identity Male 05/30/2018 12:39 PM CNC LASER OPERATOR Sexual Orientation Straight 05/30/2018 12 :39 PM CNC LASER OPERATOR documented as of this encounter Consult Notes * Jose Flowers M.D. - 07/12/2022 9:00 AM CDT Outpatient Consultation Alfonso Mckeon [phone] Date of Consultation: 07/12/2022 Referring Physician: Geraldo Dickerson P.A.-C. Primary Care Provider: No primary care provider on file. SUBJECTIVE CHIEF COMPLAINT / REASON FOR CONSULT Pancreatic lesion HISTORY OF PRESENT ILLNESS Mr. Mckeon is a very pleasant 82 y.o. male who is being seen in clinic today. 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 From a GI standpoint patient is asymptomatic with no abdominal pain, jaundice, weight loss, nausea,vomiting and no new diagnosis of diabetes. Patient has a pancreatic head lesion that is 1.6 cm in size hyperenhancing in nature. Though was detected in 2022 CT abdomen pelvis that he has been obtaining yearly due to renal cell cancer it appears that was present since 2019 but much smaller in size. About 4 mm in size then. From a social history quit smoking 20 years ago, 3-4 alcoholic beverages a week, no recreational drug use. Works as a [employer] No family history of pancreatic cancer REVIEW OF SYSTEMS All other systems reviewed and negative unless mentioned in the history of present illness, patientprovided information or problem list. The following portions of the patient's history were reviewed and updated as appropriate: allergies, current medications, family history, medical history, social history, surgical history and problemlist. OBJECTIVE There were no vitals taken for this visit. PHYSICAL EXAMINATION General: No acute distress. Skin: Warm, dry, intact. No rash, lesion, or ecchymoses. Head: Normocephalic, atraumatic. ENT: Sclerae anicteric. Lymph: No lymphadenopathy or edema. Heart: Normal rate and regular rhythm Lungs:normal respiratory effort. Abdomen: Nontender, nondistended. MSK: No joint erythema or swelling. Normal muscle bulk and power. Neuro: Moves all 4 extremities spontaneously; normal gait. Mental: Alert and oriented to person, place, time, and situation. ASSESSMENT / PLAN Mr. Mckeon is a very pleasant 82 y.o. male who is being seen in clinic today. 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 At this junction we will proceedwith endoscopic ultrasound as well as biopsy of this lesion. If this comes back positive for metastatic renal cell cancer will refer to Medical Oncology for consideration of either surveillance, immunotherapy and or endoscopic ablation procedure. If this comes back as neuroendocrine tumor we will continue ongoing surveillance. Discuss risks of the procedure of the endoscopy with bleeding, perforation and infection including acute pancreatitis. Patient knows to hold warfarin beforehand will talk to PCP about timing. Will discuss with the patient over the phone. This was staffed with Dr. Amador Time of visit (including aoyc-vs-amci and uvn-zlho-gh-face time spent on the day of the patient visit) with patient today was: Total Time: 45 minutes, of which more than 50% was for treatment and counseling. PATIENT EDUCATION Ready to learn, no apparent learning barriers were identified; learning preferences include listening. Explained diagnosis and treatment plan; patient expressed understanding of the content. Jose Flowers M.D. 07/12/2022 Answers submitted by the patient for this visit: General Review of Symptoms (Submitted on 06/27/2022) No general issues: Yes No eye issues: Yes No ENT issues: Yes No heart issues: Yes No respiratory issues: Yes No GI issues: Yes No muscle/bone issues: Yes No skin issues: Yes No neurologic issues: Yes No mental health issues: Yes No blood/lymph issues: Yes Frequent urination: Yes * Laura Amador M.D. - 07/12/2022 9:00 AM CDT Outpatient Supervisory Note Date of Consultation: 07/12/2022 Referring Physician: Kimmie Hobbs* This is a supervisory note for Dr Flowers. I have reviewed the available records, interviewed and examined the patient. I agree with the chief complaint, history of present illness, past medicaland surgical history, medications, physical examination, and impression/plan as outlined in Dr Flowers's note dated today. Chief Complaint/Reason for Consult: No primary diagnosis found. History of Present Illness: Mr. Mckeon is a very pleasant 82 y.o. male. The encounter diagnosis was Mass Pancreas. Assessment/Plan: #1 Mass Pancreas Mr. Mckeon is a very pleasant 82 y.o. male who presents for evaluation and management of No primary diagnosis found.. Patient here for an incidentally detected 1 point 6-1.7 cm enhancing lesion in the head of the pancreas done for a routine surveillance of clear cell carcinoma after partial left nephrectomy in 2013.There is also small pulmonary nodules less than 1 cm being followed by Urology colleagues. He has no symptoms. He is on warfarin for atrial fibrillation. 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 When we looked at the scan of 2021 we can see the same lesion at slightly smaller size in a retrospective manner. Plan: Discussed with the patient, son, daughter who is an RN. 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 The other possibility is neuroendocrine tumor of the pancreas. The patient has already stopped warfarin for few days and has been okayedto do so by the primary care physician. Hence we do not have the need to go for thrombophilia anymore. All 3 of them are agreeable for EUS and fine-needle aspiration core biopsy to sort out the issue. If it is clear cell carcinoma metastatic to the head of the pancreas along with our Urology colleagues approval we will have Oncology to look at systemic therapy mostly immunotherapy. If it is neuroendocrine tumor most likely we are going to follow him rather than consider resection because it is going to be Whipple. He still not at the size criteria which is 2 cm. documented in this encounter Plan of Treatment Not on file documented as of this encounter Visit Diagnoses Diagnosis Mass Pancreas documented in this encounter
--- OUTSIDE RECORDS SUMMARY | 2023-05-04 12:42 | XMS_ITS | Encounter Summary ---
Author Name Unknown Organization [facility] Address [address] [place] [address] Care Team Providers Care Bucket Operator Name Role Phone Unavailable Primary Care Provider Unavailabl e Encounter Details Date Type Department Care Team (Late st Contact Info) Description 07/05/2022 Clinical Communication Department of Urology in [place], [place] [address] [place] [address] Neil Moura, SAEID, C.N.P., M.S.N. [address] [place] [phone] Social History Tobacco Use Types Packs/Day Years [...] often do you attend chur ch or spiritism services? 1 to 4 times per year 06/27/2022 Do you belong to any clubs o r organizations such as mandaeism groups, unions, fraternal or athletic groups, or [...] and heating? Not hard at all 06/27/2022 [facility] of Occupat ional Health - Occupational Stress [...] place to sleep or slept in a [place] health care facility (including now)? No 06/27/2022 Nutrition Answer Date [...] Sex Assigned at Male 05/30/2018 12:39 PM BIN OPERATOR Gender Identity Male 05/30/2018 12:39 PM BIN OPERATOR Sexual Orientation Straight 05/30/2018 12 :39 PM BIN OPERATOR documented as of this encounter Plan of Treatment Not on file documented as of this encounter Results * Urinalysis with Microscopic: Urine, Midstream (07/12/2022 6:20 AM CDT) Source Midstream 07/12/2022 7:20 AM CDT DTL Color, U Yellow 07/12/2022 7:20 AM CDT DTL Clarity, U Clear 07/12/2022 7:20 AM CDT DTL Protein, U 6 <26 mg/dL 07/12/2022 8:08 AM CDT DTL Protein/Osmola lity 0.10 <0.42 ratio 07/12/2022 8:08 AM CDT DTL Predicted 24 HR Protein, U 102 <229 mg/24 h 07/12/2022 8:08 AM CDT DTL Predicted Range 32-321 mg/24 h 07/12/2022 8:08 AM CDT DTL Urine (Urine, Midstream) 07/12/2022 6:20 AM CDT 07/12/2022 7:20 AM CDT Neil Moura APRN, C.N.P., M.S.N. LAB U RINE ORDERABLES Performing Organization Address [facility] [place] [address] * PSA (Prostate-Specific Antigen), Diagnostic (07/12/2022 6:10 AM CDT) Prostate-Specific Ag 2.9 <=7.2 ng/mL 07/12/2022 6:56 AM CDT DTL Comment: ----ADDITIONAL INFORMATION---- The testing method is an electrochemiluminescence assay manufactured by [employer] and performed on the Modular or Juanita system. Values obtained with different assay methods or kits may be different and cannot be used interchangeably. Test results cannot be interpreted as absolute evidence for the presence or absence of malignant disease. Blood (Blood, Venous) 07/12/2022 6:10 AM CDT 07/12/2022 6:32 AM CDT Neil Moura APRN, C.N.P., M.S.N. LAB B LOOD ADD-ON Performing Organization Address [facility] Co de Phone Number [facility] [address] [place] [address], [facility] [address] [address] documented in this encounter Visit Diagnoses Diagnosis Elevated Prostate-Specific Antigen- Primary documented in this encounter
--- OUTSIDE RECORDS SUMMARY | 2023-05-04 12:42 | XMS_ITS | Encounter Summary ---
Author Name Unknown Organization [facility] Address [address] [place] [address] Care Team Providers Care Bulldozer Mechanic Name Role Phone Unavailable Primary Care Provider Unavailabl e Reason for Visit * Outpatient (Routine) - Closed Specialty Diagnoses / Procedures Referred By Robles rivas Referred To Contact Diagnoses Benign Prostatic Hyperplasia Hypertrophy With Obstruction Procedures URO Uroflow Effie Rodriguez APRN, C.N.P. [address] [place] [address] [facility] Referral ID Status Reason Start Date Expiration Date Visits Re quested Visits Authorized [id number] Closed 2021 2022 1 1 Encounter Details Date Type Department Care Team (Latest Contact Info) Description 06/29/2022 2:15 PM CDT Procedure visit Department of Urology in [place], [place] [address] [place] [phone] Effie Rodriguez APRN, C.N.P. [address] [place] [phone] Urvashi Sheikh [address] [place] [phone] Benign Prostatic Hyperplasia Hypertrophy With Obstruction Social History Tobacco Use Types Packs/Day Years [...] often do you attend chur ch or bahai services? 1 to 4 times per year 06/27/2022 Do you belong to any clubs o r organizations such as scientologist groups, unions, fraternal or athletic groups, or [...] and heating? Not hard at all 06/27/2022 [facility] of Occupat ional Health - Occupational Stress [...] place to sleep or slept in a alf (including now)? No 06/27/2022 Nutrition Answer Date [...] Sex Assigned at Male 05/30/2018 12:39 PM BUSINESS ANALYST INTERN Gender Identity Male 05/30/2018 12:39 PM BUSINESS ANALYST INTERN Sexual Orientation Straight 05/30/2018 12 :39 PM BUSINESS ANALYST INTERN documented as of this encounter Progress Notes * O Praveen, Urvashi A - 06/29/2022 2:15 PM CDT CHIEF COMPLAINT Patient here for a complex uroflow via calibrated electronic equipment and a residual urine check by ultrasound. IMPRESSION/REPORT/PLAN Effie Rodriguez APRN, C.N.P. ordered the patient to have a complex uroflow with residual urine check via ultrasound. Patient had a mild urge to void. Uroflow was not completed at this time. Patient voided 30 mL's and had a ultrasound residual of 106 mL's. Patient rates pain at 0 on the 0 to 10 pain scale post procedure. Paper did not print out. documented in this encounter Plan of Treatment Not on file documented as of this encounter Visit Diagnoses Diagnosis Benign Prostatic Hyperplasia Hypertrophy With Obstruction documented in this encounter
--- OUTSIDE RECORDS SUMMARY | 2023-05-04 12:42 | XMS_ITS | Encounter Summary ---
Author Name Unknown Organization [facility] Address [address] [place] [address] Care Team Providers Care Disposal Plant Operator Name Role Phone Unavailable Primary Care Provider Unavailabl e Encounter Details Date Type Department Care Team (Latest Contact Info) Description 07/25/2022 8:16 AM CDT Anesthesia Event Division of Gastroenterology in [place], [place] [address] [place] [address] Marie Brooks APRN, CRNA, DNAP [address] [place] [address] Afshin Macedo M.D. [address] [place] [phone] Anesthesia Record Procedure Summary Procedure Name Responsible Anesthesiologist Anesthesia Start Time Anesthesia Stop Time ENDOSCOPIC ULTRASOUND (EUS) Marie Brooks APRN, CRNA, DNAP 07/25/22 0816 07/25/22 0912 Events Date Time Event Comment 07/25/2022 0816 An Start Machine/Equipme nt Checked Infection Precautions Followed Procedure/Site Verified NPO Status Verified Supine Standard ASA Monitors Applied 0822 Turnover to Proceduralist 0828 Proc Start 0901 Proc Fin 0903 Turnover to ANE Staff 0906 an stop data 0912 An End I completed my handoff to the receiving staff during which we 1. Identified the patient 2. Identified the responsible provider 3. Reviewed the pertinent medical history 4. Discussed the surgical course 5. Reviewed intra-op anesthesia management and issues during anesthesia 6. Set expectations for post-procedure period 7. Allowed opportunity for questions and acknowledgement of understanding. Meds Name Total lidocaine 2% (mg) injection 100 mg propofol 10 mg/mL injection 20 mg propofol 10 mg/mL infusion 467.89 mg Lactated Ringers Free Drip 500 mL * Agents No agents on file. * Blood No blood administrations on file. Lines, Drains, and Airways Type Details Placement Removal Peripheral IV Placement Date: 06/01 04/23; Placement Time: 07; Catheter Size: 18 G; Orientation: Left; Location: Antecubital; Site Prep: Alcohol; Technique: Anatomical landmarks; Inserted by: [facility]; Insertion Attempts: 1; Removal Date: 02/25/23 (BY PROXY) 06/29/22 0736 by Janice Pradhan RLenkaNLenka 02/25/23 0000 by Alfonso Craft RVianca Peripheral IV Placement Date: 07/01 09/21; Placement Time: 07; Catheter Size: 20 G; Orientation: Anterior, Distal, Lower, Right; Location: Forearm; Site Prep: Chlorhexidine (Preferred); Inserted by: Annelise; Insertion Attempts: 1; Removal Date: 07/25/22; Removal Time: 0954 07/25/22 0729 by Annelise Maciel, R.N. 07/25/22 0954 by Annelise Maciel, R.N. documented in this encounter Social History Tobacco [...] often do you attend chur ch or yarsani services? 1 to 4 times per year [...] and heating? Not hard at all 06/27/2022 [facility] of Occupat ional Health - Occupational [...] Sex Assigned at Male 05/30/2018 12:39 PM SALES ADMINISTRATION MANAGER Gender Identity Male 05/30/2018 12:39 PM SALES ADMINISTRATION MANAGER Sexual Orientation Straight 05/30/2018 12 :39 PM SALES ADMINISTRATION MANAGER documented as of this encounter OR Notes * Anesthesia Postprocedure Evaluation - Marie Brooks APRN, CRNA DNAP - 07/25/2022 9:16 AM CDT Patient: Alfonso Mckeon Procedure Summary Date: 07/25/22 Room / Location: Division of Gastroenterology in [place], [place] Anesthesia Start: 815 Anesthesia Stop: 911 Procedure: ENDOSCOPIC ULTRASOUND (EUS) Diagnosis: Mass Pancreas Scheduled Providers: Jasmin Taylor M.D.; Marie Brooks APRN, TAMI, DNAP Responsible Provider: Marie Brooks APRN, CRNA, GIANCARLOP Anesthesia Type: MAC ASA Status: 3 Anesthesia Type: MAC Last vitals Vitals Value Taken Time BP 131/74 07/25/22 0915 Temp 36.4 ??C 07/25/22 0912 Pulse 60 07/25/22 0916 Resp 20 07/25/22 0916 SpO2 94 % 07/25/2216 Vitals shown include unvalidated device data. Please reference Vitals flowsheet for most recent vital signs. Anesthesia Post Evaluation Patient Disposition: dismissal Cardiovascular status: hemodynamics (HR & BP) acceptable Respiratory status: patent airway with spontaneous effort Temperature: normothermic Oxygen requirements: room air Level of consciousness: awake Pain score: pain adequately controlled and/or at baseline Post Op nausea/vomiting: none Hydration status: euvolemic * Anesthesia Preprocedure Evaluation - Afshin Macedo M.D. - 07/25/2022 7:51 AM CDT Preprocedure Anesthesia & H&P Assessment Procedure Summary Date/Time: 07/25/22744 Scheduled providers: Jasmin Taylor M.D.; Marie Brooks APRN, CRNA, DNAP Procedure: ENDOSCOPIC ULTRASOUND (EUS) Diagnosis: Mass Pancreas [K86.89] Location: Division of Gastroenterology in [place], [place] Pertinent components of the patient's history including current problem list, medical history, surgical history, family history, social history, medications and allergies were reviewed. Present illness and pre-op diagnosis were confirmed. The planned surgery / procedure was verified with the patient / legal guardian. The patient's general health condition remains unchanged RELEVANT COMORBID CONDITIONS CV (+) Persistent Atrial Fibrillation OBJECTIVE PHYSICAL EXAMINATION Airway (HEENT) Mallampati: II Cardiovascular Rhythm: Regular Pulmonary Pulmonary Assessment: Clear General / Constitutional Constitutional Assessment: Overweight ASSESSMENT / PLAN ANESTHESIA PLAN ASA: 3 Anesthesia Plan: MAC Patient seen and allergies reviewed, anesthesia plan and risks discussed directly with patient /legal guardian or through an restaurant hostess. The use of blood products not discussed Approval to Proceed: approved for anesthesia Pacemaker. documented in this encounter Plan of Treatment Not on file documented as of this encounter Visit Diagnoses Not on filedocumented in this encounter Administered Medications Inactive Administered Medications - up to 3 most recent administrations Medication Order MAR Action Action Date Dose Rate Site lactated ringers intravenous, Continuous Infusion: Per Instructions PRN, Starting on Sat07/25/22 at 0816, Anesthesia Intra-op New Bag 07/25/2022 8:16 AM CDT lidocaine (PF) (cardiac) injection intravenous, As needed, Starting on Sat07/25/22 at 0819, Anesthesia Intra-op Given 07/25/2022 8:27 AM CDT 60 mg Given 07/25/2022 8:19 AM CDT 40 mg propofol 10 mg/mL infusion (DIPRIVAN) intravenous, Continuous Infusion: Per Instructions PRN, Starting on Sat07/25/22 at 0821, Anesthesia Intra-op Rate/Dose Change 07/25/2022 8:42 AM CDT 100 mcg/kg/min 62.04 mL/hr New Bag 07/25/2022 8:21 AM CDT 125 mcg/kg/min 77.55 mL/ hr propofoL injection (DIPRIVAN) intravenous, As needed, Starting on Sat07/25/22 at 0820, Anesthesia Intra-op Given 07/25/2022 8:28 AM CDT 10 mg Given 07/25/2022 8:20 AM CDT 10 mg documented in this encounter
--- OUTSIDE RECORDS SUMMARY | 2023-05-04 12:42 | XMS_ITS | Encounter Summary ---
Author Name Unknown Organization [facility] Address [address] [place] [address] Care Team Providers Care Tab Machine Operator Name Role Phone Unavailable Primary Care Provider Unavailabl e Encounter Details Date Type Department Care Team (Latest Contact Info) Description 08/10/2022 Orders Only Division of Gastroenterology in [place], [place] [address] [place] [address] Jose Martinez M.D. [address] [address] [place] [phone] Mass Pancreas (Primary Dx) Social History Tobacco Use Types [...] any clubs o r organizations such as sikhism groups, unions, fraternal or athletic groups, or [...] and heating? Not hard at all 06/27/2022 [facility] of Occupat ional Health - Occupational [...] Sex Assigned at Male 05/30/2018 12:39 PM SURFACE PLATE INSPECTOR Gender Identity Male 05/30/2018 12:39 PM SURFACE PLATE INSPECTOR Sexual Orientation Straight 05/30/2018 12 :39 PM SURFACE PLATE INSPECTOR documented as of this encounter Plan of Treatment Not on file documented as of this encounter Visit Diagnoses Diagnosis Mass Pancreas- Primary documented in this encounter
--- OUTSIDE RECORDS SUMMARY | 2023-05-04 12:42 | XMS_ITS | Encounter Summary ---
Author Name Unknown Organization [facility] Address [address] [place] [address] Care Team Providers Care Marketing Graphics Specialist Name Role Phone Unavailable Primary Care Provider Unavailabl e Reason for Visit * Reason Comments END EST * Outpatient (Routine) - Closed Specialty Diagnoses / Procedures Referred By Robles t Referred To Contact Endocrinology Diagnoses Osteoporosis Asa Enriquez M.D. [address] [place] [phone] [facility] Referral ID Status Reason Start Date Expiration Date Visits Re quested Visits Authorized [id number] Closed 04/25/2022 04/24/2025 1 1 Encounter Details Date Type Department Care Team ([facility] st Contact Info) Description 06/29/2022 9:30 AM CDT Office Visit Division of Endocrinology in [place], [place] [address] [place] [phone] Asa Enriquez M.D. [address] [place] [phone] Osteoporosis Social History Tobacco Use Types Packs/Day Years [...] 06/27/2022 How often do you attend chur or lutheran services? 1 to 4 times per year 06/27/2022 Do you belong to any clubs o r organizations such as zoroastrian groups, unions, fraternal or athletic groups, or [...] and heating? 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 - 06/29/2022 1:37 PM CDT [place] medical records and laboratory results reviewed. The patient's serum phosphorus was normal at 3.2 mg/dL, with parathyroid hormone increased at 95 pg/mL (normal, 15 to 65). In light of this finding, no additional recommendations for now. Asa Enriquez M.D. CT CT Job ID: [id number] documented in this encounter Consult Notes * Asa Enriquez M.D. - 06/29/2022 9:30 AM CDT SUBJECTIVE REFERRAL SOURCE Self-referred. REASON FOR CONSULT Followup of moderate osteopenia, without recent fractures. HISTORY OF PRESENT ILLNESS The patient is a very pleasant 82-year-old male who returns for evaluation and managementof moderate osteopenia, without recent fractures. I last saw the patient for this issue on 2021. The patient's bone density test here on May 15, 2022, showed his lowest T- score at home to be -2.3 at his right total hip site, diagnostic of moderate osteopenia. His other hip T-scores ranged between -2.2 and positive 3.2, in the moderately osteopenic to normal bone density range. His L1-L2 lumbar spine T- score was -1.9, diagnostic of moderate osteopenia. No previous values are given for comparison. The patient has not had recent falls or clinical fractures. The patient continues Prolia 60 mg by subcutaneous injection twice a year. This agrees with him andseems to be maintaining his bone density over time. When he previously took Reclast, he did not do as well. The patient is preferring to continue with Prolia for now, as this may likely further increase bone density over time. The patient continues excellent calcium and vitamin D intake. He normally takes calcium citrate 600mg one tablet each day, without a specific vitamin D supplement for now. His serum 25-hydroxyvitamin D is pending. The patient's laboratory studies show normal serum calcium, phosphorus, creatinine, eGFR, and increased parathyroid hormone at 95 pg/mL (normal, 15 to 65). The patient did not take his calcium or vitamin D supplements on the day of his blood draw. No apparent intercurrent illness. The patient is here for a variety of appointments today, including for followup of prostate cancer. The patient is due to receive Prolia at 5:15 p.m. ASSESSMENT / PLAN #1 Moderate osteopenia, without recent fractures The patient will continue Prolia 60 mg by subcutaneous injection twice a year for another year. Perhaps next year, he may benefit from switching to Reclast 5 mg intravenously over 15 minutes once a year to maintain his bone density at the higher level. In the meantime, he will continue with excellent calcium and vitamin D intake. His total daily calcium intake should approximate 1200 mg elemental calcium, with vitamin D intake of at least 800 International Units each day. He appears to be achieving these goals through his current diet and supplements. His serum 25-hydroxyvitamin D is pending. He is advised to continue to use care in situations likely to provoke falls. He will be cautious when lifting more than 10-15 pounds. Walking for exercise 3-4 days each week for 30-45 minutes each day should help protect his skeletal integrity. His bone density test should be rechecked in one year.Advised him I would see him back in one year with his results. These issues were discussed in detail with the patient and his daughter, and a variety of questionsanswered during his office visit today. PATIENT EDUCATION: Learning needs assessment was performed. No learning barriers were identified. Explained diagnosis and treatment plan. Patient expressed understanding and was able to teach back. This was an E3 visit for a total time spent with the patient of 25 minutes. Asa Enriquez M.D. CT CT Job ID: [id number] documented in this encounter Plan of Treatment Not on file documented as of this encounter Visit Diagnoses Diagnosis Osteoporosis documented in this encounter
--- OUTSIDE RECORDS SUMMARY | 2023-05-04 12:42 | XMS_ITS | Encounter Summary ---
Author Name Unknown Organization [facility] Address [address] [place] [address] Care Team Providers Care Tearoom Host Name Role Phone Unavailable Primary Care Provider Unavailabl e Reason for Referral * MRI/CAT/PET Scan (Routine) - Closed Specialty Diagnoses / Procedures Referred By Contac t Referred To Contact Radiology Diagnoses Carcinoma Renal Cell Left (HCC) Procedures CT Chest with IV Contrast CT Chest without IV Contrast Effie Rodriguez APRN, C.N.P. [address] [place] [phone] [facility] Referral ID Status Reason Start Date Expiration Date Visits Re quested Visits Authorized [id number] Closed 2021 2022 1 1 * MRI/CAT/PET Scan (Routine) - Closed Specialty Diagnoses / Procedures Referred By Contac t Referred To Contact Radiology Diagnoses Carcinoma Renal Cell Left (HCC) Procedures CT Abdomen Pelvis with IV Contrast CT Abdomen Pelvis without and with IV Contrast Effie Rodriguez APRN, C.N.P. [address] [place] [phone] [facility] Referral ID Status Reason Start Date Expiration Date Visits Re quested Visits Authorized [id number] Closed 2021 2022 1 1 Reason for Visit * MRI/CAT/PET Scan (Routine) - Closed Specialty Diagnoses / Procedures Referred By Robles rivas Referred To Contact Radiology Diagnoses Carcinoma Renal Cell Left (HCC) Procedures CT Abdomen Pelvis with IV Contrast CT Abdomen Pelvis without and with IV Contrast Effie Rodriguez APRN, C.N.P. [address] [place] [phone] [facility] Referral ID Status Reason Start Date Expiration Date Visits Re quested Visits Authorized [id number] Closed 2021 2022 1 1 Encounter Details Date Type Department Care Team (Latest Contact Info) Description 06/29/2022 7:24 AM CDT - 06/29/2022 11:59 PM CDT Hospital Encounter Department of Radiology, [facility], in [place], [place] [address] [place] [phone] Effie Rodriguez APRN, C.N.P. [address] [place] [phone] Carcinoma Renal Cell Left (HCC) Discharge Disposition: [...] any clubs o r organizations such as baptism groups, unions, fraternal or athletic groups, or [...] and heating? Not hard at all 06/27/2022 [facility] of Occupat ional Health - [...] Sex Assigned at Male 05/30/2018 12:39 PM ICT TEACHER Gender Identity Male 05/30/2018 12:39 PM ICT TEACHER Sexual Orientation Straight 05/30/2018 12 :39 PM ICT TEACHER documented as of this encounter Medications at [...] 0 03/30/20162022 documented as of this encounter Nursing Notes * Janice Pradhan RLenkaN. - 06/29/2022 8:30 AM CDT Patient does not want IV kept in for his infusion today at 1715 LAC * Oneida Lao L.P.N. - 06/29/2022 8:30 AM CDT PIV flushed with 3 ml of 0.9% NACL, then capped and wrapped for infusion today. documented in this encounter Plan of Treatment Not on file documented as of this encounter Procedures Procedure Name Priority Date/Time Associated Diagnosis Comments CT ABDOMEN PELVIS WITH IV CONTRAST RAD - Routine (most inpatients and all outpatients) 06/29/2022 8:27 AM CDT Carcinoma Renal Cell Left (HCC) CT CHEST WITH IV CONTRAST RAD - Routine (most inpatients and all outpatients) 06/29/2022 8:27 AM CDT Carcinoma Renal Cell Left (HCC) documented in this encounter Results * CT Chest with IV Contrast (06/29/2022 8:27 AM CDT) Anatomical Region Laterality Modality Chest, Thoracic RST LOS, Tho racic ARZ LOS, Thoracic ARZ LOS, Thoracic FLA LOS N/A Computed Tomography, Compute d Tomography 06/29/2022 8:28 AM CDT Impressions 06/29/2022 9:10 AM CDT Stable exam including small pulmonary nodules. Narrative 06/29/2022 9:10 AM CDT EXAM: CT CHEST WITH IV CONTRAST COMPARISON: 06/16/2021 FINDINGS: There is a 5 mm nodule in the right lower lobe (3/564). This is unchanged from the prior examination. Few additional micronodules are also stable including in the right lower lobe (/) and in the left lower lobe (3/275). No new nodules. No thoracic adenopathy. No pleural [...] the abdomen, which will be reported separately. Procedure Note Karsten Pelaez M.D. - 06/29/2022 EXAM: CT CHEST WITH IV CONTRAST COMPARISON: 06/16/2021 FINDINGS: There is a 5 mm nodule in the right lower lobe (3/564). This is unchangedfrom the prior examination. Few additional micronodules are also stable including in theright lower lobe (3/202) and in the left lower lobe (3/275). No new nodules. No thoracic adenopathy. No pleural effusion. No parenchymalconsolidation. Calcified granulomas in both lungs. Stable left fissural lymph nodes.Slight fibrosis or linear atelectasis in the bases. Right apical scarring. AV pacemaker. Coronary, aortic valvular, and mitral annulus calcification.Stable ectasia of the ascending aorta measuring 45 mm. Slight cardiac enlargement. Stableprominence of the central pulmonary arteries. Degenerative changes thoracic spine. Old bilateral rib fractures. Benignbone island right 6th rib. Stable mild compression of the T9 vertebral body. Small esophageal hiatal hernia. This examination was performed in conjunction with a CT of the abdomen,which will be reported separately. IMPRESSION: Stable exam including small pulmonary nodules. Effie Rodriguez APRN, C.N.P. [facility] PRO CEDURES * CT Abdomen Pelvis with IV Contrast (06/29/2022 8:27 AM CDT) Anatomical Region Laterality Modality Abdomen, Pelvis, Abdominal R ST LOS, Abdominal ARZ LOS, Abdominal FLA LOS N/A Computed Tomograp hy, Computed Tomography 06/29/2022 8:27 AM CDT Impressions 06/29/2022 9:23 AM CDT Enhancing nodule in the pancreas is better seen than on the previous exam and concerning for metastatic disease. No additional findings concerning for recurrent or metastatic disease. Narrative 06/29/2022 9:23 AM CDT EXAM: ??CT ABDOMEN PELVIS WITH IV CONTRAST COMPARISON: ??06/16/2021 FINDINGS: ??Postoperative changes of left partial nephrectomy. There is a 1.6 cm enhancing nodule in the head of the pancreas which is better visualized than on the previous exam, suspicious for metastatic disease (series 3 image 69). No additional findings in the abdomen or pelvis suspicious for metastatic disease. Hepatic, splenic and bilateral renal cysts. Diverticulosis. Cholecystectomy. Vascular calcifications. Stable Paget's disease of the left femur. Degenerative changes both hips. Hypertrophic changes in the spine. This examination was performed in conjunction with a CT of the chest, which will be reported separately. Procedure Note Santos Harris M.D. - 06/29/2022 EXAM: CT ABDOMEN PELVIS WITH IV CONTRAST COMPARISON: 06/16/2021 FINDINGS: Postoperative changes of left partial nephrectomy. There is a1.6 cm enhancing nodule in the head of the pancreas which is better visualized than on the previousexam, suspicious for metastatic disease (series 3 image 69). No additional findings in theabdomen or pelvis suspicious for metastatic disease. Hepatic, splenic and bilateral renal cysts. Diverticulosis.Cholecystectomy. Vascular calcifications. Stable Paget's disease of the left femur. Degenerativechanges both hips. Hypertrophic changes in the spine. This examination was performed in conjunction with a CT of the chest,which will be reported separately. IMPRESSION: Enhancing nodule in the pancreas is better seen than on the previous examand concerning for metastatic disease. No additional findings concerning forrecurrent or metastatic disease. Effie Rodriguez APRN, C.N.P. IMG CT PRO CEDURES documented in this encounter Visit Diagnoses Diagnosis Carcinoma Renal Cell Left (HCC) documented in this encounter Administered Medications Inactive Administered Medications - up to 3 most recent administrations Medication Order MAR Action Action Date Dose Rate Site iohexoL 300 mg iodine/mL solution 1-200 mL (OMNIPAQUE) 1-200 mL, intravenous, Once in imaging, contrast, Starting on Sat06/29/22 at 0735, For 1 dose, Imaging Protocol Orders, Dose per Radiant Medication Guidelines Given 06/29/2022 8:18 AM CDT 140 mL sodium chloride (PF) 0.9 % injection 1-100 mL 1-100 mL, intravenous, Once, On Sat06/29/22 at 0745, For 1 dose, Imaging Protocol Orders Given 06/29/2022 8:18 AM CDT 50 mL documented in this encounter
--- OUTSIDE RECORDS SUMMARY | 2023-05-04 12:42 | XMS_ITS | Encounter Summary ---
Author Name Unknown Organization [facility] Address [address] [place] [address] Care Team Providers Care Corporate Security Manager Name Role Phone Unavailable Primary Care Provider Unavailabl e Reason for Visit * Appointment Request (Routine) - Closed Specialty Diagnoses / Procedures Referred By Robles rivas Referred To Contact Pulmonary Medicine Diagnoses Nodule Pulmonary Referral ID Status Reason Start Date Expiration Date Visits Re quested Visits Authorized [id number] Closed 04/11/2022 04/11/2023 1 1 Encounter Details Date Type Department Care Team (Late st Contact Info) Description 06/29/2022 4:30 PM CDT Office Visit Division of Pulmonary Medicine in [place], [place] [address] [place] [phone] Zuleika Weaver M.D. Nodules Pulmonary Multiple (Primary Dx); Smoking Tobacco Use Personal History; Cancer Renal Cell Carcinoma Personal History Social History Tobacco Use Types Packs/Day Years [...] How often do you attend chur or mosque services? 1 to 4 times per year 06/27/2022 Do you belong to any clubs o r organizations such as roman catholic groups, unions, fraternal or athletic groups, or [...] and heating? Not hard at all 06/27/2022 [facility] - Occupational Stress Questionnaire Answer Date [...] place to sleep or slept in a group home (including now)? 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 - 06/29/2022 4:30 PM CDT SUBJECTIVE CHIEF COMPLAINT / REASON FOR VISIT Followup pulmonary nodules HISTORY OF PRESENT ILLNESS Mr. Mckeon is an 82 year old man with a past medical history significant for multiple pulmonary nodules, previous tobacco use ([id number], quit 1989), renal cell carcinoma s/p partial nephrectomy(01/2014), osteopenia, Paget's disease, and mild hyperparathyroidism, who returns to Pulmonary Clinic today for follow-up of pulmonary nodules. He has no respiratory concerns today. The following portions of the patient's history were reviewed and updated as appropriate: allergies, current medications, family history, medical history, social history, surgical history and problemlist. REVIEW OF SYSTEMS All other systems were reviewed and are negative other than what was noted in the HPI. OBJECTIVE PHYSICAL EXAM SpO2 94% Gen: well appearing, well-nourished male sitting in exam chair in no acute distress Lungs: respirations unlabored on RA ASSESSMENT / PLAN Mr. Mckeon is an 82 year old man with a past medical history significant for multiple pulmonary nodules, previous tobacco use ([id number], quit 1989), renal cell carcinoma s/p partial nephrectomy(01/2014), osteopenia, Paget's disease, and mild hyperparathyroidism, who returns to Pulmonary Clinic today for follow-up of pulmonary nodules. #1 Multiple small pulmonary nodules, stable #2 Previous 12 pack year smoking history #3 History of RCC s/p partial nephrectomy in 2013 #4 Pancreas nodule We reviewed today's chest CT which showed stability in his small pulmonary nodules in comparison to05/2021. He has now had at least 2 years in stability of these nodules. I put in a return visit in one year's time from now as a placeholder, as there are already plans for CT scan of the chest. However, if this is again stable he could be followed by his Urology team. I spent 15 minutes with the patient, greater than 50% of which was dedicated to education and counseling about the above concerns. Case to be discussed with Dr. Koenig. documented in this encounter Plan of Treatment Not on file documented as of this encounter Visit Diagnoses Diagnosis Nodules Pulmonary Multiple- Primary Smoking Tobacco Use Personal History Cancer Renal Cell Carcinoma Personal History documented in this encounter
--- OUTSIDE RECORDS SUMMARY | 2023-05-04 12:42 | XMS_ITS | Encounter Summary ---
Author Name Unknown Organization [facility] Address [address] [place] [address] Care Team Providers Care Flask Maker Name Role Phone Unavailable Primary Care Provider Unavailabl e Reason for Visit * Episode Based Medications (Routine) - Closed Specialty Diagnoses / Procedures Referred By Robles t Referred To Contact Diagnoses Osteoporosis Asa Enriquez M.D. [address] [place] [phone] [place] [address] [place] [phone] Referral ID Status Reason Start Date Expiration Date Visits Re quested Visits Authorized [id number] Closed 04/25/2022 04/25/2023 99 99 Encounter Details Date Type Department Care Team (Late st Contact Info) Description 06/29/2022 5:15 PM CDT Infusion Department of Infusion Therapy in [place], [place] [address] [place] [phone] Asa Enriquez M.D. [address] [place] [phone] Osteoporosis (Primary Dx) Social History Tobacco Use [...] often do you attend chur ch or oriental orthodox services? 1 to 4 times per year 06/27/2022 Do you belong to any clubs o r organizations such as mosque groups, unions, fraternal or athletic groups, or [...] all 06/27/2022 [facility] of Occupat ional Health - Occupational Stress [...] place to sleep or slept in a residential (including now)? 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 Gender Identity Male 05/30/2018 12:39 PM COTTON CHOPPER Sexual Orientation Straight 05/30/2018 12 :39 PM COTTON CHOPPER documented as of this encounter Last Filed Vital Signs Vital Sign Reading Time Taken Comments Blood Pressure 149/69 06/29/2022 5:41 PM CDT Pulse 79 06/29/2022 5:41 PM CDT Temperature 36.9 ??C (98.4 ??F) 06/29/2022 5:41 PM CD T Respiratory Rate 16 06/29/2022 5:41 PM CDT Oxygen Saturation - - Inhaled Oxygen Concentration [...] MAR Action Action Date Dose Rate Site denosumab injection 60 mg (PROLIA) 60 mg, subcutaneous, Once, On Sat06/29/22 at 1730, For 1 dose, Restriction Criteria (Pharmacy will review and approve if criteria met): Prescribed by Endocrinology Given 06/29/2022 5:44 PM CDT 60 mg Left Upper Arm (Back) documented in this encounter
--- OUTSIDE RECORDS SUMMARY | 2023-05-04 12:42 | XMS_ITS | Encounter Summary ---
Author Name Unknown Organization [facility] Address [address] [place] [address] Care Team Providers Care Cost Engineer Name Role Phone Unavailable Primary Care Provider Unavailabl e Encounter Details Date Type Department Care Team (Latest Contact Info) Description 06/28/2022 7:15 AM CDT Clinical Communication Virtual Review in [place], [place] [address] [place] [address] Social History Tobacco Use Types Packs/Day Years [...] week 06/27/2022 How often do you attend [facility] or baptism services? 1 to 4 times [...] heating? Not hard at all 06/27/2022 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
--- OUTSIDE RECORDS SUMMARY | 2023-05-04 12:42 | XMS_ITS | Encounter Summary ---
Author Name Unknown Organization [facility] Address [address] [place] [address] Care Team Providers Care Flavor Maker Name Role Phone Unavailable Primary Care Provider Unavailabl e Encounter Details Date Type Department Care Team (Latest Contact Info) Description 06/29/2022 6:37 AM CDT - 06/29/2022 7:23 AM CDT Hospital Encounter Department of Laboratory Medicine and Pathology, [facility] in [place], [place] [address] [place] [address] Effie Rodriguez APRN, C.N.P. [address] [place] [address] Carcinoma Renal Cell Left (HCC); Osteoporosis Discharge [...] often do you attend chur ch or christianity services? 1 to 4 times per year 06/27/2022 Do you belong to any clubs o r organizations such as yazidi groups, unions, fraternal or athletic groups, or [...] and heating? 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 0 6 09/23/2022 fluticasone (FLONASE) 50 mcg/actuation nasal spray Administer into affected nostril(s) 2 (two) times a day. 0 07/17/2017 02/20/2023 tamsulosin (FLOMAX) 0.4 mg 24 hr capsule Daily 0 04/25/2021 02/20/2023 triamcinolone (KENALOG) 0.1 % cream as needed. 0 03/30/2016 09/23/2022 documented as of this encounter Plan of Treatment Not on file documented as of this encounter Procedures Procedure Name Priority Date/Time Associated Diagnosis Comments 25-HYDROXYVITAMIN D2 AND D3, S Routine 06/29/2022 6:49 AM CDT Osteoporosis PHOSPHORUS (INORGANIC), S Routine 06/29/2022 6:49 AM CDT Osteoporosis PARATHYROID HORMONE (PTH), S Routine 06/29/2022 6:49 AM CDT Osteoporosis BASIC METABOLIC PANEL, S/P Routine 06/29/2022 6:49 AM CDT Carcinoma Renal Cell Left (HCC) documented in this encounter Results * 25-Hydroxyvitamin D2 and D3 (06/29/2022 6:49 AM CDT) 25-Hydroxy D2 <4.0 ng/mL 06/30/2022 12:23 AM CDT [facility] 25-Hydroxy D3 25 ng/mL 06/30/2022 12:23 AM CDT [facility] 25-Hydroxy D Total 25 ng/mL 2022 12:23 AM CDT [facility] Comment: ----REFERENCE VALUE---- 25-HYDROXY D TOTAL (D2+D3) Optimum levels in the healthy population are 20-50, patients with bone disease may benefit from higher levels within this range. ----ADDITIONAL INFORMATION---- This test was developed and its performance characteristics determined by [facility] in a manner consistent with CLIA requirements. This test has not been cleared or approved by the U.S. Food and Drug Administration. Blood (Blood, Venous) 06/29/2022 6:49 AM CDT 06/29/2022 9:16 AM CDT Asa Enriquez M.D. LAB BLOOD ADD-ON Performing Organization Address City/[facility]/ZIP Co de Phone Number [facility] [address] [place] [address] [facility] [address] [place] [address] * Phosphorus Inorganic (06/29/2022 6:49 AM CDT) Phosphorus (Inorganic), S 3.2 2.5 - 4.5 mg/dL 06/29/2022 7:58 AM CDT DT Blood (Blood, Venous) 06/29/2022 6:49 AM CDT 06/29/2022 7:26 AM CDT Asa Enriquez M.D. LAB BLOOD ADD-ON [facility] [address] [place] [address], [facility] [address] [place] [address] * (ABNORMAL) Parathyroid Hormone (PTH) (06/29/2022 6:49 AM CDT) Parathyroid Hormone (PTH), S 95(H) 15 - 65 pg/mL 06/29/2022 7:58 AM CDT DT Blood (Blood, Venous) 06/29/2022 6:49 AM CDT 06/29/2022 7:26 AM CDT Asa Enriquez M.D. LAB BLOOD ADD-ON [facility] [address] [place] [address], [facility] DTL [facility] [address] [place] [address] * Basic Metabolic Panel (06/29/2022 6:49 AM CDT) Pathologist [facility] Potassium, S 4.1 3.6 - 5.2 mmol/L 06/29/2022 7:58 AM CDT DTL Sodium, S 141 135 - 145 mmol/L 06/29/2022 7:58 AM CDT DTL Chloride, S 105 98 - 107 mmol/L 06/29/2022 7:58 AM CDT DTL Bicarbonate, S 28 22 - 29 mmol/L 06/29/2022 7:58 AM CDT DTL Anion Gap 8 7 - 15 06/29/2022 7:58 AM CDT DTL BUN (Blood Urea Nitrogen), S 14 8 - 24 mg/dL 06/29/2022 7:58 AM CDT DTL Creatinine 0.95 0.74 - 1.35 mg/dL 06/29/2022 7:58 AM CDT DTL Estimated GFR (eGFR) 79 >=60 mL/min/BSA 06/29/2022 7:58 AM CDT DTL Comment: Estimated GFR calculated using the 2020 CKD_EPI creatinine equation. Calcium, Total, S 9.2 8.8 - 10.2 mg/dL 06/29/2022 7:58 AM CDT DTL Glucose, S 113 70 - 140 mg/dL 06/29/2022 7:58 AM CDT DTL Blood (Blood, Venous) 06/29/2022 6:49 AM CDT 06/29/2022 7:26 AM CDT Effie Rodriguez APRN, C.N.P. LAB BLOOD ADD-ON [facility] [place] [address], [facility] DTL [facility] [address] [place] [address] documented in this encounter Visit Diagnoses Diagnosis Carcinoma Renal Cell Left (HCC) Osteoporosis documented in this encounter
--- OUTSIDE RECORDS SUMMARY | 2023-05-04 12:42 | XMS_ITS | Encounter Summary ---
Author Name Unknown Organization [facility] Address [address] [place] [address] Care Team Providers Care Journeyman Glazier Name Role Phone Unavailable Primary Care Provider Unavailabl e Encounter Details Date Type Department Care Team (Latest Contact Info) Description 07/31/2022 Orders Only Division of Gastroenterology in [place], [place] [address] [place] [address] Jose Martinez M.D. [address] [address] [place] [phone] Mass Pancreas (Primary Dx) Social History Tobacco [...] often do you attend chur ch or uatsdin services? 1 to 4 times per year 06/27/2022 Do you belong to any clubs o r organizations such as baptist groups, unions, fraternal or athletic groups, or [...] place to sleep or slept in a penitentiary (including now)? 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
--- OUTSIDE RECORDS SUMMARY | 2023-05-04 12:43 | XMS_ITS | Encounter Summary ---
Author Name Unknown Organization [facility] Address [address] [place] [address] Care Team Providers Care Vest Presser Name Role Phone Unavailable Primary Care Provider Unavailabl e Reason for Visit * Reason Onset Date Comments DXA Results 05/31/2022 Encounter Details Date Type Department Care Team (Latest Contact Info) Description 05/31/2022 Clinical Communication Division of Endocrinology in [place], [place] [address] [place] [address] Asa Enriquez M.D. [address] [place] [address] DXA Results Social History Tobacco Use Types Packs/Day Years [...] often do you attend chur ch or confucianist services? 1 to 4 times per year [...] and heating? 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
--- OUTSIDE RECORDS SUMMARY | 2023-05-04 12:43 | XMS_ITS | Encounter Summary ---
Author Name Unknown Organization [facility] Address [address] [place] [address] Care Team Providers Care Pig Sticker Name Role Phone Unavailable Primary Care Provider Unavailabl e Reason for Visit * Appointment Request (Routine) - Closed Specialty Diagnoses / Procedures Referred By Robles rivas Referred To Contact Family Medicine Diagnoses Monoclonal Antibody Therapy (COVID-19) Referral ID Status Reason Start Date Expiration Date Visits Re quested Visits Authorized [id number] Closed 05/24/2022 05/24/2023 1 1 Encounter Details Date Type Department Care Team (Late st Contact Info) Description 05/24/2022 4:00 PM SUPERVISOR PLATE FORMING Telemedicine Department of Family Medicine, [address] in [place] [id number] [place] [address] Mindi Dickey APRN, C.N.P., D.N.P. [address] [place] [phone] COVID-19 Infection (Primary Dx) Social History Tobacco Use Types Packs/Day Years Used Date Smoking Tobacco: Former Nutrition Answer Date Recorded Nutrition: EVOO Fat Source Unknown 05/21 Nutrition: Servings of Fruits/Vegetables per Day Not on file 05/21/2020 Dental Answer Date Recorded Dental: Regular Dentist Unknown 05/21/19 21 Sex and Gender Information Value Date Recorded Sex Assigned at Male 05/30/2018 12:39 PM SUPERVISOR PLATE FORMING Gender Identity Male 05/30/2018 12:39 PM SUPERVISOR PLATE FORMING Sexual Orientation Straight 05/30/2018 12 :39 PM SUPERVISOR PLATE FORMING documented as of this encounter Progress Notes * Mindi Dickey APRN, C.N.P., D.N.P. - 05/24/2022 4:00 PM CST [place] Covid Care Team Note SUBJECTIVE CHIEF COMPLAINT / REASON FOR VISIT Mr. Alfonso Mckeon is a 81 y.o. male who presents for evaluation of covid 19 positive and covid treatment eligibility. Consult conducted via real-time audio/visual technology by Mindi Dickey APRN, Butch.N.P., D.N.P.in [facility] [place] to the patient in patient's home. Date of positive COVID test: 2 Date of symptom onset (Day 0): 05-24-22 Reported symptoms: 05-23-22 BMI Readings from Last 1 Encounters: 06/22/21 30.67 kg/m?? No Score Exists Renal function/dosing Lab Results Component Value Date EGFRNONBLKAA 63 06/16/2021 POCEGFRNONAA 80 06/16/2021 EGFRBLKAA 73 06/16/2021 POCEGFRBLKAA >90 06/16/2021 Treatment Options Discussion Does the problem list include diagnoses that suggest severe liver disease, such as ascites, hepaticencephalopathy, esophageal varices, and end stage liver disease? No. Continue to assess eligibilityfor Paxlovid or Remdesivir. Do labs include abnormalities that suggest acute liver disease (AST/ALT > 10x Upper Limit Normal)? AST, Total, S Date Value Ref Range Status 06/01/2015 21 8 - 48 U/L Final Aspartate Aminotransferase (AST), S Date Value Ref Range Status 2021 16 8 - 48 U/L Final EXT Aspartate Aminotransferase, P Date Value Ref Range Status 06/23/2018 15 2 - 40 IU/L Final Alanine Aminotransferase (ALT), S Date Value Ref Range Status 2021 11 7 - 55 U/L Final No. Patient remains eligible for Remdesivir Is the patient prescribed Plaquenil (Generic Name: Hydroxychloroquine)? No. Patient is eligible for Remdesivir Remdesivir is an IV medication that stops the replication of the virus that causes COVID-19 and hasbeen shown to reduce the risk for hospitalization by 89%. You would receive an IV infusion once daily for 3 days in a row, and each appointment would take up to an hour. Side effects are uncommon but could include infusion reactions, such as low blood pressure, nausea,vomiting, sweating, and shivering. Increases in liver enzymes are rare and unlikely to occur at thedoses used to treat COVID-19. We have been prescribing IV remdesivir for the treatment of severe COVID-19 in hospitalized patients since the beginning of the pandemic. The infusion and any associated costs with the infusion will be billed to your insurance company. This medication is not likely to interfere with any regular medications you may be taking. Given how this medication helps your body it is better to receive this medication as soon as possible if youelect this treatment option. Treatment Decision: The patient accepts treatment. IV Remdesivir: The patient consents to therapy. The IV therapy plan has been ordered per nurse protocol to the following [facility]: [facility] Side Effects and Fact Sheet for Patients, Parents and Caregivers Tell your healthcare provider right away if you have any urgent side effects. For non-urgent side effects or side effects that bother you or do not go away please contact the care team coordinating your COVID care during business hours. This may be your primary care provider, your COVID care team or your remote monitoring nurse team, which ever is applicable. If you have symptoms of a severe allergic reaction, including difficulty breathing or swelling of the lips, tongue or throat, severe dizziness, lightheadedness or weakness,call 911 and go to the Emergency Department. If you have continued questions please reach out to the team coordinating your clinical care, either a COVID-19 focused team or your primary care provider's office. The Fact Sheet for Patients, Parents and Caregivers was provided by the online Portal and will beprovided to patient/caregiver at the infusion therapy center or pharmacy. Remote Patient Monitoring: Is the patient immunocompromised and do they have 5 or more days left of isolation? No. You do not qualify for Remote Patient Monitoring. You may choose to accept or refuse any of the available treatments reviewed today. You may also stop treatment at anytime. Your choice will not change your standard medical care. Regardless of your choice, you should continue to self-isolate and use infection control measures (e.g., wear mask, isolate, social distance, avoid sharing personal items, and frequent handwashing) according to CDC guidelines. In addition, regardless of whether you have had any of the treatments we've discussed, if you develop worsening symptoms of COVID-19, you should reach out to your primary care provider or present to the nearest emergency department for evaluation. The following portions of the patient's history were reviewed and updated as appropriate: allergies, current medications, family history, medical history, social history, surgical history and problemlist. COVID-19 Isolation Beginning of isolation (day 0) is considered the first day of onset of symptoms. Isolate at home with minimal to no contact with other people living in your house until all of the following are true: It has been at least 5 days since your symptoms started. Or, if you have no symptoms, it has been at least 5 days since your positive COVID-19 test. If you are immune compromised, isolate for at least 10 days. You are fever free for at least 24 hours without the use of fever-reducing medications. Wear a mask everywhere you go for an additional 5 days. Continue to wear a mask in indoor spaces when community transmission is high. What should you tell your close contacts who are NOT UP TO DATE WITH VACCINATIONS? Quarantine for 5 days after last contact. After quarantine, wear a mask for 5 more days. Continue to wear a mask in indoor spaces when community transmission is high. Get tested for COVID-19 five days after the close contact exposure. If they develop symptoms, they need to quarantine and get tested for COVID-19. What should you tell your close contacts if they ARE UP TO DATE WITH VACCINATION? Wear a mask for 10 days following the close contact exposure. They do not need to quarantine if they do not have symptoms. Get tested for COVID-19 five days after the close contact exposure. If they develop symptoms, they need to quarantine and get tested for COVID-19. Defining Up to Date with Vaccinations Received a Booster dose as scheduled after completion of an mRNA (Moderna or Tapatap) or Junito andMicronoteshnson vaccine series. REVIEW OF SYSTEMS Pertinent positive and negative review of systems noted in the HPI. OBJECTIVE PHYSICAL EXAM There were no vitals filed for this visit. Physical Exam No physical exam performed, this was a phone interview ASSESSMENT / PLAN #1 COVID-19 Infection Other orders - remdesivir (VEKLURY) 200 mg in NaCl 0.9% 140 mL IVPB (VEKLURY); 200 mg, intravenous, at 280 mL/hr, Administer over 30 Minutes, Once, For 1 doseIndications: COVID-19 - remdesivir (VEKLURY) 100 mg in NaCl 0.9% 120 mL IVPB (VEKLURY); 100 mg, intravenous, at 240 mL/hr, Administer over 30 Minutes, Once, For 1 doseIndications: COVID-19 Treatment Plan After discussing the risks, benefits, and alternatives to treatment, Alfonso Mckeon elects: IV Remdesivir. The patient consents to therapy. The IV therapy plan has been ordered per nurse protocol to the following [facility]: [facility] Side Effects and Fact Sheet for Patients, Parents and Caregivers Tell your healthcare provider right away if you have any urgent side effects. For non-urgent side effects or side effects that bother you or do not go away please contact the care team coordinating your COVID care during business hours. This may be your primary care provider, your COVID care team or your remote monitoring nurse team, which ever is applicable. If you have symptoms of a severe allergic reaction, including difficulty breathing or swelling of the lips, tongue or throat, severe dizziness, lightheadedness or weakness,call 911 and go to the Emergency Department. If you have continued questions please reach out to the team coordinating your clinical care, either a COVID-19 focused team or your primary care provider's office. The Fact Sheet for Patients, Parents and Caregivers will be provided to patient/caregiver at the infusion therapy center or pharmacy. Response to Education: patient/caller able to teach back Caller agreeable to plan of care: yes I personally spent 15 minutes in care of the patient today. Time includes both non face to face andface to face patient care. Mindi Dickey APRN, C.N.P., D.N.P. [place] COVID Care Team [facility] RVISOR PLATE FORMING documented in this encounter Plan of Treatment Not on file documented as of this encounter Procedures Procedure Name Priority Date/Time Associated Diagnosis Comments EXTM HOME SARS CORONAVIRUS-2 (COVID-19) ANTIGEN, V Routine 05/23/2022 documented in this encounter Results * (ABNORMAL) EXT Home SARS Coronavirus-2 (COVID-19) Antigen, Varies (05/23/2022) EXT Home SARS-CoV-2 Antigen Presumptive Positive(A) Presumptive Negative OTHER (SPECIFY IN SALES ACCOUNT REPRESENTATIVE) Swab 05/23/2022 Historical Provider LAB MICROBIOLOGY - G ENERAL ORDERABLES OTHER (SPECIFY IN SALES ACCOUNT REPRESENTATIVE) N/A documented in this encounter Visit Diagnoses Diagnosis COVID-19 Infection- Primary documented in this encounter Additional Health Concerns Infection Onset Date Last Indicated Resolved Time COVID19 05/23/2022 05/23/2022 06/12/2022 5:30 AM CDT documented as of this encounter
--- OUTSIDE RECORDS SUMMARY | 2023-05-04 12:43 | XMS_ITS | Encounter Summary ---
Author Name Unknown Organization [facility] Address [address] [place] [address] Care Team Providers Care Emergency Communications Operator Name Role Phone Unavailable Primary Care Provider Unavailabl e Reason for Visit * Reason Comments Outpatient Infusion Remdesivir * Outpatient (Routine) - Authorized Specialty Diagnoses / Procedures Referred By Robles t Referred To Contact Infusion Therapy Diagnoses COVID-19 Infection REM 200mg 1 WC (Hard of Hearing) Contact is stefani Canales [phone] Procedures INF THER Mindi Dickey APRN, C.N.P., D.N.P. [address] [place] [address] [facility] [address] [place] [address] Referral ID Status Reason Start Date Expiration Date V isits Requested Visits Authorized [id number] Authorized 05/25/2022 05/25/2023 5 5 Encounter Details Date Type Department Care Team (Late st Contact Info) Description 05/26/2022 8:00 AM FRONT DESK AUXILIARY Infusion Department of Infusion Therapy in [place] [address] [place] [address] Mindi Dickey APRN, C.N.P., D.N.P. [address] [place] [address] COVID-19 Infection (Primary Dx) Social History Tobacco Use Types Packs/Day Years Used Date Smoking Tobacco: Former Nutrition Answer Date Recorded Nutrition: EVOO Fat Source Unknown 05/21 Nutrition: Servings of Fruits/Vegetables per Day Not on file 05/21/2020 Dental Answer Date Recorded Dental: Regular Dentist Unknown 05/21/19 21 Sex and Gender Information Value Date Recorded Sex Assigned at Male 05/30/2018 12:39 PM FRONT DESK AUXILIARY Gender Identity Male 05/30/2018 12:39 PM FRONT DESK AUXILIARY Sexual Orientation Straight 05/30/2018 12 :39 PM FRONT DESK AUXILIARY documented as of this encounter Last Filed Vital Signs Vital Sign Reading Time Taken Comments Blood Pressure 168/78 05/26/2022 7:57 AM FRONT DESK AUXILIARY Pulse 84 05/26/2022 7:57 AM FRONT DESK AUXILIARY Temperature 37 ??C (98.6 ??F) 05/26/2022 7:57 AM FRONT DESK AUXILIARY Respiratory Rate 18 05/26/2022 7:57 AM FRONT DESK AUXILIARY Oxygen Saturation 94% 05/26/2022 7:57 AM FRONT DESK AUXILIARY Inhaled Oxygen Concentration - - Weight - - Height - - Body Mass Index - - documented in this encounter Plan of Treatment Not on file documented as of this encounter Visit Diagnoses Diagnosis COVID-19 Infection- Primary documented in this encounter Administered Medications Inactive Administered Medications - up to 3 most recent administrations Medication Order MAR Action Action Date Dose Rate Site NaCl 0.9% infusion 10-250 mL/hr, intravenous, As needed, Between Consecutive Piggyback Administrations, Starting on 05/26/22 at 0746, Infuse at the same rate as the piggyback until tubing clears or up to a volume of 20 mL. Select for IV medication administration when no maintenance IV available or when IV medications are not compatible with maintenance fluid. New Bag 05/26/2022 8:22 AM FRONT DESK AUXILIARY 280 mL/hr 280 mL/hr remdesivir in NaCl 0.9% IVPB 100 mg (VEKLURY) 100 mg, intravenous, at 240 mL/hr, Administer over 30 Minutes, Once, On 05/26/22 at 0800, For 1 dose, Indications: COVID-19 New Bag 05/26/2022 7:55 AM FRONT DESK AUXILIARY 100 mg 240 mL/hr sodium chloride 0.9 % injection 3 mL 3 mL, intra-catheter, As needed, line care, Starting on 05/26/22 at 0746, Prior to and following infusion and between multiple consecutive infusions. Given 05/26/2022 8:29 AM FRONT DESK AUXILIARY 3 mL documented in this encounter Additional Health Concerns Infection Onset Date Last Indicated Resolved Time COVID19 05/23/2022 05/23/2022 06/12/2022 5:30 AM CDT documented as of this encounter
--- OUTSIDE RECORDS SUMMARY | 2023-05-04 12:43 | XMS_ITS | Encounter Summary ---
Author Name Unknown Organization [facility] Address [address] [place] [address] Care Team Providers Care Senior Data Analyst Name Role Phone Unavailable Primary Care Provider Unavailabl e Encounter Details Date Type Department Care Team (Late st Contact Info) Description 06/06/2022 Documentation Division of Endocrinology in [place], [place] [address] [place] [address] Asa Enriquez M.D. [address] [place] [address] Social History Tobacco Use Types Packs/Day Years Used Date Smoking Tobacco: Former Nutrition Answer Date Recorded Nutrition: EVOO Fat Source Unknown 05/21 Nutrition: Servings of Fruits/Vegetables per Day Not on file 05/21/2020 Dental Answer Date Recorded Dental: Regular Dentist Unknown 05/21/19 21 Sex and Gender Information Value Date Recorded Sex Assigned at Male 05/30/2018 12:39 PM [employer] Gender Identity Male 05/30/2018 12:39 PM [employer] Sexual Orientation Straight 05/30/2018 12 :39 PM [employer] PROF[employer] documented as of this encounter Progress Notes * Asa Enriquez M.D. - 06/06/2022 12:35 PM CST [place] medical records and laboratory results reviewed. The patient was seen at [facility] for his anticoagulation clinic. The patient has persistent atrial fibrillation and INR low range of 2-3. In light of these findings, no additional recommendations for now. He continues warfarin 5 mg 2 tablets each day in the evening or as directed. No additional recommendations for now. Asa Enriquez M.D. 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
--- OUTSIDE RECORDS SUMMARY | 2023-05-04 12:43 | XMS_ITS | Clinical Summary ---
Author Name Unknown Organization [facility] Address [place], [place] [address] Care Team Providers Care Butcher Head Name Role Phone Rhys, Areli Sharp MD Unavailable [phone] Brien Blunt MD Primary Care Provider [phone] Allergies No known active allergies Medications Medication Sig Dispensed Refills Start Date End Date Status calcium combo no.2-vit. D3 (CITRACAL + D SLOW REL.) 600 mg calcium- 500 unit Extended-Release tablet Take by mouth once daily. 0 06/29/2015 Active sildenafil citrate (VIAGRA) 100 mg tabletIndications:E rectile dysfunction due to diseases classified elsewhere Take 1 tablet by mouth once daily if needed for Erectile Dysfunction. Take 30min to 4 hours before sexual activity. Max 100mg/24hr. 12 tablet 12 06/25/2018 Active cyanocobalamin (VITAMIN B12) 1,000 mcg/mL injectionIndication s:Vitamin B12 deficiency Inject 1 mL (1,000 mcg) subcutaneous every 4 weeks. 3 mL 3 07/02/2022 Active Needle, Disp, 23 G (B-D Hypodermic Needle 23Gx1) 23 gauge x 1 ndleIndications:Vit jamison B12 deficiency As directed. 100 Each 0 07/02/2022 Active syringe, disposable, 3 mL syrgIndications:Vit jamison B 12 deficiency USE TO INJECT B12 ONCE MONTHLY 25 Each 0 07/02/2022 Active denosumab (Prolia) 60 mg/mL injection Inject 60 mg subcutaneous EVERY 26 WEEKS. 1 mL 0 08/09/2022 Active tamsulosin (FLOMAX) 0.4 mg capsuleIndications: BPH without urinary obstruction Take 1 Capsule (0.4 mg) by mouth at bedtime. 90 Capsule 3 12/13/2022 Active clotrimazole (LOTRIMIN) 1 % creamIndications:Ba lanitis Apply topically to affected area(s) two times daily. To prepuce three times daily when irritated 45 g 0 01/22/2023 Active warfarin (COUMADIN) 5 mg tabletIndications:P ersistent atrial fibrillation (HC),Anticoagulatio n monitoring, INR range 2-3 Take by mouth 10 mg (5 mg x 2) every day in the evening OR as directed 0 02/08/2023 Active Active Problems Problem Noted Date Diagnosed Date Osteoarthritis of carpometacarpal joint of right thumb 07/02/2022 07/02/2022 Pacemaker 07/02/2022 07/02/2022 Gait instability 07/02/2022 07/02/2022 Enchondroma of right femur 07/02/202207/02 Anticoagulation monitoring, INR range 2-3 2022 Bone lesion 10/17/2021 Overview: Distal right femur. Chondroid type lesion. Repeat Xray in 3 months. December 2021 Stable central retinal vein occlusion 05/28/2019 Overview: Discussed with Dr. Gomez And he recommends Eliquis. They looked into the cost of Eliquis and Xarelto and both would be at least $400 every 3 months which is too much money for Alfonso. He will work hard to be very compliant with the Warfarin. 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 Overview: -24 hour Holter Monitor: afib 43-189bpm and occational pauses >3 seconds S/P AVN ablation 08/31/2008 On chronic anticoagulation History of Atrial Flutter 10/08/2007 Overview: -S/P Typical and atypical atrial flutter ablation 10/08/2007 Ascending aorta dilatation 06/24/2007 Overview: -Echo 05/2007: Mildly dilated ascending aorta, at the sinuses of Valsalva 3.8. Proximal ascending aorta, 4.0 cm Deficiency of other specified B group vitamins 0 06/18/1992 Encounters Date Type Department Care Team Description 05/03/2023 Telephone [facility] [address] Rober Barlow DO Anticoagulation (Annual re-enrollment ) 04/26/2023 8:30 AM SALES SUPPORT CONSULTANT Orders Only [facility] [address] [facility] [address] [facility] [place] [facility] 04/26/2023 Anticoagulation (warfarin) [facility] [address] [facility] [address] 1[facility] Anticoagulation 04/26/2023 Travel 03/21/2023 Telephone [facility] [address] [place] [address] Brien Blunt MD Refill Request (LIDOCAINE PATCHES) 03/19/2023 Telephone [facility] [address] [place] [address] Brien Blunt MD Abnormal Lab Results 03/15/2023 8:00 AM SALES SUPPORT CONSULTANT Orders Only [address] [address] [place] [place] [facility] 03/15/2023 Anticoagulation (warfarin) [address] [address] 1[facility] [facility] Anticoagulation 03/15/2023 Travel 03/13/2023 2:00 PM SALES SUPPORT CONSULTANT Office Visit [address] [place] [address] Brien Blunt MD Derm Problem (Rash on penis x 2 weeks); Urinary Problem (Burning with urination (maybe from rash) and also some urinary leakage) 03/13/2023 Travel 03/07/2023 Telephone [address] [place] [address] Brien Blunt MD Urinary Problem (Also follow up rash private area, not better) 02/26/2023 10:50 AM SALES SUPPORT CONSULTANT [place] [address] Brien Blunt MD Follow Up (after radiation, will need order for CT q 3-6 months on chest abdomen, and pelvis per oncology); Medication Management (discuss Flomax, wants to discuss different medication); Dizziness (unsteady only, no dizziness, only occ.); Rash (check yeast rash on butt) 02/26/2023 Anticoagulation (warfarin) [facility] [address] [place] [address] 1[facility] [place] Anticoagulation (Chart update) 02/26/2023 Telephone [address] [place] [address] Brien Blunt MD Anticoagulation (BPA-MICONAZOLE NITRATE 2 % TOPICAL OINTMENT & Warfarin) 02/26/2023 Travel 02/08/2023 8:10 AM SALES SUPPORT CONSULTANT Orders Only [place] [address] [place] [place] [address] [facility] [place] [facility] 02/08/2023 Anticoagulation (warfarin) [facility] [address] [place] [address] 1, [place] [facility] Anticoagulation 02/08/2023 Travel 02/06/2023 Orders Only [facility] Scanner 1 scan: (1-Ord) RCM 02/06/2023 Telephone [facility] [address] [place] [address] Brien Blunt MD Questions (lab work for appointment on 02/26) from Last 3 Months Immunizations Name Administration Dates Next Due AMB INFLUENZA IIV3 (AGE 65+ YRS) PF (Flu Clinic Only) 01/17/2018 AMB Influenza, IIV3 (Age >=3 years)(Flu Clinic Only) 02/05/2011,03/14/2010,02/12/2008 Amb Influenza, Inact (High-d ose) (Flu Clinic Only) 03/12/2014 Amb Influenza, Inactivated A IIV4 (Age 65+ Years) Preserv Free 01/28/2020 COVID-19 vaccine (Pfizer-Bio NTech 30mcg/0.3mL) 12YO+ BIVALENT PF, MDV 01/30/2022 COVID-19 vaccine (Pfizer-Bio NTech 30mcg/0.3mL) PF, MDV 02/06/2021 Influenza, High-dose Inactivated 03/30/2016,01/31 Influenza, IIV3 (Age 6-35 mos) 03/07/2009 Influenza, IIV3 (Age >=3 years) 02/24/20 13,02/06/2012,03/07/2009,2004 Influenza, Inactivated AIIV4 (Age 65+ Years) Preserv Free 01/03/2023,03/06/2022,01/30/2021 Influenza, Inactivated IIV3 (Age 65+ Years) Preserv Free 04/24/2017 Pneumococcal Poly,23-Valent (Pneumovax) 10/09/2007 Pneumococcal conj 13-Valent (Prevnar 13) 02/18/2015 Td (Age >=7 Years) 10/17/2021 Td, Preservative Free (age > = 7 Years) 04/05/2006 Tdap 12/12/2011 Zoster (Shingrix-RZV, recombinant) 05/12/2019, Zoster (Zostavax-ZVL, live) 04/19/2008 Family History Medical History Relation Name Comments Heart Disease Father [place] at 76 Hyperlipidemia Father Stroke Mother age 83, 6 months after of sequelae Arthritis Sister Relation Name Status Comments Father Mother Sister Social History Tobacco Use Types Packs/Day Years Used Date Smoking Tobacco: Former Cigarettes 0.3 34 0 04/01/1955 - 04/01/1989 Cigars 04/01/1955 - 0 04/01/1989 Smokeless Tobacco: Never Tobacco Cessation:Counseling Given: Yes Comments:quit 25 years ago Alcohol Use Standard Drinks/Week Comments Yes 1 (1 standard drink = 0.6 oz pur e alcohol) PHQ-2 Answer Date Recorded PHQ-2 TOTAL SCORE 0 07/02/2022 Social Connections Answer Date Recorded Frequency of Communication with Friends and Fami ly Not on file 07/16/2022 Financial Resource Strain Answer Date R ecorded Difficulty of Paying Living Expenses 3 07/14/2021 Difficulty of Paying Living Expenses Not on file 07/14/2021 Food Insecurity Answer Date Recorded Worried About Running Out of Food in the Last Ye ar 1 07/14/2021 Transportation Needs Answer Date Record ed Lack of Transportation (Medical) 1 07/14/2021 Housing Stability Answer Date Recorded Unable to Pay for Housing in the Last Year 1 07/14/2021 Sex and Gender Information Value Date Recorded Sex Assigned at Not on file Gender Identity Not on file Sexual Orientation Not on file Obstetrics History Last Filed Vital Signs Vital Sign Reading Time Taken Comments Blood Pressure 139/72 03/13/2023 1:56 PM SALES SUPPORT CONSULTANT Pulse 81 03/13/2023 1:56 PM SALES SUPPORT CONSULTANT Temperature 36.3 ??C (97.4 ??F) 03/13/2023 1:56 PM CS T Respiratory Rate 16 08/09/2022 9:35 AM CDT Oxygen Saturation 98% 03/13/2023 1:56 PM SALES SUPPORT CONSULTANT Inhaled Oxygen Concentration - - Weight 106.3 kg (234 lb 4.8 oz) 03/13/2023 1:56 PM SALES SUPPORT CONSULTANT Height 190.5 cm (6' 3) 11/28/2022 11:2 6 AM CDT Body Mass Index 29.29 11/28/2022 11:26 AM CDT Plan of Treatment Upcoming Encounters Date Type Department Care Team (Late st Contact Info) Description 05/28/2023 8:00 AM SALES SUPPORT CONSULTANT Orders Only [facility] [address] [place] [address] [place] 07/29/2023 Cardiac Device Check [facility] [phone] Health Maintenance Due Date Last Done Comments COVID-19 vaccine series ( season) 2023 02/12/2023, 01/30/2022, 02/06/2021, Additional history exists Depression screening for age 12+ 07/03/2023 07/02/2022, 07/02/2022, 07/02/2022, Additional history exists Medicare Wellness for age 65+ 07/03/2023, 07/14/2021, 07/24/2017, Additional history exists BMI (ht and wt on same day) for age 18+ 11/29/2023 11/28/2022, 08/09/2022, 07/02/2022, Additional history exists Tetanus booster 10/18/2031 10/17/2021, 11/30, 04/05/2006 Tdap Completed 12/12/2011 Pneumococcal series for age 65+ Completed 5, 10/09/2007 Zoster (shingles) series for age 50+ Completed 05/12/2019, 02/16/2019, 04/19/2008 Influenza for age 65+ Completed 01/03/2023 , 03/06/2022, 01/30/2021, Additional history exists Medical Devices Implanted Type Area Esthetician Permanent Makeup Artist Device Identifier Shelf Expiration Date Model / Serial / Lot Dual Chamber Pacemaker Implanted:05/2008 by Luis Felipe Joaquin MD (Quantity not on file) Standard Pacemaker Medtronic [id number] / [id number] / Procedures Procedure Name Priority Date/Time Associated Diagnosis Comments INR,POCT Routine 04/26/2023 8:42 AM SALES SUPPORT CONSULTANT Persistent atrial fibrillation (HC) Anticoagulation monitoring, INR range 2-3 INR,POCT Routine 03/15/2023 8:05 AM SALES SUPPORT CONSULTANT Persistent atrial fibrillation (HC) Anticoagulation monitoring, INR range 2-3 URINALYSIS MICROSCOPIC Routine 03/13/2023 2:00 PM SALES SUPPORT CONSULTANT Lower urinary tract symptoms (LUTS) URINE CULTURE Routine 03/13/2023 2:00 PM SALES SUPPORT CONSULTANT Lower urinary tract symptoms (LUTS) UA W/ SEDIMENT EXAM REFLEXED PER CRITERIA Routine 03/13/2023 2:00 PM SALES SUPPORT CONSULTANT Lower urinary tract symptoms (LUTS) VITAMIN B12 Routine 02/08/2023 8:10 AM SALES SUPPORT CONSULTANT B12 deficiency LIPID PANEL W REFLEX MEASURED LDL Routine 02/08/2023 8:10 AM SALES SUPPORT CONSULTANT Other hyperlipidemia BASIC METABOLIC PANEL Routine 02/08/2023 8:10 AM SALES SUPPORT CONSULTANT Persistent atrial fibrillation (HC) PROTIME-INR STAT 02/08/2023 8:10 AM SALES SUPPORT CONSULTANT Persistent atrial fibrillation (HC) Anticoagulation monitoring, INR range 2-3 SCAN-EYE EXAM 02/06/2023 12:00 AM SALES SUPPORT CONSULTANT from Last 3 Months Results * (ABNORMAL) INR,POCT (04/26/2023 8:42 AM SALES SUPPORT CONSULTANT) Only the most recent of2 resultswithin the time period is included. INR 2.2(H) <1.3 04/26/2023 8:46 AM SALES SUPPORT CONSULTANT [facility] Blood BLOOD SPECIMEN / Unknown 04/26/2023 8:42 AM SALES SUPPORT CONSULTANT 04/26/2023 8:46 AM SALES SUPPORT CONSULTANT Narrative [facility] - 04/26/2023 8:46 AM SALES SUPPORT CONSULTANT ?Therapeutic Range 2.0-3.0 for most anticoagulated patients 2.5-3.5 or 4.0 for high risk patients Rober Barlow DO LABORATORY Performing Organization Address City/[facility]/ZIP Co de Phone Number [facility] [address] [place] [address], [place] [phone] * (ABNORMAL) URINALYSIS MICROSCOPIC (03/13/2023 2:00 PM SALES SUPPORT CONSULTANT) RBC 0-2 0-2, None Seen /HPF 03/13/2023 2:18 PM SALES SUPPORT CONSULTANT [facility] WBC 26-50(A) 0-2, 3-5, None Seen /HPF 03/13/2023 2:18 PM SALES SUPPORT CONSULTANT [facility] BACTERIA Few None Seen, Rare, Few Bacteria/H PF 03/13/2023 2:18 PM SALES SUPPORT CONSULTANT [facility] EPITHELIAL CELLS Few None Seen, Few Epi/HPF 03/13/2023 2:18 PM SALES SUPPORT CONSULTANT [facility] Mucus Present 03/13/2023 2:18 PM SALES SUPPORT CONSULTANT [facility] Urine URINE SPECIMEN / Unknown Non-Blood / Unknown 03/13/2023 2:00 PM SALES SUPPORT CONSULTANT 03/13/2023 2:12 PM SALES SUPPORT CONSULTANT Brien Blunt MD URINE Performing Organization Address City/[facility] Co de Phone Number [facility] [address] [place] [address], [place] [phone] * (ABNORMAL) URINE CULTURE (03/13/2023 2:00 PM SALES SUPPORT CONSULTANT) CULTURE RESULT(A) 03/17/2023 7:08 AM SALES SUPPORT CONSULTANT [facility] CULTURE 10,000-50,000 CFU/mL Enterococcus faecalis 03/17/2023 7:08 AM SALES SUPPORT CONSULTANT [facility] Urine URINE SPECIMEN / Unknown Non-Blood / Unknown 03/13/2023 2:00 PM SALES SUPPORT CONSULTANT 03/13/2023 2:12 PM SALES SUPPORT CONSULTANT Narrative Organism Antibiotic Method Susceptibility Enterococcus faecalis AMPICILLIN <=2: S Enterococcus faecalis NITROFURANTOIN <=16: S Brien Blunt MD MICROBIOLOGY Performing Organization Address [facility]/State/ZIP Co de Phone Number [facility] [address] [place] [address], [place] * (ABNORMAL) UA W/ SEDIMENT EXAM REFLEXED PER CRITERIA (03/13/2023 2:00 PM SALES SUPPORT CONSULTANT) COLOR Yellow Yellow Color 03/13/2023 2:18 PM SALES SUPPORT CONSULTANT [facility] CLARITY Clear Clear Clarity 03/13/2023 2:18 PM SALES SUPPORT CONSULTANT [facility] SPECIFIC GRAVITY,URINE >=1.030(A) 1.010, 1.015, 1.020, 1.025 03/13/2023 2:18 PM SALES SUPPORT CONSULTANT [facility] PH,URINE 5.5 6.0, 7.0, 8.0, 5.5, 6.5, 7.5, 8.5 03/13/2023 2:18 PM SALES SUPPORT CONSULTANT [facility] UROBILINOGEN, QUALITATIVE Normal Normal EU/dl 03/13/2023 2:18 PM SALES SUPPORT CONSULTANT [facility] PROTEIN, URINE Negative Negative mg/dL 03/13/2023 2:18 PM SALES SUPPORT CONSULTANT [facility] GLUCOSE, URINE Negative Negative mg/dL 03/13/2023 2:18 PM SALES SUPPORT CONSULTANT [facility] KETONES,URINE Trace(A) Negative mg/dL 03/13/2023 2:18 PM SALES SUPPORT CONSULTANT [facility] BILIRUBIN,URI NE Negative Negative 03/13/2023 2:18 PM SALES SUPPORT CONSULTANT [facility] OCCULT BLOOD,URINE Negative Negative 03/13/2023 2:18 PM SALES SUPPORT CONSULTANT [facility] NITRITE Negative Negative 03/13/2023 2:18 PM SALES SUPPORT CONSULTANT [facility] LEUKOCYTE ESTERASE Trace(A) Negative 03/13/2023 2:18 PM SALES SUPPORT CONSULTANT [facility] Urine URINE SPECIMEN / Unknown Non-Blood / Unknown 03/13/2023 2:00 PM SALES SUPPORT CONSULTANT 03/13/2023 2:12 PM SALES SUPPORT CONSULTANT Brien Blunt MD URINE [facility] [address] [place] [address], [place] [phone] * (ABNORMAL) LIPID PANEL W REFLEX MEASURED LDL (02/08/2023 8:10 AM SALES SUPPORT CONSULTANT) CHOLESTEROL,TOTAL 202(H) 100 - 199 mg/dL 02/08/2023 3:37 PM SALES SUPPORT CONSULTANT [facility] Comment: Cholesterol, Total Reference Ranges Desirable <200 mg/dL Borderline 200-239 mg/dL High >=240 mg/dL TRIGLYCERIDES 109 <150 mg/dL 02/08/2023 3:37 PM SALES SUPPORT CONSULTANT [facility] HDL CHOLESTEROL 46 >40 mg/dL 3:37 PM SALES SUPPORT CONSULTANT [facility] NON-HDL CHOLESTEROL 156(H) <145 mg/dl 02/08/2023 3:37 PM SALES SUPPORT CONSULTANT [facility] CHOL/HDL RATIO 4.39 <4.50 02/08/2023 3:37 PM SALES SUPPORT CONSULTANT [facility] LDL CHOLESTEROL 134(H) <=130 mg/dL 02/08/2023 3:37 PM SALES SUPPORT CONSULTANT [facility] VLDL CHOLESTEROL 22 <=30 mg/dL 02/08/2023 3:37 PM SALES SUPPORT CONSULTANT [facility] PROVIDER ORDERED STATUS RANDOM 02/08/2023 3:37 PM SALES SUPPORT CONSULTANT [facility] Blood BLOOD SPECIMEN / Unknown Venipuncture / Unknown 02/08/2023 8:10 AM SALES SUPPORT CONSULTANT 02/08/2023 8:10 AM SALES SUPPORT CONSULTANT Brien Blunt MD [facility]STRY [facility] [address] [place] [address], * (ABNORMAL) PROTIME-INR (02/08/2023 8:10 AM SALES SUPPORT CONSULTANT) INR 2.6(H) <1.3 02/08/2023 1:14 PM SALES SUPPORT CONSULTANT [facility] PROTIME 28.7(H) 10.3 - 12.3 sec 02/08/2023 1:14 PM SALES SUPPORT CONSULTANT [facility] Blood BLOOD SPECIMEN / Unknown Venipuncture / Unknown 02/08/2023 8:10 AM SALES SUPPORT CONSULTANT 02/08/2023 8:10 AM SALES SUPPORT CONSULTANT [facility]ORATORY - 02/08/2023 1:14 PM SALES SUPPORT CONSULTANT ?Therapeutic Range 2.0-3.0 for most anticoagulated patients 2.5-3.5 or 4.0 for high risk patients The INR is only used for patients on stable oral anticoagulant therapy. It makes no significant contribution to the diagnosis or treatment of patients whose Protime is prolonged for other reasons. INR results are increased when heparin levels exceed 1.0 U/mL, which corresponds to an aPTT >125 seconds if the patient is on UFH. Rober Barlow DO HEMATOLOGY Performing Organization Address [facility] Co de Phone Number [facility] [address] [place] [address], * VITAMIN B12 (02/08/2023 8:10 AM SALES SUPPORT CONSULTANT) VITAMIN B12 918 232 - 1,245 pg/mL 02/08/2023 3:37 PM SALES SUPPORT CONSULTANT [facility] Blood BLOOD SPECIMEN / Unknown Venipuncture / Unknown 02/08/2023 8:10 AM SALES SUPPORT CONSULTANT 02/08/2023 8:10 AM SALES SUPPORT CONSULTANT [facility] LABORATORY - 02/08/2023 3:37 PM SALES SUPPORT CONSULTANT Biotin supplements may cause clinically significant interference for this test assay. ??If interference is suspected, it is strongly recommended that biotin is discontinued for at least one week prior to retesting. Brien Blunt MD CHEMISTRY Performing Organization Address City/[facility] Co de Phone Number [facility] [address] [place] [address], * (ABNORMAL) BASIC METABOLIC PANEL (02/08/2023 8:10 AM SALES SUPPORT CONSULTANT) SODIUM 144 136 - 145 mmol/L 02/08/2023 3:37 PM [facility] POTASSIUM 4.6 3.5 - 5.1 mmol/L 02/08/2023 3:37 PM [facility] CHLORIDE 106 98 - 107 mmol/L 02/08/2023 3:37 PM [facility] CO2,TOTAL 27 22 - 29 mmol/L 02/08/2023 3:37 PM [facility] ANION GAP 11 5 - 18 02/08/2023 3:37 PM [facility] GLUCOSE 115(H) 70 - 99 mg/dL 02/08/2023 3:37 PM [facility] CALCIUM 9.4 8.8 - 10.2 mg/dL 02/08/2023 3:37 PM [facility] BUN 15 8 - 23 mg/dL 02/08/2023 3:37 PM [facility] CREATININE 0.95 0.70 - 1.20 mg/dL 02/08/2023 3:37 PM [facility] BUN/CREAT RATIO 16 10 - 20 3 3:37 PM [facility] eGFR 79(L) >90 mL/min/1.7 3m2 02/08/2023 3:37 PM [facility] Comment:As of 2021, eG FR is calculated by the CKD-EPI creatinine equation without race adjustment. ??eGFR can be influenced by muscle mass, exercise, and diet. ??The reported eGFR is an estimation only and is only applicable if the renal function is stable. Blood BLOOD SPECIMEN / Unknown Venipuncture / Unknown 02/08/2023 8:10 AM SALES SUPPORT CONSULTANT 02/08/2023 8:10 AM SALES SUPPORT CONSULTANT Brien Blunt MD [facility] [address] [place] [address], * SCAN-EYE EXAM (02/06/2023 12:00 AM SALES SUPPORT CONSULTANT) Scanner OTHER from Last 3 Months Advance Directives Documents on File Type Date Recorded Patient Lathe Tender Expl anation Healthcare Directive 06/07/2022 1:17 PM Latest Code Status on File Code Status Date Activated Date Inactivated Comments Full Code 08/31/2008 7:37 AM 09/01/2008 12:42 PM Code Status History Code Status Date Activated Date Inactivated Comments Full Code 10/08/2007 8:37 AM 10/09/2007 1:14 PM Care Teams Butcher Head Relationship Specialty Start Date End Date Brien Blunt MD [address] [place] [address] PCP - General Family Practice 05/03/15 Areli Joiner MD [address] [place] [address] [address] Family Practice 02/15/11
--- OUTSIDE RECORDS SUMMARY | 2023-05-04 12:43 | XMS_ITS | Encounter Summary ---
Author Name Unknown Organization [facility] Address [address] [place] [address] Care Team Providers Care Watch Mechanic Name Role Phone Unavailable Primary Care Provider Unavailabl e Reason for Referral * Outpatient (Routine) - Closed Specialty Diagnoses / Procedures Referred By Robles t Referred To Contact Endocrinology Diagnoses Osteoporosis Asa Enriquez M.D. [address] [place] [address] [facility] Referral ID Status Reason Start Date Expiration Date Visits Re quested Visits Authorized [id number] Closed 04/25/2022 04/24/2025 1 1 O MACHINE OPERATOR Encounter Details Date Type Department Care Team (Late st Contact Info) Description 04/25/2022 Orders Only Division of Endocrinology in [place], [place] [address] [place] [address] Asa Enriquez M.D. [address] [place] [address] [phone] Osteoporosis (Primary Dx) Social History Tobacco Use Types Packs/Day Years Used Date Smoking Tobacco: Former Nutrition Answer Date Recorded Nutrition: EVOO Fat Source Unknown 05/21 Nutrition: Servings of Fruits/Vegetables per Day Not on file 05/21/2020 Dental Answer Date Recorded Dental: Regular Dentist Unknown 05/21/19 21 Sex and Gender Information Value Date Recorded Sex Assigned at Male 05/30/2018 12:39 PM PIANO MACHINE OPERATOR Gender Identity Male 05/30/2018 12:39 PM PIANO MACHINE OPERATOR Sexual Orientation Straight 05/30/2018 12 :39 PM PIANO MACHINE OPERATOR documented as of this encounter Plan of Treatment Scheduled Referrals Name Type Priority Associated Diagnoses Order Schedule Endocrinology office visit (clinic) Outpatient Referral Routine Osteoporosis Expected: 04/25/2022 (Approximate), Expires: 07/25/2023 documented as of this encounter Results * 25-Hydroxyvitamin D2 and D3 (06/29/2022 6:49 AM CDT) 25-Hydroxy D2 <4.0 ng/mL 06/30/2022 12:23 AM CDT [facility] 25-Hydroxy D3 25 ng/mL 06/30/2022 12:23 AM CDT [facility] 25-Hydroxy D Total 25 ng/mL 2022 12:23 AM CDT [facility] Comment: ----REFERENCE VALUE---- 25-HYDROXY D TOTAL (D2+D3) Optimum levels in the healthy population are 20-50, patients with bone disease may benefit from higher levels within this range. ----ADDITIONAL INFORMATION---- This test was developed and its performance characteristics determined by [facility] in a manner consistent with CLIA requirements. This test has not been cleared or approved by the U.S. Food and Drug Administration. Blood (Blood, Venous) 06/29/2022 6:49 AM CDT 06/29/2022 9:16 AM CDT Asa Enriquez M.D. LAB BLOOD ADD-ON [facility] [address] [place] [address] [facility] [address] [place] [address] * Phosphorus Inorganic (06/29/2022 6:49 AM CDT) Phosphorus (Inorganic), S 3.2 2.5 - 4.5 mg/dL 06/29/2022 7:58 AM CDT DTL Blood (Blood, Venous) 06/29/2022 6:49 AM CDT 06/29/2022 7:26 AM CDT Asa Enriquez M.D. LAB BLOOD ADD-ON [facility] [address] [place] [address], [facility] [address] [place] [address] * (ABNORMAL) Parathyroid Hormone (PTH) (06/29/2022 6:49 AM CDT) Parathyroid Hormone (PTH), S 95(H) 15 - 65 pg/mL 06/29/2022 7:58 AM CDT DTL Blood (Blood, Venous) 06/29/2022 6:49 AM CDT 06/29/2022 7:26 AM CDT Asa Enriquez M.D. LAB BLOOD ADD-ON [facility] [address] [place] [address], [facility] [address] [place] [address] documented in this encounter Visit Diagnoses Diagnosis Osteoporosis- Primary documented in this encounter
--- OUTSIDE RECORDS SUMMARY | 2023-05-04 12:43 | XMS_ITS | Encounter Summary ---
Author Name Unknown Organization [facility] Address [address] [place] [address] Care Team Providers Care Grave Digger Name Role Phone Unavailable Primary Care Provider Unavailabl e Reason for Visit * Reason Comments Outpatient Infusion Remdesivir * Outpatient (Routine) - Authorized Specialty Diagnoses / Procedures Referred By Robles t Referred To Contact Infusion Therapy Diagnoses COVID-19 Infection REM 200mg 1 WC (Hard of Hearing) Contact is stefani Canales [phone] Procedures INF THER Mindi Dickey APRN, C.N.P., D.N.P. [address] [place] [address] [facility] [address] [place] [address] Referral ID Status Reason Start Date Expiration Date V isits Requested Visits Authorized [id number] Authorized 05/25/2022 05/25/2023 5 5 Encounter Details Date Type Department Care Team (Late st Contact Info) Description 05/27/2022 8:00 AM LACEMAKER Infusion Department of Infusion Therapy in [place] [address] [place] [address] Mindi Dickey APRN, C.N.P., D.N.P. [address] [place] [address] COVID-19 Infection (Primary Dx) Social History Tobacco Use Types Packs/Day Years Used Date Smoking Tobacco: Former Nutrition Answer Date Recorded Nutrition: EVOO Fat Source Unknown 05/21 Nutrition: Servings of Fruits/Vegetables per Day Not on file 05/21/2020 Dental Answer Date Recorded Dental: Regular Dentist Unknown 05/21/19 21 Sex and Gender Information Value Date Recorded Sex Assigned at Male 05/30/2018 12:39 PM LACEMAKER Gender Identity Male 05/30/2018 12:39 PM LACEMAKER Sexual Orientation Straight 05/30/2018 12 :39 PM LACEMAKER documented as of this encounter Last Filed Vital Signs Vital Sign Reading Time Taken Comments Blood Pressure 153/79 05/27/2022 7:58 AM LACEMAKER Pulse 65 05/27/2022 7:58 AM LACEMAKER Temperature 36.7 ??C (98.1 ??F) 05/27/2022 7:58 AM CS T Respiratory Rate 20 05/27/2022 7:58 AM LACEMAKER Oxygen Saturation 98% 05/27/2022 7:58 AM LACEMAKER Inhaled Oxygen Concentration - - Weight - [...] Post Medications (Hazardous/Low Fluid Volume), Starting on 05/27/22 at 0753, Infuse at the same rate as the medication until tubing cleared of medication, then discard. New Bag 05/27/2022 8:35 AM LACEMAKER 280 mL/hr 280 mL/hr remdesivir in NaCl 0.9% IVPB 100 mg (VEKLURY) 100 mg, intravenous, at 240 mL/hr, Administer over 30 Minutes, Once, On 05/27/22 at 0800, For 1 dose, Indications: COVID-19 New Bag 05/27/2022 8:06 AM LACEMAKER 100 mg 240 mL/hr sodium chloride 0.9 % injection 10 mL 10 mL, intra-catheter, As needed, line care, Starting on 05/27/22 at 0753, Prior to blood sampling, post blood transfusion, or post blood sampling. Given 05/27/2022 8:07 AM LACEMAKER 3 mL documented in this encounter Additional Health Concerns Infection Onset Date Last Indicated Resolved Time COVID19 05/23/2022 05/23/2022 06/12/2022 5:30 AM CDT documented as of this encounter
--- OUTSIDE RECORDS SUMMARY | 2023-05-04 12:43 | XMS_ITS | Encounter Summary ---
Author Name Unknown Organization [facility] Address [address] [place] [address] Care Team Providers Care Check Writing Machine Operator Name Role Phone Unavailable Primary Care Provider Unavailabl e Reason for Visit * Reason Comments Outpatient Infusion remdesivir * Outpatient (Routine) - Authorized Specialty Diagnoses / Procedures Referred By Robles t Referred To Contact Infusion Therapy Diagnoses COVID-19 Infection REM 200mg 1 WC (Hard of Hearing) Contact is stefani Canales [phone] Procedures INF THER Mindi Dickey APRN, C.N.P., D.N.P. [address] [place] [address] [facility] [address] [place] [address] Referral ID Status Reason Start Date Expiration Date V isits Requested Visits Authorized [id number] Authorized 05/25/2022 05/25/2023 5 5 Encounter Details Date Type Department Care Team (Late st Contact Info) Description 05/25/2022 2:30 PM MULTIPLEX OPERATOR Infusion Department of Infusion Therapy in [place] [address] [place] [address] Mindi Dickey APRN, C.N.P., D.N.P. [address] [place] [address] COVID-19 Infection (Primary Dx) Social History Tobacco Use Types Packs/Day Years Used Date Smoking Tobacco: Former Nutrition Answer Date Recorded Nutrition: EVOO Fat Source Unknown 05/21 Nutrition: Servings of Fruits/Vegetables per Day Not on file 05/21/2020 Dental Answer Date Recorded Dental: Regular Dentist Unknown 05/21/19 21 Sex and Gender Information Value Date Recorded Sex Assigned at Male 05/30/2018 12:39 PM MULTIPLEX OPERATOR Gender Identity Male 05/30/2018 12:39 PM MULTIPLEX OPERATOR Sexual Orientation Straight 05/30/2018 12 :39 PM MULTIPLEX OPERATOR documented as of this encounter Last Filed Vital Signs Vital Sign Reading Time Taken Comments Blood Pressure 125/60 05/25/2022 1:38 PM MULTIPLEX OPERATOR Pulse 65 05/25/2022 1:38 PM MULTIPLEX OPERATOR Temperature 36.7 ??C (98.1 ??F) 05/25/2022 1:38 PM CS T Respiratory Rate 05/25/2022 1:38 PM MULTIPLEX OPERATOR Oxygen Saturation 97% 05/25/2022 1:38 PM MULTIPLEX OPERATOR Inhaled Oxygen Concentration - - Weight - [...] Post Medications (Hazardous/Low Fluid Volume), Starting on Sat05/25/22 at 1326, Infuse at the same rate as the medication until tubing cleared of medication, then discard. New Bag 05/25/2022 2:26 PM MULTIPLEX OPERATOR 280 mL/hr 280 mL/hr remdesivir in NaCl 0.9% IVPB 200 mg (VEKLURY) 200 mg, intravenous, at 280 mL/hr, Administer over 30 Minutes, Once, On Sat05/25/22 at 1330, For 1 dose, Indications: COVID-19 New Bag 05/25/2022 1:54 PM MULTIPLEX OPERATOR 200 mg 280 mL/hr sodium chloride 0.9 % injection 3 mL 3 mL, intra-catheter, As needed, line care, Starting on Sat05/25/22 at 1326, Prior to and following infusion and between multiple consecutive infusions. Given 05/25/2022 2:37 PM MULTIPLEX OPERATOR 3 mL Given 05/25/2022 1:51 PM MULTIPLEX OPERATOR 3 mL documented in this encounter Additional Health Concerns Infection Onset Date Last Indicated Resolved Time COVID19 05/23/2022 05/23/2022 06/12/2022 5:30 AM CDT documented as of this encounter
--- NOTE | 2023-05-04 12:50 | CRLHL7_ITS ---
For Patients: As a result of the Century Cures Act, medical imaging exams and procedure reports are released immediately into your electronic medical record. You may view this report before your referring provider. If you have questions, please contact your health care provider. INDICATION: Left-sided flank pain. Left renal mass status post resection. COMPARISON: 10/05/2013. TECHNIQUE: Noncontrast CT of the mm pelvis. FINDINGS: Kidneys ureter and bladder: Stable right renal cyst. No hydronephrosis. Compared to the previous exam, there has been resection of a exophytic mass at the superior pole of the left kidney. Allowing for noncontrast imaging, no new left renal mass. No hydronephrosis. No ureteral dilatation. No stone at the UVJ Pelvis: Mild prostatic enlargement. Pelvic phleboliths. GI: No abnormal bowel distention, bowel wall thickening or inflammatory change. Peritoneal: No free air or free fluid. Liver and gallbladder: Cholecystectomy. Normal liver. Spleen: Normal. Pancreas: Unremarkable. Adrenal glands: Normal. Peritoneum and: No free-air or free-fluid. Lymph nodes: No adenopathy. Vascular: Normal caliber abdominal were there. Scattered vascular calcifications. Lung bases: Slight deep and atelectasis. Partially visualized cardiac pacer leads. Skeletal: Normal alignment. No fractures. Lumbar spondylosis. IMPRESSION: 1. Stable right renal cyst. Interval postop changes left kidney. No hydronephrosis. No ureteral dilatation 2. No abnormal bowel distention, bowel wall thickening or inflammation. 3. No free air or free fluid. Please note that all CT scans at this facility use dose modulation, iterative reconstruction, and/or weight-based dosing when appropriate to reduce radiation dose to as low as reasonably achievable. Dictated by Reese Camacho MD @ 05/04/2023 1:22:55 PM (Electronically Signed)
[2023-05-04] MEDS: LIDOCAINE 5% PATCH 1 PATCH TRANSDERMA (13:15)
[2023-05-04] MEDS: ONDANSETRON ODT 4 MG TAB PO (13:16)
[2023-05-04] MEDS: OxyCODONE/APAP 5-325 TABLET 1 TAB PO (13:16)
[2023-05-04 13:18] LABS: Appearance Urine Clear (Clear); Bilirubin Urine Negative (Negative); Blood Urine Negative (Negative); Color Urine Yellow (Yellow); Glucose Urine Negative (Negative); Ketones Urine Negative (Negative); Leukocyte Esterase Urine 1+ (Negative); Nitrite Urine Negative (Negative); Protein Urine Negative (Negative)
[2023-05-04 13:28] LABS: Bacteria Urine Few; Mucus Urine Few; RBC Urine 0-2 (0-2); Squamous Epithelial Cell Urine Few (None-Few)
[2023-05-04 13:31] LABS: Basophils Absolute Auto 0.03 K/uL (0.00-0.30); Basophils Percent Auto 0.5 % (0.0-3.0); Eosinophils Absolute Auto 0.07 K/uL (0.00-0.50); Eosinophils Percent Auto 1.1 % (0.0-7.0); Hematocrit 43.2 % (37.0-53.0); Hemoglobin* 14.2 gm/dL (13.5-17.5); Immature Granulocytes Abs Auto 0.01 K/uL (0.00-0.30); Immature Granulocytes Pct Auto 0.2 %; Lymphocytes Percent Auto 21.1 % (20-44); Mean Corpuscular HGB Conc 33 gm/dL (32-36); Mean Corpuscular Hemoglobin 32 pg (26-34); Mean Corpuscular Volume 97 fL (80-100); Monocytes Percent Auto 9.7 % (0.0-11.0); Neutrophils Absolute Auto 4.48 K/uL (1.7-7.0); Neutrophils Percent Auto 67.4 % (42.0-72.0); Platelet Count* 262 K/uL (140-440); Red Blood Count 4.44 m/uL (4.30-5.90); White Blood Count* 6.63 K/uL (4.50-11.00)
[2023-05-04 13:33] LABS: Slide Review Reflex No
[2023-05-04 13:43] LABS: Chloride* 106 mmol/L (96-114); Potassium* 4.4 mmol/L (3.6-5.1); Sodium* 140 mmol/L (135-149)
[2023-05-04 13:46] LABS: Anion Gap 9 mEq/L (7-15); Blood Urea Nitrogen* 15 mg/dL (7-30); Carbon Dioxide* 25 mmol/L (20-32); Creatinine* 0.9 mg/dL (0.5-1.5); Est. Creatinine Clearance* 65.08; Estimated Glomerular Filt Rate 85 ml/min; Glucose* 100 mg/dL (60-115); INR 1.51 (0.91-1.10); Lipase* 58 U/L (23-300); Prothrombin Time 19.2 Seconds
[2023-05-04 13:47] LABS: Calcium* 9.3 mg/dL (8.4-10.6)
--- NOTE | 2023-05-08 16:53 | ED.GENADULT ---
HPI - General Adult General Chief complaint: Back Injury/Pain Stated complaint: left flank pain Time Seen by Provider: 05/04/23 12:29 History of Present Illness HPI narrative: This is a follow-up note from the patient's recent ER visit on 05/04. Urine culture came back today growing Enterococcus. Not tested again cephalexin. Is sensitive to Cipro, Levaquin, nitrofurantoin. I contacted the patient at home. He says on the whole is doing much better. No symptoms of fever, dysuria, or other ongoing UTI symptoms. He has not yet had a chance to get his INR rechecked. For based on sensitivity to have a from a culture, will switch him from cephalexin to Macrobid. He will stop the cephalexin today. He will tile picker his new prescription for Macrobid this afternoon and started taking Macrobid 100 mg b.i.d. for 5 days. He will follow up to have his INR rechecked and follow up with his doctor. Related Data Home Medications Medication Instructions Recorded Confirmed calcium-vit D3-ferrous fumarate tab PO 11/06/21 03/19/23 600 mg-125 unit-18 mg tablet cyanocobalamin (vitamin B-12) 1,000 mcg IM .qmonth 11/06/21 03/19/23 1,000 mcg/mL injection solution triamcinolone acetonide 0.1 % 1 applic topical PRN 11/06/21 03/19/23 topical ointment warfarin 5 mg tablet 10 mg PO QDAY 11/06/21 03/19/23 denosumab 60 mg/mL subcutaneous 60 mg subcut [id number] 09/12/22 03/19/23 syringe Previous Rx's Medication Instructions Recorded lidocaine 5 % topical patch See Rx Instructions topical 03/21/23 .COMPLEX #30 ea cephalexin 500 mg capsule 500 mg PO Q12H #20 caps 05/04/23 lidocaine 5 % topical patch 1 patch topical DAILY #15 ea 05/04/23 oxycodone 5 mg capsule 5 mg PO Q6H PRN pain #10 caps 05/04/23 nitrofurantoin 100 mg PO BID #10 caps 05/08/23 monohydrate/macrocrystals 100 mg capsule (Macrobid) Allergies Allergy/AdvReac Type Severity Reaction Status Date / Time No Known Drug Allergies Allergy Verified 04/25/23 11:16 PFSH PFSH Medical History (Updated 05/04/23 @ 14:39 by James Rodriguez MD) Metastatic renal cell carcinoma of pancreas ?C64.9 - Malignant neoplasm of unspecified kidney, except renal pelvis (ICD-10) ?C78.89 - Secondary malignant neoplasm of other digestive organs (ICD-10) Renal cell cancer ?C64.9 - Malignant neoplasm of unspecified kidney, except renal pelvis (ICD-10) History of kidney cancer (~2013) ?Z85.528 - Personal history of other malignant neoplasm of kidney (ICD-10) Atrial fibrillation ?I48.91 - Unspecified atrial fibrillation (ICD-10) Surgical History (Updated 11/08/22 @ 10:30 by Tarik Dow) S/P YAG capsulotomy, bilateral (11/23/20) ?Z98.890 - Other specified postprocedural states (ICD-10) H/O bilateral cataract extraction (~2020) ?Z98.41 - Cataract extraction status, right eye (ICD-10) ?Z98.42 - Cataract extraction status, left eye (ICD-10) History of partial nephrectomy (2013) ?Z90.5 - Acquired absence of kidney (ICD-10) History of cholecystectomy (04/08/06) ?Z90.49 - Acquired absence of other specified parts of digestive tract (ICD-10) Social History (Reviewed 09/12/22 @ 15:12 by Thelma Rashid ~ [facility], [facility]) Smoking Status: Former smoker What tobacco products do you use: cigarettes Smoking quit date/years: >15 years ago and cigars Second hand tobacco smoke exposure: No How often do you have a drink containing alcohol: 2-4 times a month How many standard drinks containing alcohol do you have on a typical day: 1 or 2 How often do you have six or more drinks on one occasion: Less than monthly AUDIT-C Alcohol total score: 3 Non-prescribed substance use: denies use Are you now , , , , never or living with a partner: Social isolation score (0-1 are the most socially isolated patients): 0 Course Vital Signs Vital signs: Initial Vital Signs Temperature 97.4 F L 05/04/23 12:23 Temperature Source Temporal Artery Scan 05/04/23 12:23 Pulse Rate 83 05/04/23 12:23 Respiratory Rate 16 02/03/24 12:23 Blood Pressure 145/89 H 05/04/23 12:23 Blood Pressure Mean 107 H 05/04/23 12:23 Blood Pressure Position Sitting 05/04/23 12:23 Pulse Oximetry 92 05/04/23 12:23 Oxygen Delivery Method Room Air 05/04/23 12:23 Vital Signs Temperature 97.4 F L 05/04/23 12:23 Pulse Rate 83 05/04/23 12:23 Respiratory Rate 16 05/04/23 12:23 Blood Pressure 145/89 H 05/04/23 12:23 Pulse Oximetry 92 05/04/23 12:23 Oxygen Delivery Method Room Air 05/04/23 12:23 Temperature 97.4 F L 05/04/23 12:23 Pulse Rate 83 05/04/23 12:23 Respiratory Rate 16 05/04/23 12:23 Blood Pressure 145/89 H 05/04/23 12:23 Pulse Oximetry 92 05/04/23 12:23 Oxygen Delivery Method Room Air 05/04/23 12:23 Medications Administered Medications: Discontinued Medications Generic Name Dose Route Start Last Admin Trade Name Freq PRN Reason Stop Dose Admin Lidocaine 1 patch 05/04/23 12:49 05/04/23 13:15 Lidocaine 5% Patch TRANSDERMA 05/04/23 12:50 1 patch ONCE ONE Administration Protocol Ondansetron HCl 4 mg 05/04/23 12:49 05/04/23 13:16 Ondansetron Odt 4 Mg Tab PO 05/04/23 12:50 4 mg ONCE ONE Administration Oxycodone/Acetaminophen 1 tab 05/04/23 12:49 05/04/23 13:16 Oxycodone/Apap 5-325 Tablet PO 1 tab Q4H PRN Administration Medical Decision Making Lab Data Labs: Lab Results 05/04/23 05/04/23 Range/Units 13:10 13:15 WBC 6.63 (4.50-11.00) K/uL RBC 4.44 (4.30-5.90) m/uL Hgb 14.2 (13.5-17.5) gm/dL Hct 43.2 (37.0-53.0) % MCV 97 (80-100) fL MCH 32 (26-34) pg MCHC 33 (32-36) gm/dL RDW Coeff of Coleman 13.0 (11.5-15.5) % Plt Count 262 (140-440) K/uL Neut % (Auto) 67.4 (42.0-72.0) % Lymph % (Auto) 21.1 (20-44) % Stewart % (Auto) 9.7 (0.0-11.0) % Eos % (Auto) 1.1 (0.0-7.0) % Baso % (Auto) 0.5 (0.0-3.0) % Neut # (Auto) 4.48 (1.7-7.0) K/uL Lymph # (Auto) 1.40 (0.90-2.90) K/uL Stewart # (Auto) 0.60 (0.00-0.90) K/UL Eos # (Auto) 0.07 (0.00-0.50) K/uL Baso # (Auto) 0.03 (0.00-0.30) K/uL Abs Immat Gran (auto) 0.01 (0.00-0.30) K/uL Imm/Tot Granulo (auto) 0.2 % INR 1.51 H (0.91-1.10) Sodium 140 (135-149) mmol/L Potassium 4.4 (3.6-5.1) mmol/L Chloride 106 (96-114) mmol/L Carbon Dioxide 25 (20-32) mmol/L Anion Gap 9 (7-15) mEq/L BUN 15 (7-30) mg/dL Creatinine 0.9 (0.5-1.5) mg/dL Estimated Creat Clear 65.08 Estimated GFR 85 ml/min Glucose 100 (60-115) mg/dL Calcium 9.3 (8.4-10.6) mg/dL Lipase 58 (23-300) U/L Urine Color Yellow (Yellow) Urine Appearance Clear (Clear) Urine pH 7.0 (5.0-8.5) Ur Specific Eckerty 1.020 (1.000-1.030) Urine Protein Negative (Negative) Urine Glucose (UA) Negative (Negative) Urine Ketones Negative (Negative) Urine Blood Negative (Negative) Urine Nitrite Negative (Negative) Urine Bilirubin Negative (Negative) Urine Urobilinogen 2.0 A (0.2-1.0) Ur Leukocyte Esterase 1+ A (Negative) Urine RBC 0-2 (0-2) Urine WBC 10-25 A (0-5) Ur Squamous Epith Cells Few (None-Few) Urine Bacteria Few A (None) Urine Mucus Few A (None) Discharge Plan Discharge Clinical Impression: Acute left flank pain, Subtherapeutic international normalized ratio (INR), Acute UTI Patient Disposition: Home, Self-Care Condition: Stable Instructions: Urinary Tract Infection in Men (DC), Flank Pain (ED) Additional Instructions: As we discussed, your INR level is low today. Please continue on your Coumadin dose and have it rechecked again on Saturday or . You have signs of an infection in your bladder. Please take the prescribed antibiotics. I suspect that the pain in your left side is probably due to injured muscles and is probably not a kidney infection. To treat your side pain, start with Tylenol. Use lidocaine patches every day. Use the prescription oxycodone if needed if you have pain uncontrolled by the Tylenol or lidocaine patch. Be careful with oxycodone because it causes drowsiness, dizziness, constipation, and can cause confusion. Oxycodone, like all prescription pain killers, can be addictive. Come back to the ER right away if you have any concerns especially fever, worsening or uncontrolled pain, trouble breathing, pain radiating down your leg, or any other concerns. Prescriptions: New oxycodone 5 mg capsule 5 mg PO Q6H PRN (Reason: pain) Qty: 10 0RF lidocaine 5 % adhesive patch,medicated 1 patch topical DAILY Qty: 15 0RF Rx Instructions: leave on most painful area for up to 12 hrs cephalexin 500 mg capsule 500 mg PO Q12H Qty: 20 0RF nitrofurantoin monohyd/m-cryst [Macrobid] 100 mg capsule 100 mg PO BID Qty: 10 0RF Rx Instructions: must administer with a meal/food No Action cyanocobalamin (vitamin B-12) 1,000 mcg/mL solution 1,000 mcg IM .qmonth triamcinolone acetonide 0.1 % ointment 1 applic topical PRN [id number] fumarate 600-125-18 mg-unit-mg tablet PO denosumab 60 mg/mL syringe 60 mg subcut [id number] warfarin 5 mg tablet 10 mg PO QDAY Patient Comments: TAKE 2 TABLETS BY MOUTH EVERY DAY OR DIRECTED lidocaine 5 % adhesive patch,medicated See Rx Instructions topical .COMPLEX Qty: 30 3RF Rx Instructions: leave on most painful area for up to 12 hrs topical Follow Up/Referrals: Brien Blunt MD [Primary Care Provider] - Stand Alone Forms: [email or web address] Info Instructions
== END 2023-05-04 15:05 | disposition home or self-care (01) ==
PROVIDERS: Emergency Provider Emergency Medicine; PCP Family Medicine
DX: R10.9 Unspecified abdominal pain (principal); N39.0 Urinary tract infection, site not specified
CPT/HCPCS: 36415; 74176; 80048; 81001; 83690; 85025; 85610; 87086; 87186; 99281; 99283; 99284; A9270

== ENCOUNTER 2023-08-05 08:36 | Outpatient (CLI) | payer MEDICARE, BC, SELFPAY ==
--- OUTSIDE RECORDS SUMMARY | 2023-08-05 08:42 | XMS_ITS | Referral Summary ---
Author Name Unknown Organization [facility] Address [address] [place] [address] Care Team Providers Care Chemistry Research Assistant Name Role Phone Unavailable Primary Care Provider Unavailabl e Source Comments Patient records contain information from all sites at [facility]. For routine questions regarding patient records, call [phone] during business hours, M-F 8:00 AM - 5:00 PM Central Time. Record requests for emergency care only can be directed to [phone] at any time.[facility] Allergies No known active allergies Medications Medication Sig Dispensed Refills Start Date End Date Status triamcinolone (KENALOG) 0.1 % cream Apply topically as needed. 04/25/2016 Active calcium citrate/vitamin D3 (CITRACAL REGULAR ORAL) Take 1 tablet by mouth 2 (two) times a day. 04/25/2016 Active cyanocobalamin (VITAMIN B12) 1,000 mcg/mL injection every 30 (thirty) days. 4 04/02/2018 Active sildenafiL (VIAGRA) 50 mg tablet Take 1 tablet by mouth as directed. 11/02/2013 Active warfarin (COUMADIN) 5 mg tablet Take 10 mg by mouth daily. 0 05/09/2018 Active denosumab (PROLIA) 60 mg/mL syringe Inject 1 mL (60 mg total) under the skin every 6 (six) months. 1 mL 1 05/30/2018 Active Additional Information Patient not taking.Reported on 02/25/2023 BD SafetyGlide Syringe 3 mL 23 x 1 syringe See Admin Instructions. 06/08/2020 Active clotrimazole-betamet h dip-zinc 1-0.05-20 % combo pack 11/06/2021 Active denosumab (PROLIA) 60 mg/mL syringe Inject 1 mL (60 mg total) under the skin every 6 (six) months. 1 mL 1 11/07/2022 Active Additional Information Patient not taking.Reported on 02/25/2023 clotrimazole (LOTRIMIN) 1 % cream Apply 1 Application topically as needed. Active calcium carbonate-vitamin D3 1,250 mg (500 mg calcium)-5 mcg (200 Unit) per tablet Take 1 tablet by mouth daily with breakfast. Active Active Problems Problem Noted Date Diagnosed [...] me in Medical Oncology at [facility] at this time. If there are additional complications or concerns in the future, I would be happy to see back in clinic. 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 Malignant Neoplasm Of Kidney Left 03/04/2014 Aftercare Cardiac Pacemaker 09/01/2008 Overview: Overview: S/P AVN ablation 08/31/08 Care Home (Current) Anticoagulant Treatment 05/31 Overview: Overview: [...] week 06/27/2022 How often do you attend [facility] or taoist services? 1 to 4 times per year [...] and heating? Not hard at all 06/27/2022 [facility] - [...] place to sleep or slept in a skilled nursing (including now)? No 06/27/2022 Nutrition Answer Date [...] Sex Assigned at Male 05/30/2018 12:39 PM BONDING EQUIPMENT OPERATOR Gender Identity Male 05/30/2018 12:39 PM BONDING EQUIPMENT OPERATOR Sexual Orientation Straight 05/30/2018 12 :39 PM BONDING EQUIPMENT OPERATOR Last Filed Vital Signs Vital Sign Reading Time Taken Comments Blood Pressure 141/71 02/25/2023 11:11 AM BONDING EQUIPMENT OPERATOR Pulse 89 02/25/2023 11:11 AM BONDING EQUIPMENT OPERATOR Temperature 37.2 ??C (99 ??F) 02/25/2023 2:51 PM BONDING EQUIPMENT OPERATOR Respiratory Rate 16 02/25/2023 2:51 PM BONDING EQUIPMENT OPERATOR Oxygen Saturation 95% 02/25/2023 2:51 PM BONDING EQUIPMENT OPERATOR Inhaled Oxygen Concentration - - Weight 105 kg (230 lb 7.9 oz) 02/25/2023 2:51 PM BONDING EQUIPMENT OPERATOR Height 183.9 cm (6' 0.4) 02/25/2023 2:51 PM BONDING EQUIPMENT OPERATOR Body Mass Index 30.91 02/25/2023 2:51 PM BONDING EQUIPMENT OPERATOR Plan of Treatment Not on file Medical Devices Implanted Type Area Gum Rolling Machine Tender Device Identifier Shelf Expiration Date Model / Serial / Lot Lead Medtronic [id number] Implanted:05/2008 (Quantity not on file) Cardiac Lead Other/Legacy - See Implant Description Medtronic / [id number] / Description:LEAD Medtronic B [id number] CapsureFix Novus Lead Medtronic [id number] Implanted:05/2008 (Quantity not on file) Cardiac Lead Other/Legacy - See Implant Description Medtronic / [id number] Description:LEAD Medtronic P [id number] CapSureFix Novus Conversions - Default Historical Implant Device Implanted:04/2008 (Quantity not on file) Pacemaker Description:Device Status Te xt - Pacemaker. Pacemaker Medtronic [id number] Implanted:05/2008 (Quantity not on file) Pacemaker Chest Medtronic / [id number] Description:Pacemaker Medtro marina [id number] Adapta Conversions - Default Historical Implant Device Implanted:05/2015 (Quantity not on file) Pacemaker Description:Device Status Te xt - Pacemaker. [id number] LANI [place] [address]
--- OUTSIDE RECORDS SUMMARY | 2023-08-05 08:42 | XMS_ITS | Clinical Summary ---
Author Name Unknown Organization [facility] Address [address] [place] [address] Care Team Providers Care Community Midwife Name Role Phone Unavailable Primary Care Provider Unavailabl e Source Comments Patient records contain information from all sites at [facility]. For routine questions regarding patient records, call [phone] during business hours, M-F 8:00 AM - 5:00 PM Central Time. Record requests for emergency care only can be directed to [phone] at any time.[facility] Allergies No known active allergies Medications Medication [...] me in Medical Oncology at [facility] at this time. If there are additional complications or concerns in the future, I would be happy to see back in clinic. 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 Gender Identity Male 05/30/2018 12:39 PM MOLD YARD CRANE OPERATOR Sexual Orientation Straight 05/30/2018 12 :39 PM MOLD YARD CRANE OPERATOR Last Filed Vital Signs Vital Sign Reading Time Taken Comments Blood Pressure 141/71 02/25/2023 11:11 AM MOLD YARD CRANE OPERATOR Pulse 89 02/25/2023 11:11 AM MOLD YARD CRANE OPERATOR Temperature 37.2 ??C (99 ??F) 02/25/2023 2:51 PM MOLD YARD CRANE OPERATOR Respiratory Rate 16 02/25/2023 2:51 PM MOLD YARD CRANE OPERATOR Oxygen Saturation 95% 02/25/2023 2:51 PM MOLD YARD CRANE OPERATOR Inhaled Oxygen Concentration - - Weight 105 kg (230 lb 7.9 oz) 02/25/2023 2:51 PM MOLD YARD CRANE OPERATOR Height 183.9 cm (6' 0.4) 02/25/2023 2:51 PM MOLD YARD CRANE OPERATOR Body Mass Index 30.91 02/25/2023 2:51 PM MOLD YARD CRANE OPERATOR Plan of Treatment Health Maintenance Due Date Last Done Comments Depression Screening (Annual PHQ-2) 04/01/2023 Fall Risk Screen (Annual) 04/01/2023 COVID-19 Vaccine (2022-05 4 season) 2023 02/12/2023, 01/30/2022, 02/06/2021, Additional history exists DTaP,Tdap,and Td Vaccines (3 - Td or Tdap) 10/18/2031 10/17/2021, 12/12/2011, 04/05/2006 Pneumococcal vaccine (65+ years) Completed 02/19/20, 10/09/2007 Zoster Vaccines Completed 05/12/2019, 01/30, 04/19/2008 Influenza Vaccine Completed 01/03/2023, , 01/30/2021, Additional history exists Medical Devices Implanted Type Area Separator Operator Shellfish Meats Device Identifier Shelf Expiration Date Model / Serial / Lot Lead Medtronic [id number] Implanted:05/2008 (Quantity not on file) Cardiac Lead Other/Legacy - See Implant Description Medtronic / [id number] / Description:LEAD Medtronic B [id number] CapsureFix Novus Lead Medtronic [id number] Implanted:05/2008 (Quantity not on file) Cardiac Lead Other/Legacy - See Implant Description Medtronic / [id number] / Description:LEAD Medtronic P [id number] CapSureFix Novus Conversions - Default Historical Implant Device Implanted:04/2008 (Quantity not on file) Pacemaker Description:Device Status Te xt - Pacemaker. Pacemaker Medtronic [id number] Implanted:05/2008 (Quantity not on file) Pacemaker Chest Medtronic / [id number] / Description:Pacemaker Medtro marina [id number] Adapta Conversions - Default Historical Implant Device Implanted:05/2015 (Quantity not on file) Pacemaker Description:Device Status Te xt - Pacemaker. (Canjilon) [id number] [facility] LANI Barton [address]
--- OUTSIDE RECORDS SUMMARY | 2023-08-05 08:42 | XMS_ITS | Clinical Summary ---
Author Name Unknown Organization [facility] Address [place], [place] [address] Care Team Providers Care Compensation Analyst Name Role Phone Rhys, Areli Sharp MD Unavailable [phone] Brien Blunt MD Primary Care Provider [phone] Allergies Active Allergy Reactions Criticality Noted Date Comments Tamsulosin Dizziness 05/10/2023 Medications Medication Sig Dispensed Refills Start Date End Date Status calcium combo no.2-vit. D3 (CITRACAL + D SLOW REL.) 600 mg calcium- 500 unit Extended-Release tablet Take by mouth once daily. 0 06/29/2015 Active cyanocobalamin (VITAMIN B12) 1,000 mcg/mL injectionIndications :Vitamin B12 deficiency Inject 1 mL (1,000 mcg) subcutaneous every 4 weeks. 3 mL 3 07/02/2022 Active Needle, Disp, 23 G (B-D Hypodermic Needle 23Gx1) 23 gauge x 1 ndleIndications:Dawn min B12 deficiency As directed. 100 Each 07/02/2022 Active syringe, disposable, 3 mL syrgIndications:Dawn min B 12 deficiency USE TO INJECT B12 ONCE MONTHLY 25 Each 07/02/2022 Active clotrimazole (LOTRIMIN) 1 % creamIndications:Bal anitis Apply topically to affected area(s) two times daily. To prepuce three times daily when irritated 45 g 01/22/2023 Active warfarin (COUMADIN) 5 mg tabletIndications:Pe rsistent atrial fibrillation (HC),Anticoagulation monitoring, INR range 2-3 Take by mouth 10 mg (5 mg x 2) every day in the evening OR as directed 02/08/2023 Active zoledronic acid in mannitol & water (Reclast) 5 mg/100 mL infusion Inject 5 mg intravenous one time. Active lidocaine 5 % topical patch Apply 1 Patch on dry, clean, hairless skin every 12 hours if needed for Pain. 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 2008 Overview: INR [...] Encounters Date Type Department Care Team Description 07/17/2023 10:45 AM CDT Orders Only [facility] [address] [place] [address] Lab, [place] [facility] (/) 07/17/2023 Anticoagulation (warfarin) [facility] [address] [place] [address] 1, [place] [facility] Anticoagulation (Lab ) 07/17/2023 Travel 07/12/2023 Telephone [facility] [address] [place] [address] Brien Blunt MD Anticoagulation (INR OVERDUE REMINDER #2 ) 05/21/2023 Nurse/Clinic Staff Only [facility] [address] [place] [address] Luis Felipe Joaquin MD 05/20/2023 3:15 PM OCEANOGRAPHER GEOLOGICAL Orders Only [facility] [address] [place] [address] Lab, [place] [facility] 05/20/2023 Anticoagulation (warfarin) [facility] [address] [facility] [address] 1, [place] [facility] Anticoagulation 05/20/2023 Travel 05/11/2023 Anticoagulation (warfarin) [facility] [address] [facility] [address] 1, [facility] Anticoagulation 05/10/2023 1:55 PM OCEANOGRAPHER GEOLOGICAL Office Visit [facility] [address] [facility] [address] Brien Blunt MD Sinus Problem (10-14 days/Cold symptoms/sinus symptoms) 05/10/2023 Travel from Last 3 Months Immunizations Name Administration Dates Next Due AMB INFLUENZA IIV3 (AGE 65+ YRS) PF (Flu Clinic Only) 01/17/2018 AMB Influenza, IIV3 (Age >=3 years)(Flu Clinic Only) 02/05/2011,03/14/2010,02/12/2008 Amb Influenza, Inact (High-d ose) (Flu Clinic Only) 03/12/2014 Amb Influenza, Inactivated A IIV4 (Age 65+ Years) Preserv Free 01/28/2020 COVID-19 vaccine (unrival-Bio NTech 30mcg/0.3mL) 12YO+ BIVALENT PF, MDV 01/30/2022 COVID-19 vaccine (unrival-Bio NTech 30mcg/0.3mL) PF, MDV 02/06/2021 Influenza, High-dose [...] History Relation Name Comments Heart Disease Father [place] at 76 Hyperlipidemia Father Stroke Mother age 83, 6 months after of sequelae Arthritis Sister Relation Name Status Comments Father Mother Sister Social History Tobacco Use Types Packs/Day Years Used Date Smoking Tobacco: Former Cigarettes 0.3 34 0 04/01/1955 - 04/01/1989 Cigars Smokeless Tobacco: Never Tobacco Cessation:Counseling Given: Yes [...] Sign Reading Time Taken Comments Blood Pressure 113/68 05/10/2023 2:13 PM OCEANOGRAPHER GEOLOGICAL Pulse 78 05/10/2023 2:13 PM OCEANOGRAPHER GEOLOGICAL Temperature 36.8 ??C (98.3 ??F) 05/10/2023 2:13 PM CS T Respiratory Rate 16 08/09/2022 9:35 AM CDT Oxygen Saturation 96% 05/10/2023 2:13 PM OCEANOGRAPHER GEOLOGICAL Inhaled Oxygen Concentration - - Weight 102.9 kg (226 lb 14.4 oz) 05/10/2023 2:13 PM OCEANOGRAPHER GEOLOGICAL Height 190.5 cm (6' 3) 11/28/2022 11:2 6 AM CDT Body Mass Index 28.36 11/28/2022 11:26 AM CDT Plan of Treatment Upcoming Encounters Date Type Department Care Team (Late st Contact Info) Description 08/21/2023 8:15 AM CDT Orders Only [facility] [address] [place] [facility] [place] [address] Lab, [place] 12/18/2023 9:00 AM CDT Cardiac Device Check [facility] [address] [place] [address] 12/18/2023 10:00 AM CDT Orders Only [facility] [address] [place] [address] 12/18/2023 11:00 AM CDT Office Visit [facility] [address] [place] [address] Luis Felipe Joaquin MD [address] [place] [address] Health Maintenance Due Date Last Done Comments Depression screening for age 12+ 07/03/2023 07/02/2022, 07/02/2022, 07/02/2022, Additional history exists Medicare Wellness for age 65+ 07/03/2023, 07/14/2021, 07/24/2017, Additional history exists BMI (ht and wt on same day) for age 18+ 11/29/2023 11/28/2022, 08/09/2022, 07/02/2022, Additional history exists Influenza for age 65+ 12/01/2023 01/03/2023 , 03/06/2022, 01/30/2021, Additional history exists Tetanus booster 10/18/2031 10/17/2021, 11/30, 04/05/2006 Tdap Completed 12/12/2011 Pneumococcal series for age 65+ Completed 5, 10/09/2007 Zoster (shingles) series for age 50+ Completed 05/12/2019, 02/16/2019, 04/19/2008 COVID-19 vaccine series Completed 02/13/20, 01/30/2022, 02/06/2021, Additional history exists Medical Devices Implanted Type Area Marine Pilot Device Identifier Shelf Expiration Date Model / Serial / Lot Dual Chamber Pacemaker Implanted:05/2008 by Luis Felipe Joaquin MD (Quantity not on file) Standard Pacemaker Medtronic [id number] / [id number] / Procedures Procedure Name Priority Date/Time Associated Diagnosis Comments PROTIME-INR STAT 07/17/2023 10:44 AM CDT Persistent atrial fibrillation (HC) Anticoagulation monitoring, INR range 2-3 PSA TOTAL (DIAGNOSTIC) Routine 07/17/2023 10:44 AM CDT Elevated PSA INR,POCT Routine 05/20/2023 3:04 PM OCEANOGRAPHER GEOLOGICAL Persistent atrial fibrillation (HC) Anticoagulation monitoring, INR range 2-3 INR,POCT Routine 05/10/2023 3:04 PM OCEANOGRAPHER GEOLOGICAL Persistent atrial fibrillation (HC) Anticoagulation monitoring, INR range 2-3 from Last 3 Months Results * (ABNORMAL) PROTIME-INR (07/17/2023 10:44 AM CDT) INR 2.1(H) <1.3 07/17/2023 3:59 PM CDT [facility] PROTIME 23.2(H) 10.3 - 12.3 sec 07/17/2023 3:59 PM CDT [facility] Blood BLOOD SPECIMEN / Unknown Venipuncture / Unknown 07/17/2023 10:44 AM CDT 07/17/2023 10:47 AM CDT Narrative [facility] - 07/17/2023 3:59 PM CDT ?Therapeutic Range 2.0-3.0 for most anticoagulated patients [...] seconds if the patient is on UFH. Brien Blunt MD HEMATOLOGY Performing Organization Address [facility] de Phone Number [facility] [address] [address], [place] * PSA TOTAL (DIAGNOSTIC) (07/17/2023 10:44 AM CDT) PSA TOTAL (DIAGNOSTIC) 2.30 <4.00 ng/mL 07/17/2023 9:39 PM CDT [facility] Blood BLOOD SPECIMEN / Unknown Venipuncture / Unknown 07/17/2023 10:44 AM CDT 07/17/2023 10:47 AM CDT Narrative [facility] - 07/17/2023 9:39 PM CDT The test method changed on 09/25/2022. If this test has been used for serial monitoring, rebaselining is recommended. Rebaselining consists of 2 measurements, collected 3-6 weeks apart. The Jesse Elecsys total PSA assay is an electrochemiluminescence immunoassay ECLIA performed on the Jesse Juanita e immunoassay analyzers. Values obtained with different assay methods may be different and cannot be used interchangeably. Brien Blunt MD CHEMISTRY Performing Organization Address [facility] Phone Number [facility] [address] [place] [address], [place] * (ABNORMAL) INR,POCT (05/20/2023 3:04 PM OCEANOGRAPHER GEOLOGICAL) Only the most recent of2 resultswithin the time period is included. 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
--- OUTSIDE RECORDS SUMMARY | 2023-08-05 08:42 | XMS_ITS ---
Author Name Unknown Organization [facility] Address [address] [place] [address] Care Team Providers Care Journey Lineman Name Role Phone Unavailable Unavailable Unavailable Surgery Details Not on file Complications Check Surgery Details section. Procedure Estimated Blood Loss Check Surgery Details section. Procedure Findings Check Surgery Details section. Procedure Specimens Taken Check Surgery Details section.
--- OUTSIDE RECORDS SUMMARY | 2023-08-05 08:42 | XMS_ITS ---
Author Name Unknown Organization [facility] Address [address] [place] [address] Care Team Providers Care Car Shunter Name Role Phone Unavailable Primary Care Provider [...] follow-up with me in Medical Oncology at [facility] at this time. If there are additional complications or concerns in the future, I would be happy to see back in clinic. 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 Treatments may have been administered in another system.
--- NOTE | 2023-08-05 09:00 | CT_ITS ---
Patient: NIKKIE LEBRON Facility:?[facility] Patient ID:?[id number] Site Patient ID:?[id number]. Site :?[id number] Study:?CT-Chest/Abd/Pelvis 111 ISOVUE 370 AND WATER PREP-08/05/2023 9:48:53 AM Ordering Physician:JENIFFER SMITH Final Report: INDICATION: Follow-up kidney cancer. TECHNIQUE: CT chest, abdomen and pelvis acquired with 111 cc Isovue 370 IV contrast. COMPARISON: CT abdomen and pelvis 05/04/2023 and 10/05/2013. FINDINGS: CHEST Lungs and pleura: Band of scarring at the right lung base with slight nodularity, stable since 2013 (axial series 3, image [id number]). No suspicious pulmonary nodule. No effusions, thickening, or pneumothorax. Heart and vasculature: Dilatation of the ascending aorta which measures 4.5 centimeters in maximal dimension (coronal series 4, image 59). Cardiac pacemaker. Mild left atrial enlargement. Mild coronary artery and aortic calcification Lymph node/mediastinum: No mediastinal, hilar, or axillary adenopathy. Chest wall: Normal. Bones: Mild degenerative spondylosis. No suspicious osseous lesion. ABDOMEN AND PELVIS: Liver: Small unchanged hepatic cysts. No suspicious hepatic lesion Gallbladder and bile ducts: Status post cholecystectomy. Pancreas: Indeterminate 15 x 10 millimeter hypoattenuating lesion arising from the anteroinferior aspect of the pancreatic head (series 2, image 167). No pancreatic ductal dilatation Spleen: Small unchanged splenic cyst Adrenal glands: Unremarkable. No masses. Kidneys: Prior left partial nephrectomy. Bilateral renal cysts. No suspicious renal mass. No hydronephrosis or urolithiasis GI tract: No bowel obstruction or focal inflammation. Moderate colonic diverticulosis. Vasculature: Scattered atherosclerosis. Mesenteric arteries are patent. Lymph nodes: No lymphadenopathy. Omentum/peritoneum/retroperitoneum/abdominal wall: No masses or infiltration. No free air or significant free fluid. Pelvic organs: Enlarged, heterogeneous prostate. Trace gas within the urinary bladder. Bones: No suspicious bone lesions. Coarsened trabeculation and cortical thickening of the left proximal femur, stable since 2013 but suspicious for Paget`s disease. IMPRESSION: 1. Status post partial left nephrectomy. No evidence of local disease recurrence or metastatic disease in chest, abdomen or pelvis. 2. Indeterminate 15 x 10 millimeter hypoattenuating lesion arising from the anterior inferior aspect of the pancreatic head. Recommend further characterization with MRI. 3. Dilatation of the ascending aorta which measures 4.5 centimeters in maximum dimension. 4. Colonic diverticulosis. 5. Prostatomegaly. 6. Trace gas within the urinary bladder. Please correlate for recent instrumentation or infection. Please note that all CT scans at this facility use dose modulation, iterative reconstruction, and/or weight-based dosing when appropriate to reduce radiation dose to as low as reasonably achievable. Dictated by Josef Albert MD @ 08/05/2023 1:08:29 PM Signed by:?Josef Albert MD @08/05/2023 1:08:29 PM (Electronic Signature)
[2023-08-05 09:12] LABS: Creatinine* 0.8 mg/dL (0.5-1.5); Estimated Glomerular Filt Rate 87 ml/min
== END 2023-08-05 08:37 | disposition home or self-care (01) ==
PROVIDERS: PCP Family Medicine; Visit Provider Clinical Nurse Specialist
DX: C64.9 Malignant neoplasm of unspecified kidney, except renal pelvis (principal); C78.89 Secondary malignant neoplasm of other digestive organs; K86.9 Disease of pancreas, unspecified; I77.819 Aortic ectasia, unspecified site; K57.30 Diverticulosis of large intestine without perforation or abscess without bleeding; N40.0 Benign prostatic hyperplasia without lower urinary tract symptoms
CPT/HCPCS: 36415; 71260; 74177; 82565; Q9967

== ENCOUNTER 2023-08-22 10:00 | Outpatient (RCR) | payer MEDICARE, BC, SELFPAY ==
--- NOTE | 2022-11-13 10:35 | URNOTE ---
Request received for authorization for?[employer] ([id number]). Prior authorization is not required as services are based on medical necessity and follow Medicare guidelines.
--- NOTE | 2023-01-15 09:51 | ONC.NURNOTE ---
Noted that patient is overdue for prolia that was ordered, discussed with daughter per notes. This appointment is cancelled d/t receiving reclast elsewhere.
== END 2023-10-22 23:59 | disposition home or self-care (01) ==
LOC: CCIC 10:00
PROVIDERS: PCP Family Medicine; Referring Provider Family Medicine; Visit Provider Internal Medicine Hematology & Oncology
DX: C64.2 Malignant neoplasm of left kidney, except renal pelvis (principal); C78.89 Secondary malignant neoplasm of other digestive organs
CPT/HCPCS: 99202; 99203; 99213; G0463

== ENCOUNTER 2024-03-16 13:01 | Outpatient (RCR) | payer MEDICARE, BC, SELFPAY ==
--- NOTE | 2024-01-21 13:25 | URNOTE ---
Request received for authorization forJoesph ([id number]). Prior authorization is not required as services are based on medical necessity and follow Medicare guidelines.
[2024-03-16 13:48] VITALS: BP 145/75; PULSE 84; RESP 16; TEMP 36.2; O2SAT 97
[2024-03-16 14:07] LABS: Creatinine* 0.9 mg/dL (0.5-1.5); Est. Creatinine Clearance* 62.14; Estimated Glomerular Filt Rate 84 ml/min
[2024-03-16 14:08] LABS: Calcium* 9.2 mg/dL (8.4-10.6); Phosphorus* 2.9 mg/dL (2.5-4.5)
[2024-03-16] MEDS: ZOLEDRONIC ACID 5 mg/100 ml 100 ML 400 MG IVPB (14:33)
== END 2024-09-12 23:59 | disposition home or self-care (01) ==
LOC: CCIC 13:01
PROVIDERS: PCP Family Medicine; Referring Provider Family Medicine; Visit Provider Clinical Nurse Specialist
DX: M81.0 Age-related osteoporosis without current pathological fracture (principal); C64.2 Malignant neoplasm of left kidney, except renal pelvis; C78.89 Secondary malignant neoplasm of other digestive organs; I48.91 Unspecified atrial fibrillation
CPT/HCPCS: 36415; 82310; 82565; 84100; 96365; J3489

== ENCOUNTER 2024-03-29 09:33 | Emergency (ER) | payer MEDICARE, BC, SELFPAY ==
[2024-03-29 09:44] VITALS: BP 175/86; PULSE 66; RESP 18; TEMP 37; O2SAT 97; BMI 28.8
--- NOTE | 2024-03-29 11:36 | ED_ITS ---
HPI - General Adult General Chief complaint: Neck Injury/Pain Stated complaint: Neck pain Time Seen by Provider: 03/29/24 11:24 Source: patient and family Mode of arrival: ambulatory Limitations: no limitations History of Present Illness HPI narrative: Patient is an 83-year-old male coming in today complaining of neck pain located on the neck that started 2 days ago. Patient states that he woke up with a discomfort in the posterolateral left neck, felt like a muscle spasm. He did okay yesterday. However this morning he woke up and it was significantly worse. It catches constantly causes significant amount discomfort the last a few seconds and is just sore at baseline. He denies any systemic symptoms like fevers, chills, nausea or vomiting. He denies changes in his hearing or vision. He does not have headache. He denies difficulty swallowing or chewing. No difficulty breathing or speaking. He states this has happened to him in the past, 1-2 years ago. He is not sure how long it lasted or what made it better. He has been taking Tylenol at home which helped yesterday but did not help this morning. Related Data Home Medications ?Medication ?Instructions ?Recorded ?Confirmed cyanocobalamin (vitamin B-12) 1,000 mcg IM .qmonth 11/06/21 03/16/24 1,000 mcg/mL injection solution warfarin 5 mg tablet 10 mg PO QDAY 11/06/21 03/16/24 calcium-vit D3-ferrous fumarate tab PO BID 08/22/23 08/30/23 600 mg-125 unit-18 mg tablet Allergies Allergy/AdvReac Type Severity Reaction Status Date / Time No Known Drug Allergies Allergy Verified 03/29/24 09:44 Review of Systems Status of ROS: Reports: 6 or more systems reviewed and unremarkable except as noted in History and below [facility] Medical History Metastatic renal cell carcinoma of pancreas ?C64.9 - Malignant neoplasm of unspecified kidney, except renal pelvis (ICD- 10) ?C78.89 - Secondary malignant neoplasm of other digestive organs (ICD-10) Renal cell cancer ?C64.9 - Malignant neoplasm of unspecified kidney, except renal pelvis (ICD- 10) History of kidney cancer (~2013) ?Z85.528 - Personal history of other malignant neoplasm of kidney (ICD-10) Atrial fibrillation ?I48.91 - Unspecified atrial fibrillation (ICD-10) Surgical History S/P YAG capsulotomy, bilateral (11/23/20) ?Z98.890 - Other specified postprocedural states (ICD-10) H/O bilateral cataract extraction (~2020) ?Z98.41 - Cataract extraction status, right eye (ICD-10) ?Z98.42 - Cataract extraction status, left eye (ICD-10) History of partial nephrectomy (2013) ?Z90.5 - Acquired absence of kidney (ICD-10) History of cholecystectomy (04/08/06) ?Z90.49 - Acquired absence of other specified parts of digestive tract (ICD- 10) Social History Smoking Status: Former smoker What tobacco products do you use: cigarettes Smoking quit date/years: >15 years ago and cigars Second hand tobacco smoke exposure: No How often do you have a drink containing alcohol: 2-4 times a month How many standard drinks containing alcohol do you have on a typical day: 1 or 2 How often do you have six or more drinks on one occasion: Less than monthly AUDIT-C Alcohol total score: 3 Non-prescribed substance use: denies use Are you now , , , , never or living with a partner: Social isolation score (0-1 are the most socially isolated patients): 0 Exam Narrative: Exam Narrative: Well-nourished well-developed patient in some mild discomfort. Alert and oriented. Answers questions appropriately. Mood and affect are appropriate. Thoughts are goal oriented and rational. No tangential or magical thinking noted. Patient speaks in full sentences without needing to catch his breath. He does not appear ill or toxic. HEENT: Normocephalic atraumatic. Pupils are equally round reactive to light. Extraocular muscles are intact. Conjunctivae are moist without any icterus noted. Moist mucous membranes. Neck is soft. Patient has some mild tenderness along the lateral border of the left trapezius. The muscle is quite tense when compared to the right side. He has tenderness when he turns his head to the left, pain increases when he has to turn against resistance. There is no swelling or masses appreciated of the neck. No skin changes, no rashes. Const: Vital Signs, click to edit/add: Vital Signs - 24 hr 03/29/24 09:44 Temperature 98.6 F Pulse Rate [Pulse Oximeter] 66 Respiratory Rate 18 Blood Pressure [Ri ght Upper Arm] 175/86 H Pulse Oximetry 97 Oxygen Delivery Me thod Room Air Course Course ED Course: Patient is on Coumadin and cannot take NSAIDs. Patient states that he has had oxycodone in the past and did well with that so we did go ahead and give him 1 dose of that while he was here. We discussed rest, gentle stretching, heat. He will also be sent home with 4 tablets of oxycodone and Flexeril. Vital Signs Vital signs: Initial Vital Signs Temperature 98.6 F 03/29/24 09:44 Temperature Source Temporal Artery Scan 03/29/24 09:44 Pulse Rate 66 03/29/24 09:44 Respiratory Rate 18 03/29/24 09:44 Blood Pressure 175/86 H 03/29/24 09:44 Blood Pressure Mean 115 H 03/29/24 09:44 Blood Pressure Position Sitting 03/29/24 09:44 Pulse Oximetry 97 03/29/24 09:44 Oxygen Delivery Method Room Air 03/29/24 09:44 Vital Signs Temperature 98.6 F 03/29/24 09:44 Pulse Rate 66 03/29/24 09:44 Respiratory Rate 18 03/29/24 09:44 Blood Pressure 175/86 H 03/29/24 09:44 Pulse Oximetry 97 03/29/24 09:44 Oxygen Delivery Method Room Air 03/29/24 09:44 Temperature 98.6 F 03/29/24 09:44 Pulse Rate 66 03/29/24 09:44 Respiratory Rate 18 03/29/24 09:44 Blood Pressure 175/86 H 03/29/24 09:44 Pulse Oximetry 97 03/29/24 09:44 Oxygen Delivery Method Room Air 03/29/24 09:44 Medical Decision Making MDM Narrative Medical decision making narrative: 83-year-old male with a trapezius muscle spasm. Treatment per above. Discharge Plan Discharge Clinical Impression: Spasm of left trapezius muscle Patient Disposition: Home, Self-Care Condition: Stable Instructions: Muscle Spasm (ED) Additional Instructions: Rest in a recliner with your head in a comfortable position, it in place that heating pad around her neck. Do not apply heat directly to the skin. Do not use heat for more than 20 minutes at a time. You can also try icing the area to see if that feels good. Do not apply ice directly to skin do not ice for more than 20 minutes at a time. Okay to take oxycodone as needed for significant pain if the Tylenol does not work. Oxycodone can cause constipation. If this occurs recommend to start taking daily MiraLax for a few days. Oxycodone can also cause dizziness so do not operating heavy machinery and make sure that someone is home with you when you take this medication. Lastly, you can also try taking a Flexeril, which is a muscle relaxer, to see if this gives you some relief. Fifteen tablets of Flexeril in 4 tablets of 5 mg oxycodone sent to [facility]. Prescriptions: No Action cyanocobalamin (vitamin B-12) 1,000 mcg/mL solution 1,000 mcg IM .qmonth [id number] fumarate 600-125-18 mg-unit-mg tablet PO BID warfarin 5 mg tablet 10 mg PO QDAY Patient Comments: TAKE 2 TABLETS BY MOUTH EVERY DAY OR DIRECTED Follow Up/Referrals: Brien Blunt MD [Primary Care Provider] - Stand Alone Forms: [employer] Info Instructions
[2024-03-29] MEDS: OXYCODONE 5 MG TABLET PO (11:49)
== END 2024-03-29 12:00 | disposition home or self-care (01) ==
PROVIDERS: Emergency Provider Family Medicine; PCP Family Medicine
DX: M62.838 Other muscle spasm (principal)
CPT/HCPCS: 82565; 99283; 99284; A9270

== ENCOUNTER 2024-03-31 07:13 | Emergency (ER) | payer MEDICARE, BC, SELFPAY ==
[2024-03-31 07:33] VITALS: O2SAT 96
[2024-03-31 07:34] VITALS: BP 162/75; PULSE 73; RESP 20; TEMP 37; O2SAT 95; BMI 28.8
--- NOTE | 2024-03-31 08:25 | CRLHL7_ITS ---
For Patients: As a result of the 21st Century Cures Act, medical imaging exams and procedure reports are released immediately into your electronic medical record. You may view this report before your referring provider. If you have questions, please contact your health care provider. INDICATION: NECK PAIN X 4 DAYS. UNABLE TO MOVE NECK SIDE TO SIDE. HX OF PANCREATIC CANCER. TECHNIQUE: CT soft tissue of the neck was acquired with 120 cc Isovue 370 IV contrast. COMPARISON: None. FINDINGS: Dental hardware associated artifact limits evaluation of nearby structures. Skull base: Severe mucosal thickening with associated sinus wall sclerosis thickening in the left maxillary and sphenoid sinuses, indicating chronic inflammation. Pharynx/Larynx/Trachea: Epiglottis is normal. Airway is patent. Adjacent soft tissues are normal. Salivary glands: Unremarkable. Thyroid gland: Unremarkable. No significant nodules. Lymph nodes: No lymphadenopathy. Vessels: Unremarkable for age. Bones: Unremarkable for age. No acute fracture or subluxation in the cervical spine. Misc: No inflammation, mass or fluid collection. Lung apices: Unremarkable. IMPRESSION: No acute findings in the neck. No etiology for the reported symptoms is identified. Please note that all CT scans at this facility use dose modulation, iterative reconstruction, and/or weight-based dosing when appropriate to reduce radiation dose to as low as reasonably achievable. Dictated by Walker Nolasco MD @ 03/31/2024 9:47:42 AM (Electronically Signed)
--- NOTE | 2024-03-31 08:29 | ED_ITS ---
HPI - Neck Pain/Injury General Date Seen: 03/31/24 Chief Complaint: Neck Injury/Pain Stated Complaint: Neck Pain Time Seen by Provider: 03/31/24 08:11 Source: patient Mode of arrival: ambulatory Limitations: no limitations History of Present Illness HPI Narrative: Patient is an 83-year-old male with a history of renal cell cancer with metastasis to the pancreas not currently on treatment due to improvement of lesion presenting to the emergency department for neck pain. He states his neck pain started 4 days ago when he woke up. States his initially just on the left side but has now worsened is now on the right side of his neck. Radiates down to her shoulders, lateral chest and back. Denies having issues with neck pain before. States the pain is severe and is painful to move his head at all. Was discharged with oxycodone and a muscle relaxant any states though seem to help but he has used them all up ready. Has been trying Tylenol but no improvement he states. Denies any weakness or numbness in his extremities. Denies fevers, chills, history could be who read states the pain seems to be in the lateral aspects of his neck. Denies any midline neck tenderness. States he a PET scan 3 weeks ago that showed no new metastasis. No other concerns noted Related Data Home Medications ?Medication ?Instructions ?Recorded ?Confirmed cyanocobalamin (vitamin B-12) 1,000 mcg IM .qmonth 11/06/21 03/16/24 1,000 mcg/mL injection solution warfarin 5 mg tablet 10 mg PO QDAY 11/06/21 03/16/24 calcium-vit D3-ferrous fumarate tab PO BID 08/22/23 08/30/23 600 mg-125 unit-18 mg tablet Allergies Allergy/AdvReac Type Severity Reaction Status Date / Time No Known Drug Allergies Allergy Verified 03/31/24 09:38 Review of Systems Status of ROS: Reports: 10 or more systems reviewed and unremarkable except as noted in History and below PFSH PFS Medical History Metastatic renal cell carcinoma of pancreas ?C64.9 - Malignant neoplasm of unspecified kidney, except renal pelvis (ICD- 10) ?C78.89 - Secondary malignant neoplasm of other digestive organs (ICD-10) Renal cell cancer ?C64.9 - Malignant neoplasm of unspecified kidney, except renal pelvis (ICD- 10) History of kidney cancer (~2013) ?Z85.528 - Personal history of other malignant neoplasm of kidney (ICD-10) Atrial fibrillation ?I48.91 - Unspecified atrial fibrillation (ICD-10) Surgical History S/P YAG capsulotomy, bilateral (11/23/20) ?Z98.890 - Other specified postprocedural states (ICD-10) H/O bilateral cataract extraction (~2020) ?Z98.41 - Cataract extraction status, right eye (ICD-10) ?Z98.42 - Cataract extraction status, left eye (ICD-10) History of partial nephrectomy (2013) ?Z90.5 - Acquired absence of kidney (ICD-10) History of cholecystectomy (04/08/06) ?Z90.49 - Acquired absence of other specified parts of digestive tract (ICD- 10) Social History Smoking Status: Former smoker What tobacco products do you use: cigarettes Smoking quit date/years: >15 years ago and cigars Second hand tobacco smoke exposure: No How often do you have a drink containing alcohol: 2-4 times a month How many standard drinks containing alcohol do you have on a typical day: 1 or 2 How often do you have six or more drinks on one occasion: Less than monthly AUDIT-C Alcohol total score: 3 Non-prescribed substance use: denies use Are you now , , , , never or living with a partner: Social isolation score (0-1 are the most socially isolated patients): 0 Exam Narrative: Exam Narrative: Const: Well-nourished, Well-developed, in mild distress Eyes: PERRL, no conjunctival injection, and symmetrical lids HENT: Atraumatic external nose and ears. Moist mucous membranes. Neck: Bilateral paraspinal tenderness along with tenderness into the upper trapezius muscles. No midline tenderness MSK:Extremities w/o deformity, Normal Active ROM Skin: Warm, Dry. No rashes or lesions. Neuro: Normal Muscle tone, No focal neurological deficits. Psych: Awake, Alert, & Oriented x3. Appropriate mood and affect. Const: Vital Signs, click to edit/add: Vital Signs - 24 hr 03/31/24 07:34 Temperature 98.6 F Pulse Rate [Pulse Oximeter] 73 Respiratory Rate 20 Blood Pressure [Ri ght Upper Arm] 162/75 H Pulse Oximetry 95 Oxygen Delivery Me thod Room Air Course Vital Signs Vital signs: Initial Vital Signs Temperature 98.6 F 03/31/24 07:34 Temperature Source Temporal Artery Scan 03/31/24 07:34 Pulse Rate 73 03/31/24 07:34 Respiratory Rate 20 03/31/24 07:34 Blood Pressure 162/75 H 03/31/24 07:34 Blood Pressure Mean 104 03/31/24 07:34 Blood Pressure Position Sitting 03/31/24 07:34 Pulse Oximetry 95 03/31/24 07:34 Oxygen Delivery Method Room Air 03/31/24 07:34 Vital Signs Temperature 98.6 F 03/31/24 07:34 Pulse Rate 73 03/31/24 07:34 Respiratory Rate 20 03/31/24 07:34 Blood Pressure 162/75 H 03/31/24 07:34 Pulse Oximetry 95 03/31/24 07:34 Oxygen Delivery Method Room Air 03/31/24 07:34 Temperature 98.6 F 03/31/24 07:34 Pulse Rate 73 03/31/24 07:34 Respiratory Rate 20 03/31/24 07:34 Blood Pressure 162/75 H 03/31/24 07:34 Pulse Oximetry 95 03/31/24 07:34 Oxygen Delivery Method Room Air 03/31/24 07:34 Medications Administered Medications: Discontinued Medications Generic Name Dose Route Start Last Admin Trade Name Freq PRN Reason Stop Dose Admin Morphine Sulfate 4 mg 03/31/24 08:25 03/31/24 08:40 Morphine 4 Mg/Ml Inj IVP 03/31/24 08:26 4 mg ONCE ONE Administration MDM - Neck Pain/Injury MDM Narrative Medical decision making narrative: Patient is an 83-year-old male presenting for neck pain. He has a history of cancer and wall healing normal PET scan few weeks ago there is some chance this could be related to metastasis. May also be spinal stenosis or other spinal column issues. Will do a CT scan cervical spine along with the CT neck with IV contrast initially for better evaluation. Will give him morphine for pain. CT scan of the cervical spine is reconstituted from the soft tissue neck. Was evaluated by myself the radiologist showing no concerning abnormalities. After speaking to the patient's daughter on the phone she informed the patient has not been moving his neck much due to concerns about the pain and asked if stretching would help. I explained that I do believe stretcher be very beneficial. I informed him that the longer he keeps his neck still the stiffer and more painful it will become. I will give another prescription for oxycodone. Gave him 12 pills this time informed them that there unlikely be able to get further prescriptions from our emergency department. Also gave a prednisone burst case there is any inflammation causing his pain. Also prescribed Toradol. I did inform than the Toradol dose increases bleeding risk considering he is on warfarin but is okay to take it every now and then to help with his symptoms. He has normal kidney function. Unable to do an MRI as he does have a pacemaker. Patient will be discharged his family agrees with this plan. Lab Data Labs: Lab Results 03/31/24 Range/Units 08:45 POC Creatinine 1.0 (0.6-1.3) mg/dl Imaging Data CT scan soft tissue neck: Attestation: I have reviewed the pertinent imaging results. Radiologist's impression: No acute findings in the neck. No etiology for the reported symptoms is identified. Please note that all CT scans at this facility use dose modulation, iterative reconstruction, and/or weight-based dosing when appropriate to reduce radiation dose to as low as reasonably achievable. Dictated by Walker Nolasco MD @ 03/31/2024 9:47:42 AM Discharge Plan Discharge Clinical Impression: Strain of neck muscle Qualifiers: Encounter type: subsequent encounter Qualified Code(s): S16.1XXD - Strain of muscle, fascia and tendon at neck level, subsequent encounter Patient Disposition: Home, Self-Care Condition: Stable Instructions: Cervical Strain (DC) Additional Instructions: It is important to stretch your neck as much as possible to help with your symptoms. Start with small movements and gradually work your way up. The longer you hold still the stiffer and more painful your neck will be come. Take Tylenol as needed for neck pain and if that is not helping use the oxycodone. If he still needs more also take Toradol. Be aware though the Toradol can increase your bleeding risk considering your on warfarin. Use the prednisone as directed. Return to emergency department for new or worsening symptoms. If the same symptoms persist I recommend following up with your primary care provider to look into scheduling an outpatient MRI. You will unlikely be able to get further oxycodone prescriptions from our emergency department Prescriptions: No Action cyanocobalamin (vitamin B-12) 1,000 mcg/mL solution 1,000 mcg IM .qmonth [id number] fumarate 600-125-18 mg-unit-mg tablet PO BID warfarin 5 mg tablet 10 mg PO QDAY Patient Comments: TAKE 2 TABLETS BY MOUTH EVERY DAY OR DIRECTED Follow Up/Referrals: Brien Blunt MD [Primary Care Provider] - Stand Alone Forms: [employer] Info Instructions
[2024-03-31] MEDS: MORPHINE 4 MG/ML INJ IVP (08:40)
== END 2024-03-31 10:31 | disposition home or self-care (01) ==
PROVIDERS: Emergency Provider Student in an Organized Health Care Education/Training Program; PCP Family Medicine
DX: S16.1XXD Strain of muscle, fascia and tendon at neck level, subsequent encounter (principal)
CPT/HCPCS: 70491; 82565; 94761; 96374; 99284; 99285; J2270; Q9967